=== PATIENT | female | born 1935 | race Caucasian/White ===

== ENCOUNTER 2016-06-15 14:13 | Outpatient (CLI) | payer MEDICARE, OTHER | END 2016-06-15 14:14 | disposition home or self-care (01) | DX: G47.33 Obstructive sleep apnea (adult) (pediatric) (principal) | CPT/HCPCS: 99214; G0463 ==

== ENCOUNTER 2016-07-27 08:41 | Outpatient (CLI) | payer MEDICARE, OTHER | END 2016-07-27 08:42 | disposition home or self-care (01) | DX: G47.33 Obstructive sleep apnea (adult) (pediatric) (principal) | CPT/HCPCS: 99213; G0463 ==

== ENCOUNTER 2016-09-07 09:00 | Outpatient (CLI) | payer MEDICARE, OTHER | END 2016-09-07 09:01 | disposition home or self-care (01) | DX: E11.65 Type 2 diabetes mellitus with hyperglycemia (principal); E88.81 Metabolic syndrome and other insulin resistance ==

== ENCOUNTER 2016-09-12 09:00 | Outpatient (CLI) | payer MEDICARE, OTHER | END 2016-09-12 09:01 | DX: N30.90 Cystitis, unspecified without hematuria (principal) ==

== ENCOUNTER 2017-03-26 07:11 | Outpatient (CLI) | payer MEDICARE, OTHER ==
[2017-03-26 11:59] LABS: BASOPHILS # (AUTO) 0.1 10^3/uL (0.0-0.1); BASOPHILS % (AUTO) 0.8 %; EOSINOPHILS # (AUTO) 0.3 10^3/uL (0.0-0.7); EOSINOPHILS % (AUTO) 4.2 %; HCT - HEMATOCRIT 36.7 % (37.0-47.0); HGB - HEMOGLOBIN 12.2 g/dL (12.0-16.0); LYMPHOCYTES # (AUTO) 2.1 10^3/uL (1.5-3.5); LYMPHOCYTES % (AUTO) 29.9 %; MEAN CORPUSCULAR HEMOGLOBIN 28.8 pg (27.0-31.0); MEAN CORPUSCULAR HGB CONC 33.3 g/dL (32.0-36.0); MEAN CORPUSCULAR VOLUME 86.7 fL (81.0-99.0); MEAN PLATELET VOLUME 9.4 fL (7.9-10.8); MONOCYTES # (AUTO) 0.5 10^3/uL (0.0-1.0); MONOCYTES % (AUTO) 6.7 %; NEUTROPHILS # (AUTO) 4.1 10^3/uL (1.5-6.6); NEUTROPHILS % (AUTO) 58.4 %; NUCLEATED RED BLOOD CELLS AUTO 0.1 /100WBC; RED BLOOD COUNT 4.23 10^6/uL (4.20-5.40); RED CELL DISTRIBUTION WIDTH 13.9 % (12.0-15.0); UNCORRECTED WHITE BLOOD COUNT 7.1 x10^3/uL; WHITE BLOOD COUNT 7.1 x10^3/uL (4.8-10.8)
[2017-03-26 12:26] LABS: ALBUMIN/GLOBULIN RATIO 1.2 (1.0-2.2); BILIRUBIN,TOTAL 0.4 mg/dL (0.2-1.0); BUN - BLOOD UREA NITROGEN 27 mg/dL (6-20); CALCIUM 9.3 mg/dL (8.5-10.3); CARBON DIOXIDE - CO2 25 mmol/L (21-32); CHLORIDE 99 mmol/L (101-111); CHOL/HDL RATIO 3.9 (<4.4); CHOLESTEROL 145 mg/dL; CREATININE 0.9 mg/dL (0.4-1.0); GFR - MDRD 60 (>89); GLUCOSE 133 mg/dL (70-100); HDL CHOLESTEROL 37 mg/dL; LDL/HDL RATIO 2.2 (<4.4); POTASSIUM 3.7 mmol/L (3.5-5.0); SODIUM 134 mmol/L (135-145); TOTAL PROTEIN 6.9 g/dL (6.7-8.2); TRIGLYCERIDES 134 mg/dL; VLDL CHOLESTEROL 27 mg/dL
[2017-03-26 12:49] LABS: HEMOGLOBIN A1C 0.59 g/dL
== END 2017-03-26 07:12 | disposition home or self-care (01) ==
LOC: LAB.F 07:11
PROVIDERS: ATTEND Nurse Practitioner Primary Care
DX: E11.9 Type 2 diabetes mellitus without complications (principal); Z79.899 Other long term (current) drug therapy; K57.90 Diverticulosis of intestine, part unspecified, without perforation or abscess without bleeding; I10 Essential (primary) hypertension
CPT/HCPCS: 36415; 80053; 80061; 82043; 83036; 85025

== ENCOUNTER 2017-05-21 10:05 | Outpatient (CLI) | payer MEDICARE, OTHER ==
[2017-05-24 12:41] LABS: TEST RESULT REPORT
== END 2017-05-21 10:06 | disposition home or self-care (01) ==
LOC: LAB.F 10:05
PROVIDERS: ATTEND Naturopath
DX: E27.9 Disorder of adrenal gland, unspecified (principal); E04.9 Nontoxic goiter, unspecified; R53.83 Other fatigue
CPT/HCPCS: 36415; 81599; 82607; 82627; 83789; 84439; 84481; 86376; 86800

== ENCOUNTER 2017-06-15 08:01 | Outpatient (CLI) | payer MEDICARE, OTHER ==
[2017-06-15 12:50] LABS: HB2 TOTAL 13.3 g/dL; HEMOGLOBIN A1C 0.63 g/dL; HEMOGLOBIN A1C % 6.5 % (4.6-6.2)
[2017-06-15 12:59] LABS: ALT ALANINE AMINOTRANSFERASE 19 IU/L (10-60); AST ASPARTATE AMINOTRANSFERASE 24 IU/L (10-42); GLUCOSE 129 mg/dL (70-100); LDL CHOLESTEROL,DIRECT 40 mg/dL
== END 2017-06-15 08:02 | disposition home or self-care (01) ==
LOC: LAB.F 08:01
PROVIDERS: ATTEND Nurse Practitioner Primary Care
DX: E11.9 Type 2 diabetes mellitus without complications (principal); Z79.899 Other long term (current) drug therapy
CPT/HCPCS: 36415; 82947; 83036; 84450; 84460

== ENCOUNTER 2017-08-21 11:07 | Outpatient (CLI) | payer MEDICARE, OTHER | END 2017-08-21 11:08 | disposition home or self-care (01) | LOC: SC 11:07 | PROVIDERS: ATTEND Nurse Practitioner Family | DX: G47.33 Obstructive sleep apnea (adult) (pediatric) (principal) | CPT/HCPCS: 99214; G0463; 99212 ==

== ENCOUNTER 2017-09-13 09:01 | Outpatient (CLI) | payer MEDICARE, OTHER | END 2017-09-13 09:02 | disposition home or self-care (01) | LOC: LAB.F 09:01 | PROVIDERS: ATTEND Naturopath | DX: E06.9 Thyroiditis, unspecified (principal); E27.9 Disorder of adrenal gland, unspecified; K90.9 Intestinal malabsorption, unspecified | CPT/HCPCS: 36415; 81599; 82542; 82627; 83789; 84439; 84481; 86376 ==

== ENCOUNTER 2017-10-31 11:18 | Outpatient (CLI) | payer MEDICARE, OTHER ==
--- NOTE | 2017-11-01 17:16 | Ultrasound Report ---
CAROTID DUPLEX: 10/31/2017 CLINICAL INDICATION: Partial retinal artery occlusion. TECHNIQUE: Real-time sonographic vascular imaging was performed by the training director through the carotid arteries utilizing both color-flow and Doppler spectral analysis. Multiple school admissions representative static images were saved for review. RIGHT Vessel PSV cm/sec EDV cm/sec ICA/CCA RSV Ratio Degree of Stenosis Plaque Estimate % RCCA Prox 96 -- -- RCCA Dist 79 17 -- RECA 107 -- -- RT BULB 52 12 0.66 TAHIR Prox 69 15 0.87 TAHIR Mid 66 17 0.84 TAHIR Dist 152 25 1.92 RVA 43 -- -- RVA flow direction: Antegrade LEFT Vessel PSV cm/sec EDV cm/sec ICA/CCA RSV Ratio Degree of Stenosis Plaque Estimate % LCCA Prox 83 -- -- LCCA Dist 72 15 -- LECA 107 -- -- LFT BULB 41 10 0.57 LICA Prox 110 25 1.53 LICA Mid 115 25 1.60 LICA Dist 141 28 1.96 LVA 48 -- -- LVA flow direction: Antegrade Velocity criteria are extrapolated from diameter data as defined by the Society of Radiologists in Ultrasound Consensus Conference Radiology 2003; 229; 340-346. 3 Degree of Stenosis % ICA PSV cm/sec ICA EDV cm/sec ICA/CCA PSV Ratio Plaque Estimate % Normal < 125 < 40 < 2.0 None <50 < 125 < 40 < 2.0 < 50 50-69 125-130 40-100 2.0-4.0 >/=50 >/=70 but less than near occlusion > 230 > 100 > 4.0 >/=50 Near occlusion High, low or undetectable Variable Variable Visible Total occlusion Undetectable Not applicable Not applicable No detectable lumen FINDINGS RIGHT: There is minimal plaquing in right carotid bifurcation, without evidence of a focal hemodynamically significant stenosis. LEFT: There is minimal plaquing in the left carotid bifurcation, without evidence of a focal hemodynamically significant stenosis. The vertebral arteries demonstrate antegrade flow bilaterally. IMPRESSION: MINIMAL PLAQUING BILATERALLY, WITHOUT EVIDENCE OF A FOCAL HEMODYNAMICALLY SIGNIFICANT CAROTID STENOSIS. TD: 11/01/2017 08:51 [facility]
== END 2017-10-31 11:19 | disposition home or self-care (01) ==
LOC: DI 11:18
PROVIDERS: ATTEND Ophthalmology
DX: H34.213 Partial retinal artery occlusion, bilateral (principal); I51.7 Cardiomegaly; I27.20 Pulmonary hypertension, unspecified
CPT/HCPCS: 93306; 93880

== ENCOUNTER 2017-12-14 10:59 | Outpatient (CLI) | payer MEDICARE, OTHER ==
[2017-12-14 13:17] LABS: BASOPHILS % (AUTO) 0.6 %; EOSINOPHILS # (AUTO) 0.3 10^3/uL (0.0-0.7); EOSINOPHILS % (AUTO) 3.9 %; HGB - HEMOGLOBIN 12.8 g/dL (12.0-16.0); LYMPHOCYTES # (AUTO) 1.7 10^3/uL (1.5-3.5); LYMPHOCYTES % (AUTO) 22.2 %; MEAN CORPUSCULAR HEMOGLOBIN 30.2 pg (27.0-31.0); MEAN CORPUSCULAR HGB CONC 33.9 g/dL (32.0-36.0); MEAN PLATELET VOLUME 8.1 fL (7.9-10.8); MONOCYTES # (AUTO) 0.5 10^3/uL (0.0-1.0); MONOCYTES % (AUTO) 6.5 %; NEUTROPHILS # (AUTO) 5.2 10^3/uL (1.5-6.6); NEUTROPHILS % (AUTO) 66.8 %; PLT - PLATELET COUNT 261 10^3/uL (130-450); RED BLOOD COUNT 4.23 10^6/uL (4.20-5.40); RED CELL DISTRIBUTION WIDTH 13.5 % (12.0-15.0); WHITE BLOOD COUNT 7.8 x10^3/uL (4.8-10.8)
[2017-12-14 13:32] LABS: ALBUMIN 3.4 g/dL (3.2-5.5); ALBUMIN/GLOBULIN RATIO 0.9 (1.0-2.2); ALKALINE PHOSPHATASE 90 IU/L (42-121); ALT ALANINE AMINOTRANSFERASE 21 IU/L (10-60); AST ASPARTATE AMINOTRANSFERASE 23 IU/L (10-42); BILIRUBIN,TOTAL 0.4 mg/dL (0.2-1.0); BUN - BLOOD UREA NITROGEN 21 mg/dL (6-20); CALCIUM 9.6 mg/dL (8.5-10.3); CARBON DIOXIDE - CO2 27 mmol/L (21-32); CHLORIDE 99 mmol/L (101-111); CHOL/HDL RATIO 3.1 (<4.4); CHOLESTEROL 147 mg/dL; CREATININE 0.7 mg/dL (0.4-1.0); GFR - MDRD 81 (>89); GLUCOSE 117 mg/dL (70-100); HDL CHOLESTEROL 48 mg/dL; LDL CHOLESTEROL,CALCULATED 67 mg/dL; LDL/HDL RATIO 1.4 (<4.4); MAGNESIUM 1.7 mg/dL (1.7-2.8); SODIUM 134 mmol/L (135-145); TOTAL PROTEIN 7.3 g/dL (6.7-8.2); VLDL CHOLESTEROL 32 mg/dL
[2017-12-14 13:43] LABS: THYROID STIMULATING HORMONE 1.79 uIU/mL (0.34-5.60)
== END 2017-12-14 11:00 | disposition home or self-care (01) ==
LOC: LAB.R 10:59
PROVIDERS: ATTEND Nurse Practitioner Primary Care
DX: I49.9 Cardiac arrhythmia, unspecified (principal); K58.9 Irritable bowel syndrome, unspecified; E78.6 Lipoprotein deficiency; E11.9 Type 2 diabetes mellitus without complications; K21.9 Gastro-esophageal reflux disease without esophagitis; I10 Essential (primary) hypertension; Z79.899 Other long term (current) drug therapy
CPT/HCPCS: 80053; 80061; 83721; 83735; 84439; 84443; 84481; 85025

== ENCOUNTER 2018-04-10 07:12 | Outpatient (CLI) | payer MEDICARE, OTHER ==
[2018-04-10 10:25] LABS: BASOPHILS # (AUTO) 0.1 10^3/uL (0.0-0.1); BASOPHILS % (AUTO) 0.9 %; EOSINOPHILS # (AUTO) 0.3 10^3/uL (0.0-0.7); EOSINOPHILS % (AUTO) 4.6 %; HGB - HEMOGLOBIN 12.6 g/dL (12.0-16.0); LYMPHOCYTES # (AUTO) 2.1 10^3/uL (1.5-3.5); LYMPHOCYTES % (AUTO) 27.6 %; MEAN CORPUSCULAR HEMOGLOBIN 30.6 pg (27.0-31.0); MEAN CORPUSCULAR HGB CONC 34.9 g/dL (32.0-36.0); MEAN CORPUSCULAR VOLUME 87.6 fL (81.0-99.0); MEAN PLATELET VOLUME 8.5 fL (7.9-10.8); MONOCYTES # (AUTO) 0.4 10^3/uL (0.0-1.0); MONOCYTES % (AUTO) 5.8 %; NEUTROPHILS # (AUTO) 4.7 10^3/uL (1.5-6.6); NEUTROPHILS % (AUTO) 61.1 %; PLT - PLATELET COUNT 289 10^3/uL (130-450); RED BLOOD COUNT 4.14 10^6/uL (4.20-5.40); RED CELL DISTRIBUTION WIDTH 13.6 % (12.0-15.0); WHITE BLOOD COUNT 7.7 x10^3/uL (4.8-10.8)
[2018-04-10 10:39] LABS: ALBUMIN 3.5 g/dL (3.2-5.5); BILIRUBIN,TOTAL 0.6 mg/dL (0.2-1.0); CALCIUM 8.8 mg/dL (8.5-10.3); CREATININE 0.7 mg/dL (0.4-1.0)
[2018-04-10 10:48] LABS: HB2 TOTAL 13.6 g/dL; HEMOGLOBIN A1C 0.61 g/dL; HEMOGLOBIN A1C % 6.3 % (4.6-6.2)
== END 2018-04-10 07:13 | disposition home or self-care (01) ==
LOC: LAB.F 07:12
PROVIDERS: ATTEND Nurse Practitioner Primary Care
DX: E55.9 Vitamin D deficiency, unspecified (principal); E11.9 Type 2 diabetes mellitus without complications; Z79.899 Other long term (current) drug therapy; I10 Essential (primary) hypertension
CPT/HCPCS: 36415; 80053; 82043; 82306; 83036; 85025

== ENCOUNTER 2018-05-21 09:48 | Outpatient (CLI) | payer MEDICARE, OTHER ==
[2018-05-21 18:30] LABS: CALCIUM 9.2 mg/dL (8.5-10.3); CREATININE 0.8 mg/dL (0.4-1.0)
== END 2018-05-21 09:49 | disposition home or self-care (01) ==
LOC: LAB.F 09:48
PROVIDERS: ATTEND Internal Medicine Cardiovascular Disease
DX: R60.0 Localized edema (principal)
CPT/HCPCS: 36415; 80048

== ENCOUNTER 2018-07-03 08:00 | Outpatient (CLI) | payer MEDICARE, OTHER | END 2018-07-03 23:59 | disposition home or self-care (01) | LOC: LAB.R 08:00 | PROVIDERS: ATTEND Nurse Practitioner Primary Care | DX: L29.9 Pruritus, unspecified (principal) | CPT/HCPCS: 87086; 87181 ==

== ENCOUNTER 2018-08-26 08:13 | Outpatient (CLI) | payer MEDICARE, OTHER | END 2018-08-26 08:14 | disposition home or self-care (01) | LOC: SC 08:13 | PROVIDERS: ATTEND Nurse Practitioner Family | DX: G47.33 Obstructive sleep apnea (adult) (pediatric) (principal) | CPT/HCPCS: 99214; G0463; 99212 ==

== ENCOUNTER 2018-12-10 07:45 | Outpatient (CLI) | payer MEDICARE, OTHER ==
[2018-12-10 11:23] LABS: CALCIUM 9.5 mg/dL (8.5-10.3); CREATININE 0.9 mg/dL (0.4-1.0)
[2018-12-10 11:24] LABS: HB2 TOTAL 12.8 g/dL; HEMOGLOBIN A1C 0.62 g/dL; HEMOGLOBIN A1C % 6.6 % (4.6-6.2)
== END 2018-12-10 07:46 | disposition home or self-care (01) ==
LOC: LAB.S 07:45
PROVIDERS: ATTEND Nurse Practitioner
DX: E11.9 Type 2 diabetes mellitus without complications (principal)
CPT/HCPCS: 36415; 80048; 82043; 83036

== ENCOUNTER 2019-02-17 15:48 | Outpatient (CLI) | payer MEDICARE, OTHER | END 2019-02-17 23:59 | disposition home or self-care (01) | LOC: LAB.R 15:48 | PROVIDERS: ATTEND Nurse Practitioner | DX: N39.0 Urinary tract infection, site not specified (principal) | CPT/HCPCS: 87077; 87086; 87181 ==

== ENCOUNTER 2019-02-19 08:17 | Outpatient (CLI) | payer MEDICARE, OTHER ==
--- NOTE | 2019-02-21 11:51 | XRAY Report ---
Reason: OSTEOARTHRITIS, M19.90 Procedure Date: 02/19/2019 Accession Number: [id number] / [id number] Procedure: XRS - Knee 3 View LT CPT Code: FULL RESULT: EXAM: LEFT KNEE RADIOGRAPHY EXAM DATE: 02/19/2019 08:33 AM. CLINICAL HISTORY: Osteoarthritis, M1..Chronic left knee pain. COMPARISON: XR KNEE 4 OR MORE VIEWS 05/20/2009 8:40 AM. TECHNIQUE: 3 views. FINDINGS: Bones: Normal. No fractures or bone lesions. Joints: Severe lateral compartment femorotibial degenerative changes with joint space loss and osteophytosis. Near [id number]. Moderate degenerative changes in the medial compartment and the patellofemoral joint. Chondrocalcinosis. Probable effusion. No subluxations. Soft Tissues: Normal. No soft tissue swelling. IMPRESSION: Advanced degenerative changes in the left knee, worst in the lateral compartment of the femorotibial joint, progressed from 2008. Kellgren Antonio Grade 4. Kellgren and Antonio classification of osteoarthritis: Grade 0: no radiographic features of osteoarthritis are present Grade 1: doubtful joint space narrowing (JSN) and possible osteophytic lipping Grade 2: definite osteophytes and possible JSN on anteroposterior weight-bearing radiograph Grade 3: multiple osteophytes, definite JSN, sclerosis, possible bony deformity Grade 4: large osteophytes, marked JSN, severe sclerosis and definite bony deformity RADIA
== END 2019-02-19 08:18 | disposition home or self-care (01) ==
LOC: DI.S 08:17
PROVIDERS: ATTEND Nurse Practitioner
DX: M17.12 Unilateral primary osteoarthritis, left knee (principal)

== ENCOUNTER 2019-03-25 13:00 | Outpatient (CLI) | payer MEDICARE, OTHER ==
[2019-03-25 19:29] LABS: BILIRUBIN,URINE NEGATIVE (NEGATIVE); GLUCOSE, URINE (UA) NEGATIVE (NEGATIVE); KETONES,URINE (UA) NEGATIVE (NEGATIVE); LEUKOCYTE ESTERASE, URINE MODERATE (NEGATIVE); NITRITE,URINE POSITIVE (NEGATIVE); OCCULT BLOOD,URINE MODERATE (NEGATIVE); PH,URINE 5.5 PH (5.0-7.5); PROTEIN,URINE 100 mg/dL (NEGATIVE); UROBILINOGEN,URINE 0.2 (NORMAL) E.U./dL (NORMAL)
[2019-03-25 19:34] LABS: CLARITY,URINE CLOUDY (CLEAR)
[2019-03-25 20:01] LABS: BACTERIA,URINE Many /HPF (None Seen); SQUAMOUS EPITHELIAL CELL,UR NONE SEEN (<= Few)
== END 2019-03-25 13:01 | disposition home or self-care (01) ==
LOC: LAB.R 13:00
PROVIDERS: ATTEND Nurse Practitioner
DX: R82.81 Pyuria (principal)
CPT/HCPCS: 81001; 81003; 87086; 87181

== ENCOUNTER 2019-06-23 08:00 | Outpatient (CLI) | payer MEDICARE, OTHER | END 2019-06-23 23:59 | LOC: LAB.R 08:00 | PROVIDERS: ATTEND Nurse Practitioner | DX: R82.81 Pyuria (principal) | CPT/HCPCS: 87077; 87086; 87181 ==

== ENCOUNTER 2019-10-02 16:49 | Outpatient (CLI) | payer MEDICARE, OTHER ==
--- NOTE | 2019-10-02 13:47 | SLEEP CARE CONSULTATION ---
Information from patient questionnaire entered by Felicity Oliva. I have reviewed and concur with the information entered by Felicity Oliva. This document represents the service I personally performed and the decisions made by me, Charito Linda, RN, MSN, [employer] OPERATOR HELPER. History of Present Illness Service Date and Time: 10/02/2019 1330 Previous diagnosis: Moderate, Obstructive Sleep Apnea-Hypopnea Syndrome AHI: 28.3 Reason for follow up: annual Equipment type: CPAP Equipment obtained from: [facility] Mask style: Nasal Backup mask available: Yes Last cushion change: 3 weeks ago CPAP Compliance Data - Data Reviewed with Patient Average duration of nightly device use: 7h 13m Compliance rate %: 98.9 Current pressure setting (cmH2O): 9 Humidity settin Heated hose settin Average residual AHI: 1.1 Average large leak: 58s Subjective Patient concerns: denies: aerophagia, mask discomfort, air blowing in eyes, mask leak noise, condensation in mask/hose, nasal congestion, dry mouth, nose, throat, epistaxis, other Observed to snore while using device: No Current pressure setting perceived as: comfortable On therapy, patient: reports: sleeping better, awakening more refreshed, being more awake and alert during the day, more rested overall, other. denies: drowsiness while driving Initial [place] Sleepiness Scale score: 4 Allergies and Home Medications Home medication list reviewed: No (no changes ) Review of Systems Review of systems same as previous: Yes Physical Exam Height: 5 ft 6 in Weight: 232 lb (home weight) Body Mass Index: 37.4 BMI Classification: Obese Impression and Plan 1. Obstructive Sleep Apnea-Hypopnea Syndrome, moderate, with good treatment compliance and good apnea control. On CPAP therapy, the patient has better sleep quality and is more rested overall. She is pleased with benefit of CPAP use and is getting supplies as needed from her new [facility]. She feels she has gained a little weight since last seen. Thus I discussed how significant weight gain or loss will affect her apnea risk and CPAP pressure requirements. She is advised to lose weight and of symptoms to report for CPAP pressure adjustment. Patient's apnea severity and rationale for treatment to reduce apnea, improve sleep quality and reduce cardiovascular and cerebrovascular events was reviewed. * Continue CPAP pressure at 9 cmH2O * Notify me if snoring with mask or feeling that the pressure is too much or too little * Attempt to lose weight * Call this office if any problems using CPAP * Return for follow up in 1 year, or sooner if concerns arise Visit Type: Telehealth Phone (to minimize the risk of COVID 19 exposure , the patient agrees to this visit and to bill insurance.) Video Type: Gridsum Patient Location: Home Location of Provider: Home Patient agrees and consents to this telehealth visit type: Yes Time Spent with Patient (minutes): 9 Provider Statement: I spent 100% of the Telehealth Phone Call with the patient with greater than 50% spent counseling the patient and coordination of care.
== END 2019-10-02 16:50 | disposition home or self-care (01) ==
LOC: SC 16:49
PROVIDERS: ATTEND Nurse Practitioner Family
DX: G47.33 Obstructive sleep apnea (adult) (pediatric) (principal); E66.9 Obesity, unspecified; Z68.37 Body mass index [BMI] 37.0-37.9, adult

== ENCOUNTER 2019-11-07 07:59 | Outpatient (CLI) | payer MEDICARE, OTHER ==
[2019-11-07 08:18] LABS: BASOPHILS % (AUTO) 0.5 %; EOSINOPHILS # (AUTO) 0.3 10^3/uL (0.0-0.7); EOSINOPHILS % (AUTO) 3.3 %; HGB - HEMOGLOBIN 11.7 g/dL (12.0-16.0); LYMPHOCYTES # (AUTO) 2.1 10^3/uL (1.5-3.5); LYMPHOCYTES % (AUTO) 25.2 %; MEAN CORPUSCULAR HEMOGLOBIN 29.8 pg (27.0-31.0); MEAN CORPUSCULAR HGB CONC 33.1 g/dL (32.0-36.0); MEAN CORPUSCULAR VOLUME 90.1 fL (81.0-99.0); MONOCYTES # (AUTO) 0.5 10^3/uL (0.0-1.0); MONOCYTES % (AUTO) 6.2 %; NEUTROPHILS # (AUTO) 5.3 10^3/uL (1.5-6.6); NEUTROPHILS % (AUTO) 64.4 %; PLT - PLATELET COUNT 263 10^3/uL (130-450); RED BLOOD COUNT 3.93 10^6/uL (4.20-5.40); RED CELL DISTRIBUTION WIDTH 13.2 % (12.0-15.0); WHITE BLOOD COUNT 8.2 x10^3/uL (4.8-10.8)
[2019-11-07 08:34] LABS: ALBUMIN 3.4 g/dL (3.2-5.5); ALBUMIN/GLOBULIN RATIO 0.9 (1.0-2.2); ALKALINE PHOSPHATASE 132 IU/L (42-121); ALT ALANINE AMINOTRANSFERASE 18 IU/L (10-60); AST ASPARTATE AMINOTRANSFERASE 20 IU/L (10-42); BILIRUBIN,TOTAL 0.3 mg/dL (0.2-1.0); BUN - BLOOD UREA NITROGEN 27 mg/dL (6-20); CALCIUM 9.1 mg/dL (8.5-10.3); CARBON DIOXIDE - CO2 26 mmol/L (21-32); CHLORIDE 102 mmol/L (101-111); CHOL/HDL RATIO 3.4 (<4.4); CHOLESTEROL 152 mg/dL; CREATININE 0.9 mg/dL (0.4-1.0); GLUCOSE 139 mg/dL (70-100); HDL CHOLESTEROL 45 mg/dL; HEMOGLOBIN A1C 0.58 g/dL; HEMOGLOBIN A1C % 6.6 % (4.6-6.2); LDL CHOLESTEROL,CALCULATED 80 mg/dL; LDL/HDL RATIO 1.8 (<4.4); SODIUM 137 mmol/L (135-145); TOTAL PROTEIN 7.2 g/dL (6.7-8.2); VLDL CHOLESTEROL 27 mg/dL
== END 2019-11-07 08:00 | disposition home or self-care (01) ==
LOC: LAB 07:59
PROVIDERS: ATTEND Nurse Practitioner
DX: E11.9 Type 2 diabetes mellitus without complications (principal); I49.9 Cardiac arrhythmia, unspecified; E07.9 Disorder of thyroid, unspecified; Z79.899 Other long term (current) drug therapy; E78.6 Lipoprotein deficiency; E55.9 Vitamin D deficiency, unspecified; K21.9 Gastro-esophageal reflux disease without esophagitis; I10 Essential (primary) hypertension
CPT/HCPCS: 36415; 80053; 80061; 82043; 82306; 83036; 83721; 84443; 85025

== ENCOUNTER 2019-12-31 09:32 | Emergency (ER) | payer MEDICARE, OTHER ==
[2019-12-31] MEDS ORDERED: MAGNESIUM SULFATE 2 GRAM 2 GM/50 ML BAG IV ONE (09:59)
--- NOTE | 2019-12-31 10:03 | ED Physician Documentation ---
History of Present Illness - Stated complaint Stated Complaint: IRREGULAR HEARTBEAT - Chief complaint Chief Complaint: Cardiac - History obtained from History obtained from: Patient, Family - History of Present Illness Timing: How many days ago (3) Pain level max: 0 Pain level now: 0 - Additonal information Additional information: 84-year-old female presents to the emergency department stating that she has had palpitations for the past 2 to 3 days. Seems to be better standing up, worse lying down. No chest pain. No shortness of breath. No nausea. No vomiting. No changes to her medications. She is unclear to what medication she takes. No recent illnesses. No fevers. Review of Systems Ten Systems: 10 systems reviewed and negative Constitutional: denies: Fever, Chills Ears: denies: Ear pain Nose: denies: Rhinorrhea / runny nose, Congestion Cardiac: denies: Chest pain / pressure Respiratory: denies: Dyspnea, Cough, Hemoptysis, Wheezing GI: denies: Abdominal Pain, Nausea, Vomiting, Diarrhea Skin: denies: Rash Musculoskeletal: denies: Neck pain, Back pain Neurologic: denies: Focal weakness, Numbness, Headache PD PAST MEDICAL HISTORY - Past Medical History Cardiovascular: Hypertension Respiratory: Sleep apnea, CPAP use, Other Neuro: None Endocrine/Autoimmune: Type 2 diabetes GI: GERD TURKEY EGG GATHERER: None : Incontinence HEENT: None Psych: None Musculoskeletal: Osteoporosis Derm: Other drug resistant infections - Past Surgical History Past Surgical History: Yes General: Colonoscopy /TURKEY EGG GATHERER: Tubal ligation, Other - Present Medications Home Medications: Ambulatory Orders Medication Instructions Recorded Confirmed Amlodipine Besylate 10 mg PO DAILY 09/01/13 12/31/19 Losartan [Cozaar] 100 mg PO DAILY 09/01/13 12/31/19 Metformin HCl 1,000 mg PO BID 09/01/13 12/31/19 Metoprolol Succinate [Toprol Xl] 100 mg PO DAILY 09/01/13 12/31/19 Omeprazole [Prilosec] 20 mg PO DAILY 09/01/13 12/31/19 Aspirin [Aspir 81] 81 mg PO DAILY 09/02/13 12/31/19 Furosemide 20 mg PO ONCE 12/31/19 12/31/19 Furosemide 40 mg PO ONCE 12/31/19 12/31/19 Potassium Chloride 10 meq PO DAILY 12/31/19 12/31/19 - Allergies Allergies/Adverse Reactions: Allergies Allergy/AdvReac Type Severity Reaction Status Date / Time erythromycin base Allergy Unknown Unknown Verified 12/31/19 09:41 [Erythromycin Base] - Social History Does the pt smoke?: No Smoking Status: Former smoker PD ED PE NORMAL - Vitals Vital signs reviewed: Yes - General General: Alert and oriented X 3, No acute distress, Well developed/nourished - HEENT HEENT: Moist mucous membranes - Neck Neck: Supple, no meningeal sign - Cardiac Cardiac: RRR, Strong equal pulses - Respiratory Respiratory: No respiratory distress, Clear bilaterally - Abdomen Abdomen: Soft, Non tender, Non distended - Derm Derm: Warm and dry - Extremities Extremities: No calf tenderness / cord - Neuro Neuro: Alert and oriented X 3 - Psych Psych: Normal mood, Normal affect Results - Vitals Vitals: Vital Signs - 24 hr 12/31/19 12/31/19 12/31/19 09:41 11:27 11:49 Temperature 36.8 C 36.6 C Heart Rate 70 58 L 59 L Respiratory 16 16 16 Rate Blood Pressure 174/72 H 174/70 H 173/98 H O2 Saturation 98 95 98 Oxygen O2 Source Room air - EKG (time done) 0941 Rate: Rate (enter#) (69) Rhythm: NSR, Other (PVC) [place]: Normal Intervals: Normal [place] QRS: Normal Ischemia: Non specific changes Compare to prior EKG: Old EKG unavailable - Labs Labs: Laboratory Tests 12/31/19 12/31/19 12/31/19 09:40 09:40 09:40 WBC 10.6 RBC 4.31 Hgb 12.8 Hct 38.5 MCV 89.3 MCH 29.7 MCHC 33.2 RDW 13.0 Plt Count 311 MPV 10.0 Neut # (Auto) 7.0 H Lymph # (Auto) 2.6 [place] # (Auto) 0.6 Eos # (Auto) 0.3 Baso # (Auto) 0.1 Absolute Nucleated RBC 0.00 Nucleated RBC % 0.0 Sodium 136 Potassium 3.7 Chloride 100 L Carbon Dioxide 24 Anion Gap 12.0 BUN 19 Creatinine 0.9 Estimated GFR (MDRD) 60 L Glucose 186 H Calcium 9.3 Phosphorus 2.7 Magnesium 1.5 L Total Bilirubin 0.6 AST 20 ALT 18 Alkaline Phosphatase 143 H Troponin I High Sens 4.9 Total Protein 7.6 Albumin 3.6 Globulin 4.0 Albumin/Globulin Ratio 0.9 L Lipase 49 - Rads (name of study) Chest x-ray Radiology: Prelim report reviewed, EMP read contemporaneously, See rad report (No acute abnormality) PD MEDICAL DECISION MAKING - ED course Complexity details: reviewed results, re-evaluated patient, considered differential, d/w patient, d/w family ED course: 84-year-old female presents to the emergency department with palpitations. Appears to have frequent PVCs. She is found to be hypomagnesemic. Magnesium was replaced. Feels better. She is already on metoprolol. We will have her follow-up with her doctor for further care. No evidence of acute coronary syndrome, PE, aortic dissection, pneumothorax. Patient counseled regarding signs and symptoms for which I believe and urgent re-evaluation would be necessary. Patient with good understanding of and agreement to plan and is comfortable going home at this time This document was made in part using voice recognition software. While efforts are made to proofread this document, sound alike and grammatical errors may occur. Departure - Departure Disposition: 01 Home, Self Care Clinical Impression: PVC (premature ventricular contraction), Hypomagnesemia Condition: Good Instructions: ED Palpitations Follow-Up: Erin Hodges ARNP, TIPPLE ENGINEER-C [Primary Care Provider] - Within 1 week Comments: Follow-up with your doctor for further care. We will add magnesium onto your pills. Your magnesium level was low today. Return if you worsen. Discharge Date/Time: 12/31/19 12:03
[2019-12-31 10:04] LABS: BASOPHILS # (AUTO) 0.1 10^3/uL (0.0-0.1); BASOPHILS % (AUTO) 0.7 %; EOSINOPHILS # (AUTO) 0.3 10^3/uL (0.0-0.7); EOSINOPHILS % (AUTO) 2.6 %; HGB - HEMOGLOBIN 12.8 g/dL (12.0-16.0); LYMPHOCYTES # (AUTO) 2.6 10^3/uL (1.5-3.5); LYMPHOCYTES % (AUTO) 24.4 %; MEAN CORPUSCULAR HEMOGLOBIN 29.7 pg (27.0-31.0); MEAN CORPUSCULAR HGB CONC 33.2 g/dL (32.0-36.0); MEAN CORPUSCULAR VOLUME 89.3 fL (81.0-99.0); MONOCYTES # (AUTO) 0.6 10^3/uL (0.0-1.0); MONOCYTES % (AUTO) 5.8 %; PLT - PLATELET COUNT 311 10^3/uL (130-450); RED BLOOD COUNT 4.31 10^6/uL (4.20-5.40); WHITE BLOOD COUNT 10.6 x10^3/uL (4.8-10.8)
[2019-12-31 10:16] LABS: ALBUMIN 3.6 g/dL (3.2-5.5); ALBUMIN/GLOBULIN RATIO 0.9 (1.0-2.2); BILIRUBIN,TOTAL 0.6 mg/dL (0.2-1.0); CALCIUM 9.3 mg/dL (8.5-10.3); CREATININE 0.9 mg/dL (0.4-1.0); MAGNESIUM 1.5 mg/dL (1.7-2.8); PHOSPHORUS 2.7 mg/dL (2.5-4.6); TOTAL PROTEIN 7.6 g/dL (6.7-8.2)
--- NOTE | 2019-12-31 10:33 | XRAY Report ---
PROCEDURE: Chest 1 View X-Ray INDICATIONS: Chest Pain TECHNIQUE: One view of the chest was acquired. COMPARISON: None FINDINGS: Surgical changes and devices: None. Lungs and pleura: No pleural effusions or pneumothorax. Lungs are clear. Mediastinum: Mediastinal contours appear normal. Heart size is normal. Bones and chest wall: No suspicious bony lesions. Overlying soft tissues appear unremarkable. IMPRESSION: No acute cardiopulmonary pathology. Reviewed by: Johnson Billy MD on 12/31/2019 10:31 AM PDT Approved by: Johnson Billy MD on 12/31/2019 10:31 AM PDT Station ID: [id number]
[2019-12-31 11:50] VITALS: BP 173/98
== END 2019-12-31 12:03 | disposition home or self-care (01) ==
LOC: ED 09:32
DX: I49.3 Ventricular premature depolarization (principal); E83.42 Hypomagnesemia; I10 Essential (primary) hypertension; E11.9 Type 2 diabetes mellitus without complications; Z79.84 Long term (current) use of oral hypoglycemic drugs; Z87.891 Personal history of nicotine dependence
CPT/HCPCS: 36415; 71045; 80053; 83690; 83735; 84100; 84484; 85025; 93005; 96374; 99284

== ENCOUNTER 2020-01-07 14:22 | Outpatient (CLI) | payer MEDICARE, OTHER ==
[2020-01-07 14:49] LABS: ALBUMIN 3.7 g/dL (3.2-5.5); ALBUMIN/GLOBULIN RATIO 0.9 (1.0-2.2); BILIRUBIN,TOTAL 0.7 mg/dL (0.2-1.0); CALCIUM 9.6 mg/dL (8.5-10.3); CREATININE 1.1 mg/dL (0.4-1.0); MAGNESIUM 1.8 mg/dL (1.7-2.8); TOTAL PROTEIN 7.6 g/dL (6.7-8.2)
== END 2020-01-07 14:23 | disposition home or self-care (01) ==
LOC: LAB 14:22
PROVIDERS: ATTEND Nurse Practitioner
DX: E83.42 Hypomagnesemia (principal); I49.3 Ventricular premature depolarization; E07.9 Disorder of thyroid, unspecified
CPT/HCPCS: 36415; 80053; 83735; 84443

== ENCOUNTER 2020-01-26 07:00 | Outpatient (CLI) | payer MEDICARE, OTHER | END 2020-01-26 23:59 | disposition home or self-care (01) | LOC: LAB.R 07:00 | PROVIDERS: ATTEND Physician Assistant | DX: N30.90 Cystitis, unspecified without hematuria (principal) | CPT/HCPCS: 87086 ==

== ENCOUNTER 2020-01-26 07:25 | Outpatient (CLI) | payer MEDICARE, OTHER ==
[2020-01-26 15:06] LABS: BASOPHILS % (AUTO) 0.5 %; EOSINOPHILS # (AUTO) 0.2 10^3/uL (0.0-0.7); EOSINOPHILS % (AUTO) 2.3 %; HGB - HEMOGLOBIN 11.7 g/dL (12.0-16.0); LYMPHOCYTES # (AUTO) 1.5 10^3/uL (1.5-3.5); LYMPHOCYTES % (AUTO) 17.3 %; MEAN CORPUSCULAR HEMOGLOBIN 28.6 pg (27.0-31.0); MEAN CORPUSCULAR HGB CONC 31.1 g/dL (32.0-36.0); MEAN CORPUSCULAR VOLUME 91.9 fL (81.0-99.0); MEAN PLATELET VOLUME 10.8 fL (7.9-10.8); MONOCYTES # (AUTO) 0.4 10^3/uL (0.0-1.0); MONOCYTES % (AUTO) 5.1 %; NEUTROPHILS # (AUTO) 6.4 10^3/uL (1.5-6.6); NEUTROPHILS % (AUTO) 74.4 %; PLT - PLATELET COUNT 304 10^3/uL (130-450); RED BLOOD COUNT 4.09 10^6/uL (4.20-5.40); RED CELL DISTRIBUTION WIDTH 13.5 % (12.0-15.0); WHITE BLOOD COUNT 8.6 x10^3/uL (4.8-10.8)
[2020-01-26 15:42] LABS: ALBUMIN 3.7 g/dL (3.2-5.5); BILIRUBIN,TOTAL 0.5 mg/dL (0.2-1.0); CALCIUM 9.9 mg/dL (8.5-10.3); MAGNESIUM 1.8 mg/dL (1.7-2.8); TOTAL PROTEIN 7.4 g/dL (6.7-8.2)
[2020-01-26 16:13] LABS: HB2 TOTAL 12.1 g/dL; HEMOGLOBIN A1C 0.61 g/dL; HEMOGLOBIN A1C % 6.8 % (4.6-6.2)
== END 2020-01-26 07:26 | disposition home or self-care (01) ==
LOC: LAB.S 07:25
PROVIDERS: ATTEND Nurse Practitioner
DX: N30.90 Cystitis, unspecified without hematuria (principal); E83.42 Hypomagnesemia; I49.3 Ventricular premature depolarization; E11.9 Type 2 diabetes mellitus without complications; D64.9 Anemia, unspecified
CPT/HCPCS: 36415; 80053; 83036; 83735; 85025; 87086

== ENCOUNTER 2020-02-03 09:50 | Outpatient (CLI) | payer MEDICARE, OTHER ==
--- NOTE | 2020-02-04 12:38 | Mammography Report ---
BILATERAL DIGITAL SCREENING MAMMOGRAM 3D/2D: 02/03/2020 CLINICAL: Routine screening. Comparison is made to exams dated: 12/14/2015 mammogram and 09/25/2013 mammogram - [facility]. There are scattered fibroglandular elements in both breasts. No significant masses, calcifications, or other findings are seen in either breast. There has been no significant interval change. IMPRESSION: NEGATIVE There is no mammographic evidence of malignancy. A 1 year screening mammogram is recommended. This exam was interpreted at Station ID: [id number]. NOTE: For mammograms, a report in lay terms will be sent to the patient. Approximately 15% of breast malignancies will not be visualized mammographically. In the management of a palpable breast mass, a negative mammogram must not discourage biopsy of a clinically suspicious lesion. Electronically Signed By: Ottoniel mcnamara/asad:02/03/2020 10:29:18 ACR BI-RADS Category 1: Negative 3341F PARENCHYMAL PATTERN: (A) - The breast(s) demonstrate(s) scattered fibroglandular densities. BI-RADS CATEGORY: (1) - 1 RECOMMENDATION: (ANNUAL) - Recommend routine annual screening mammography. [id number] 1 year screening LATERALITY: (B)
== END 2020-02-03 09:51 | disposition home or self-care (01) ==
LOC: DI 09:50
PROVIDERS: ATTEND Nurse Practitioner
DX: Z12.31 Encounter for screening mammogram for malignant neoplasm of breast (principal)
CPT/HCPCS: 77063; 77067

== ENCOUNTER 2020-02-03 09:51 | Outpatient (CLI) | payer MEDICARE, OTHER ==
--- NOTE | 2020-02-03 16:37 | DEXA Report ---
PROCEDURE: Dexa Spine and/or Hip INDICATIONS: POST MENOPAUSAL TECHNIQUE: Dual energy x-ray absorptiometry (DXA) was performed on a Agile System. Regions measur ed are the AP Spine, femoral neck, and if needed forearm. COMPARISON: 12/14/2015. FINDINGS: Lumbar Spine: Bone Mineral Density 1.461 g/cm/cm,T score 2.3, compared to 1.4 on prior exam Left Hip: Bone Mineral Density 1.108 g/cm/cm,T score 0.8, compared to 1.2 on prior exam. Left Femoral Neck: Bone Mineral Density 1.086 g/cm/cm, T score 0.3, compared to 0.2 on prior exam. (T score greater or equal to -1.0: NORMAL) (T score from -1.1 to -2.4: OSTEOPENIA) (T score less than or equal to -2.5 to: OSTEOPOROSIS) Impression: Normal bone density with slight loss of density in the left hip compared to prior exam. Patients with diagnosis of osteoporosis or osteopenia should have regular bone mineral density assess ment. For those eligible for Medicare, routine testing is allowed once every 2 years. Testing frequ ency can be increased for patients who have rapidly progressing disease or for those who are receivin g medical therapy to restore bone mass. Reviewed by: Chastity Hernandez MD on 02/03/2020 4:36 PM PDT Approved by: Chastity Hernandez MD on 02/03/2020 4:36 PM PDT Station ID: [id number]
== END 2020-02-03 09:52 | disposition home or self-care (01) ==
LOC: DI 09:51
PROVIDERS: ATTEND Nurse Practitioner
DX: Z78.0 Asymptomatic menopausal state (principal)
CPT/HCPCS: 77080

== ENCOUNTER 2020-02-17 12:21 | Outpatient (CLI) | payer MEDICARE, OTHER ==
[2020-02-17 12:58] LABS: BILIRUBIN,URINE NEGATIVE (NEGATIVE); GLUCOSE, URINE (UA) NEGATIVE (NEGATIVE); KETONES,URINE (UA) NEGATIVE (NEGATIVE); LEUKOCYTE ESTERASE, URINE LARGE (NEGATIVE); NITRITE,URINE NEGATIVE (NEGATIVE); OCCULT BLOOD,URINE SMALL (NEGATIVE); PH,URINE 6.5 PH (5.0-7.5); PROTEIN,URINE 100 mg/dL (NEGATIVE); UROBILINOGEN,URINE 0.2 (NORMAL) E.U./dL (NORMAL)
[2020-02-17 13:13] LABS: BACTERIA,URINE None Seen /HPF (None Seen); CLARITY,URINE CLEAR (CLEAR); SQUAMOUS EPITHELIAL CELL,UR NONE SEEN (<= Few); WBC CLUMPS,URINE PRESENT
== END 2020-02-17 12:22 | disposition home or self-care (01) ==
LOC: LAB 12:21
PROVIDERS: ATTEND Nurse Practitioner
DX: N30.90 Cystitis, unspecified without hematuria (principal)
CPT/HCPCS: 81001; 87086; 87181

== ENCOUNTER 2020-04-12 12:16 | Outpatient (CLI) | payer MEDICARE, OTHER | END 2020-04-12 12:17 | disposition home or self-care (01) | LOC: LAB 12:16 | PROVIDERS: ATTEND Ophthalmology | DX: Z01.812 Encounter for preprocedural laboratory examination (principal); Z20.828 Contact with and (suspected) exposure to other viral communicable diseases; H25.812 Combined forms of age-related cataract, left eye | CPT/HCPCS: 36415; U0004 ==

== ENCOUNTER 2020-04-15 06:31 | Day surgery (SDC) | payer MEDICARE, OTHER ==
[~2020-04-15 06:31] MED LIST: KETOROLAC 0.45% OPHTH DROPS ONE; PHENYLEPHRINE 2.5% OPHTH 2 ML DROPS ONE; PROPARACAINE 0.5% OPHTH DROPS 15 ML ONE
[2020-04-15] MEDS ORDERED: LACTATED RINGERS 1,000 ML IV ONE (06:42)
[2020-04-15] MEDS ORDERED: CYCLOPENTOLATE 2% OPHTH DROPS 2 ML LEFTEYE ONE (06:45)
--- NOTE | 2020-04-15 07:08 | ANESTHESIA ---
Pre-Anesthesia VS, & Labs - Diagnosis Left eye senile combined cataract - Procedure left eye cataract extraction with IOL implant Vital Signs: Temp Pulse Resp BP Pulse Ox 36.2 C L 63 12 182/57 H 97 04/15/20 06:46 04/15/20 06:46 04/15/20 06:46 04/15/20 06:46 04/15/20 06:46 Height: 5 ft 6 in Weight (kg): 103 kg Body Mass Index: 36.6 BMI Classification: Obese - NPO >8 hours - Is Patient ?: No - Lab Results Current Lab Results: Laboratory Tests 04/15/20 06:49: POC Whole Bld Glucose 145 H Home Medications and Allergies Home Medications: Ambulatory Orders Carvedilol [Coreg] 50 mg PO DAILY 04/14/20 Losartan [Cozaar] 100 mg PO DAILY 09/01/13 Metformin HCl 500 mg PO BID 09/01/13 Omeprazole [Prilosec] 20 mg PO DAILY 09/01/13 Aspirin [Aspir 81] 81 mg PO DAILY 09/02/13 Furosemide 20 mg PO DAILY 12/31/19 Potassium Chloride 10 meq PO DAILY 12/31/19 Carvedilol [Coreg] 50 mg PO DAILY 04/14/20 Allergies/Adverse Reactions: Allergies Allergy/AdvReac Type Severity Reaction Status Date / Time erythromycin base Allergy Intermediate Rash Verified 04/14/20 13:21 [Erythromycin Base] Anes History & Medical History - Anesthetic History Anesthesia Complications: reports: No previous complications - Medical History Cardiovascular: reports: Hypertension, Arrhythmia (PVCs) Pulmonary: reports: Sleep apnea, CPAP use Gastrointestinal: reports: GERD Urinary: reports: Incontinence Neuro: reports: None Musculoskeletal: reports: Osteoarthritis Endocrine/Autoimmune: reports: Type 2 diabetes Skin: reports: None Smoking Status: Former smoker (Quit 50 years ago) Psychosocial: reports: No issues indicated History of Cancer?: No - Surgical History General: Colonoscopy Gynecologic: Tubal ligation Exam General: Alert, Oriented x3, Cooperative, No acute distress Dental: WNL Mouth Openin Fingerbreadth Neck Mobility: Normal Mallampati classification: II Thyromental Distance: 4-6 cm Mental/Cognitive Status: Alert/Oriented X3, Normal for patient Plan Anesthesia Type: MAC Consent for Procedure(s) Verified and Reviewed: Yes Code Status: Attempt Resuscitation ASA classification: 3-Severe systemic disease Is this case an emergency?: No
[2020-04-15] MEDS ORDERED: TRIAMCIN/MOXIFLOX OPHTHALMIC 0.6 ML VIAL IO ONE ×2 (07:15→07:40)
[2020-04-15] MEDS ORDERED: EPINEPHrine 1 MG/ML AMP ONE (07:16)
[2020-04-15] MEDS ORDERED: BRIMONIDINE 0.2% OPHTH DROPS 5 ML ONE (07:16)
[2020-04-15] MEDS ORDERED: TIMOLOL 0.5% OPHTH DROPS ONE (07:16)
[2020-04-15] MEDS ORDERED: VANCOMYCIN OPHTHALMI 8MG/0.8ML 8 MG/0.8 ML SYRINGE IO ONE ×2 (07:17→07:41)
[2020-04-15] MEDS ORDERED: BSS/LIDOCAINE/EPINEPHRINE 1 ML SYRINGE ONE (07:17)
[2020-04-15] MEDS ORDERED: MIDAZOLAM 2 MG/2 ML VIAL IVP ONE (07:20)
[2020-04-15] MEDS ORDERED: fentaNYL 100 MCG/2 ML VIAL IVP ONE (07:20)
[2020-04-15] MEDS ORDERED: BRIMONIDINE 0.2% OPHTH DROPS 5 ML OPTH ONE (07:36)
[2020-04-15] MEDS ORDERED: EPINEPHrine 1 MG/ML AMP IR ONE (07:36)
[2020-04-15] MEDS ORDERED: CHONDR SULF/HYALURONATE SYRINGE IO ONE (07:36)
[2020-04-15] MEDS ORDERED: TIMOLOL 0.5% OPHTH DROPS OPTH ONE (07:39)
[2020-04-15] MEDS ORDERED: BSS/LIDOCAINE/EPINEPHRINE 1 ML SYRINGE IO ONE (07:40)
[2020-04-15] MEDS ORDERED: PROPARACAINE 0.5% OPHTH DROPS 15 ML EACHEYE ONE (07:41)
[2020-04-15] MEDS ORDERED: LACTATED RINGERS 500 ML IV ONE (07:52)
[2020-04-15 08:06] VITALS: BP 182/75
--- NOTE | 2020-04-15 08:12 | ANESTHESIA POST OP EVALUATION ---
Anesthesia Post Eval - Post Anesthesia Eval Vitals: Last Vital Signs Temp 36.1 C L 04/15/20 08:06 Pulse 53 L 04/15/20 08:06 Resp 12 04/15/20 08:06 BP 182/75 H 04/15/20 08:06 Pulse Ox 96 04/15/20 08:06 CV Function Including HR & BP: positive: Stable Pain Control: positive: Satisfactory Nausea & Vomiting: positive: Negative Mental Status: positive: Baseline Respiratory Status: Airway Patent Hydration Status: Satisfactory Anesthesia Complications: positive: None
--- NOTE | 2020-04-15 11:37 | OPERATIVE REPORT ---
DATE OF SERVICE: 04/15/2020 Physician: Dallin Edouard MD PREOPERATIVE DIAGNOSIS: Visually significant cataract, left eye. This was her first cataract surger y. POSTOPERATIVE DIAGNOSIS: Visually significant cataract, left eye. This was her first cataract surge ry. PROCEDURE: Phacoemulsification with posterior chamber intraocular lens implant, left eye. SURGEON: Dallin Edouard MD ANESTHESIA: Monitored anesthesia care. COMPLICATIONS: None. OPERATIVE INDICATIONS: This is an 84-year-old woman with progressive vision loss in the left eye due to 3+ nuclear sclerotic and 3+ cortical cataract. Best corrected visual acuity was 20/50, with glar e to 20/630 in the left eye. Indications for surgery are overall decrease in vision, difficulty read ing and difficulty driving in low light or at night and sometimes has double vision. She was consent ed at length concerning risks and benefits of cataract surgery, after which she expressed a desire to proceed with surgery. OPERATIVE PROCEDURE: The patient was taken to OR #3 and placed under monitored anesthesia care. Margarito gical timeout was conducted confirming correct patient, correct procedure, and correct surgical site. She was given topical anesthesia, and prepped and draped in the usual sterile fashion. The eye was entered at the 6 and 3 o'clock positions. Intracameral Shugarcaine was injected into the anterior c hamber, followed by Viscoat. A continuous-tear curvilinear capsulorrhexis was performed. Nucleus wa s hydrodissected and phacoemulsified. The cortex was evacuated using automated infusion and aspirati on. Provisc was injected in the capsular bag, and a 22.5 diopter intraocular lens was inserted into the bag. Infusion and aspiration was used to evacuate the viscoelastic materials. The eye was infla olive to physiologic pressure using balanced salt solution and found to be watertight. Approximately 0 .25 mL of a mixture of triamcinolone and moxifloxacin was injected transsclerally into the vitreous i n inferotemporal quadrant. An additional 0.55 mL of a mixture of triamcinolone, moxifloxacin, and va ncomycin was injected subconjunctivally in the superior quadrant for infection and inflammation proph ylaxis. Wound integrity was checked with Weck-Lyn sponges. Patient was taken from the Operating [facility] m in good condition and given postoperative instructions. TD: 04/15/2020 08:03
== END 2020-04-15 06:32 | disposition home or self-care (01) ==
LOC: SDS 06:31
PROVIDERS: ATTEND Ophthalmology
DX: E11.36 Type 2 diabetes mellitus with diabetic cataract (principal); H25.812 Combined forms of age-related cataract, left eye; Z79.84 Long term (current) use of oral hypoglycemic drugs; I10 Essential (primary) hypertension; H43.822 Vitreomacular adhesion, left eye; E66.9 Obesity, unspecified; Z68.36 Body mass index [BMI] 36.0-36.9, adult; Z87.891 Personal history of nicotine dependence; G47.30 Sleep apnea, unspecified
CPT/HCPCS: 66984; A9270; J3490; J7120; V2632

== ENCOUNTER 2020-04-20 11:47 | Outpatient (CLI) | payer MEDICARE, OTHER ==
[2020-04-20 13:48] LABS: BILIRUBIN,URINE NEGATIVE (NEGATIVE); GLUCOSE, URINE (UA) NEGATIVE (NEGATIVE); KETONES,URINE (UA) NEGATIVE (NEGATIVE); LEUKOCYTE ESTERASE, URINE MODERATE (NEGATIVE); NITRITE,URINE NEGATIVE (NEGATIVE); OCCULT BLOOD,URINE TRACE-INTA (NEGATIVE); PROTEIN,URINE 30 mg/dL (NEGATIVE); UROBILINOGEN,URINE 0.2 (NORMAL) E.U./dL (NORMAL)
[2020-04-20 13:49] LABS: CLARITY,URINE HAZY (CLEAR)
[2020-04-20 13:58] LABS: BACTERIA,URINE Moderate /HPF (None Seen); RBC,URINE 0-5 /HPF (0-5); SQUAMOUS EPITHELIAL CELL,UR RARE Squamous (<= Few)
== END 2020-04-20 11:48 | disposition home or self-care (01) ==
LOC: LAB 11:47
PROVIDERS: ATTEND Nurse Practitioner
DX: E83.42 Hypomagnesemia (principal); E11.9 Type 2 diabetes mellitus without complications; N30.90 Cystitis, unspecified without hematuria
CPT/HCPCS: 36415; 80053; 81001; 83036; 83735; 87086; 87181

== ENCOUNTER 2020-05-20 11:16 | Outpatient (CLI) | payer MEDICARE, OTHER ==
[2020-05-20 11:59] LABS: ALBUMIN 3.5 g/dL (3.2-5.5); BILIRUBIN,TOTAL 0.5 mg/dL (0.2-1.0); CALCIUM 9.5 mg/dL (8.5-10.3); MAGNESIUM 1.8 mg/dL (1.7-2.8)
== END 2020-05-20 11:17 | disposition home or self-care (01) ==
LOC: LAB 11:16
PROVIDERS: ATTEND Nurse Practitioner
DX: E83.42 Hypomagnesemia (principal); E11.9 Type 2 diabetes mellitus without complications; N30.90 Cystitis, unspecified without hematuria
CPT/HCPCS: 36415; 80053; 81001; 83036; 83735; 87086

== ENCOUNTER 2020-05-21 08:00 | Outpatient (CLI) | payer MEDICARE, OTHER ==
[2020-05-21 19:54] LABS: BILIRUBIN,URINE NEGATIVE (NEGATIVE); GLUCOSE, URINE (UA) NEGATIVE (NEGATIVE); KETONES,URINE (UA) NEGATIVE (NEGATIVE); LEUKOCYTE ESTERASE, URINE NEGATIVE (NEGATIVE); NITRITE,URINE NEGATIVE (NEGATIVE); OCCULT BLOOD,URINE TRACE-INTA (NEGATIVE); PROTEIN,URINE 30 mg/dL (NEGATIVE); UROBILINOGEN,URINE 0.2 (NORMAL) E.U./dL (NORMAL)
[2020-05-21 20:04] LABS: CLARITY,URINE CLEAR (CLEAR)
[2020-05-21 20:05] LABS: BACTERIA,URINE Rare /HPF (None Seen); RBC,URINE 0-5 /HPF (0-5); SQUAMOUS EPITHELIAL CELL,UR FEW Squamous (<= Few)
== END 2020-05-21 23:59 | disposition home or self-care (01) ==
LOC: LAB.S 08:00
PROVIDERS: ATTEND Nurse Practitioner
DX: N30.90 Cystitis, unspecified without hematuria (principal)
CPT/HCPCS: 81001; 87086

== ENCOUNTER 2020-05-21 12:33 | Outpatient (CLI) | payer MEDICARE, OTHER | END 2020-05-21 12:34 | disposition home or self-care (01) | LOC: COV 12:33 | PROVIDERS: ATTEND Ophthalmology | DX: Z01.812 Encounter for preprocedural laboratory examination (principal); Z20.828 Contact with and (suspected) exposure to other viral communicable diseases; H25.811 Combined forms of age-related cataract, right eye ==

== ENCOUNTER 2020-05-27 08:21 | Day surgery (SDC) | payer MEDICARE, OTHER ==
[~2020-05-27 08:21] MED LIST changes: +PROPARACAINE 0.5% OPHTH DROPS 15 ML EACHEYE ONE
[2020-05-27] MEDS ORDERED: LACTATED RINGERS 500 ML IV ONE ×2 (08:51→09:36)
[2020-05-27] MEDS ORDERED: CYCLOPENTOLATE 2% OPHTH DROPS 2 ML RIGHTEYE ONE (08:52)
--- NOTE | 2020-05-27 09:00 | ANESTHESIA ---
Pre-Anesthesia VS, & Labs - Diagnosis R senile combined cataract - Procedure R extraction cataract w/IOL Vital Signs: Temp Pulse Resp BP Pulse Ox 36.5 C 68 18 194/74 H 96 05/27/20 08:40 05/27/20 08:40 05/27/20 08:40 05/27/20 08:40 05/27/20 08:40 Height: 5 ft 6 in Weight (kg): 104.6 kg Body Mass Index: 37.2 BMI Classification: Obese - NPO >8 hours - Is Patient ?: No - Lab Results Lab results reviewed: Yes Home Medications and Allergies Losartan [Cozaar] 100 mg PO DAILY 09/01/13 Metformin HCl 500 mg PO BID 09/01/13 Omeprazole [Prilosec] 20 mg PO DAILY 09/01/13 Aspirin [Aspir 81] 81 mg PO DAILY 09/02/13 Furosemide 20 mg PO PRN PRN 12/31/19 Potassium Chloride 10 meq PO PRN PRN 12/31/19 Carvedilol [Coreg] 50 mg PO BID 04/14/20 Allergies/Adverse Reactions: Allergies Allergy/AdvReac Type Severity Reaction Status Date / Time erythromycin base Allergy Intermediate Rash Verified 04/14/20 13:21 [Erythromycin Base] Anes History & Medical History - Anesthetic History Anesthesia Complications: reports: No previous complications Family history of Anesthesia Complications: Denies Family history of Malignant Hyperthermia: Denies - Medical History Cardiovascular: reports: Hypertension, Arrhythmia Pulmonary: reports: Sleep apnea, CPAP use Gastrointestinal: reports: GERD Urinary: reports: Incontinence Neuro: reports: None Musculoskeletal: reports: Osteoporosis Endocrine/Autoimmune: reports: Type 2 diabetes Skin: reports: Other drug resistant infections Smoking Status: Former smoker (Quit 50 years ago) - Surgical History General: Colonoscopy Eyes Ears Nose Throat (EENT): Cataracts Gynecologic: Tubal ligation, Other Exam General: Alert, Oriented x3, Cooperative Mouth Openin Fingerbreadth Neck Mobility: Normal Mallampati classification: II Thyromental Distance: 4-6 cm Respiratory: Lungs clear, Normal breath sounds, No respiratory distress Cardiovascular: Regular rate Mental/Cognitive Status: Alert/Oriented X3, Normal for patient Cognitive Status: Within normal limits Plan Anesthesia Type: MAC Consent for Procedure(s) Verified and Reviewed: Yes Code Status: Attempt Resuscitation ASA classification: 3-Severe systemic disease Is this case an emergency?: No
[2020-05-27] MEDS ORDERED: fentaNYL 100 MCG/2 ML VIAL ONE (09:07)
[2020-05-27] MEDS ORDERED: MIDAZOLAM 2 MG/2 ML VIAL ONE (09:07)
[2020-05-27] MEDS ORDERED: BRIMONIDINE 0.2% OPHTH DROPS 5 ML OPTH ONE (09:17)
[2020-05-27] MEDS ORDERED: TIMOLOL 0.5% OPHTH DROPS OPTH ONE (09:18)
[2020-05-27] MEDS ORDERED: CHONDR SULF/HYALURONATE SYRINGE IO ONE (09:18)
[2020-05-27] MEDS ORDERED: EPINEPHrine 1 MG/ML AMP IR ONE (09:18)
[2020-05-27] MEDS ORDERED: BSS/LIDOCAINE/EPINEPHRINE 1 ML SYRINGE IO ONE (09:21)
[2020-05-27] MEDS ORDERED: TRIAMCIN/MOXIFLOX OPHTHALMIC 0.6 ML VIAL IO ONE (09:21)
[2020-05-27] MEDS ORDERED: VANCOMYCIN OPHTHALMI 8MG/0.8ML 8 MG/0.8 ML SYRINGE IO ONE (09:22)
[2020-05-27 09:39] VITALS: BP 171/59
--- NOTE | 2020-05-27 10:43 | ANESTHESIA POST OP EVALUATION ---
Anesthesia Post Eval - Post Anesthesia Eval Vitals: Last Vital Signs Temp 36.3 C L 05/27/20 09:37 Pulse 59 L 05/27/20 09:37 Resp 14 05/27/20 09:37 BP 171/59 H 05/27/20 09:37 Pulse Ox 97 05/27/20 09:37 CV Function Including HR & BP: positive: Stable Pain Control: positive: Satisfactory Nausea & Vomiting: positive: Negative Mental Status: positive: Baseline Respiratory Status: Airway Patent Hydration Status: Satisfactory Anesthesia Complications: positive: None
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
== END 2020-05-27 08:22 | disposition home or self-care (01) ==
LOC: SDS 08:21
PROVIDERS: ATTEND Ophthalmology
DX: E11.36 Type 2 diabetes mellitus with diabetic cataract (principal); H25.811 Combined forms of age-related cataract, right eye; E66.9 Obesity, unspecified; Z68.37 Body mass index [BMI] 37.0-37.9, adult; Z79.84 Long term (current) use of oral hypoglycemic drugs; Z79.82 Long term (current) use of aspirin; I10 Essential (primary) hypertension; G47.30 Sleep apnea, unspecified; K21.9 Gastro-esophageal reflux disease without esophagitis; R32 Unspecified urinary incontinence; M81.0 Age-related osteoporosis without current pathological fracture; Z87.891 Personal history of nicotine dependence
CPT/HCPCS: 66984; A9270; J3490; J7120; V2632

== ENCOUNTER 2020-06-19 15:02 | Outpatient (CLI) | payer MEDICARE, OTHER ==
--- NOTE | 2020-06-19 19:48 | Ultrasound Report ---
PROCEDURE: Ext Limited Non Vascular INDICATIONS: LEFT INNER THIGH SUBCUTANEOUS MASS TECHNIQUE: Real-time scanning was performed of the left posterior medial thigh, with image documenta tion. COMPARISON: None. FINDINGS: At the palpable abnormality in the left posterior medial thigh there is an isoechoic subcu taneous mass measuring 1.6 x 1.1 x 0.7 cm. The abnormality is noncompressible. There is peripheral bl ood flow. IMPRESSION: Palpable abnormality in the left posterior medial thigh is most compatible with a lipoma. Patient denies pain or change in size. If the abnormality becomes painful or increases in size recommend ultrasound-guided biopsy. Reviewed by: Lm Person MD on 06/19/2020 6:47 PM [facility] Approved by: Lm Person MD on 06/19/2020 6:47 PM [facility] Station ID: [id number]
--- OUTSIDE RECORDS SUMMARY | 2020-06-23 01:52 | EXTERNAL MEDICAL SUMMARY RPT | Continuity of Care Document ---
:1935 Demographics Phone Unavailable Preferred Language Grenadian Marital Status Unknown Congregation Affiliation Unknown Race Unknown Ethnic Group Unknown Author Organization [place] Address [address] [id number] Phone Care Team Providers Name Role Phone Puhr Unavailable Unavailable Stewardson Unavailable Unavailable DRAPERY SEWER HAND Unavailable Unavailable Roof Unavailable Unavailable Jacus Unavailable Unavailable Owen Unavailable Unavailable MCCLELLAN Unavailable Unavailable Problems date description facility 2013-08-27 07:28 DIAB PHILOMENA WO COMPL, TYPE II OR [facility] UNSPEC TYPE, NOT UNCNTRLD 2013-08-27 07:28 HYPERTENSION NOS [facility] 2013-08-27 07:28 OTH MED,LT,CURRENT USE [facility] 2013-09-02 06:21 BENIGN NEOPLASM LG BOWEL [facility] 2013-09-02 06:21 DIAB PHILOMENA WO COMPL, TYPE II OR [facility] UNSPEC TYPE, NOT UNCNTRLD 2013-09-02 06:21 MORBID OBESITY [facility] 2013-09-02 06:21 OBSTRUCTIVE SLEEP APNEA (ADULT) [facility] (PEDIATRIC) 2013-09-02 06:21 HYPERTENSION NOS [facility] 2013-09-02 06:21 ESOPHAGEAL REFLUX [facility] 2013-09-02 06:21 DIVERTICULOSIS COLON (W/O MENT [facility] OF HEMORRHAGE) 2013-09-02 06:21 FAMILY HX-GI MALIGNANCY [facility] 2013-09-02 06:21 FAMILY HX-MALIGNANCY NEC [facility] 2013-09-02 06:21 SCREEN MAL NEOP-COLON [facility] dical [place] 2013-09-25 11:24 LOC OSTEOARTH NOS-PELVIS [facility] 2013-09-25 11:24 MYALGIA AND MYOSITIS NOS [facility] 2013-09-25 11:24 OTH SCREEN MAMMO-MALIGN [facility] NEOPLASM OF BREAST 2013-12-18 07:58 DIAB PHILOMENA WO COMPL, TYPE II OR [facility] UNSPEC TYPE, NOT UNCNTRLD 2013-12-18 07:58 OTH MED,LT,CURRENT USE [facility] 2014-04-02 09:48 DIAB PHILOMENA WO COMPL, TYPE II OR [facility] UNSPEC TYPE, NOT UNCNTRLD 2014-04-08 14:07 OBSTRUCTIVE SLEEP APNEA (ADULT) [facility] (PEDIATRIC) 2014-04-08 14:07 CRAMP IN LIMB [facility] 2014-07-06 12:04 LOC OSTEOARTH NOS-L/LEG [facility] 2014-09-10 08:43 DIAB PHILOMENA WO COMPL, TYPE II OR [facility] UNSPEC TYPE, NOT UNCNTRLD 2014-09-10 08:43 HYPERTENSION NOS [facility] 2014-09-10 08:43 OTH MED,LT,CURRENT USE [facility] 2014-09-15 08:00 DIAB PHILOMENA WO COMPL, TYPE II OR [facility] UNSPEC TYPE, UNCONTROLLED 2014-09-15 08:00 OBESITY, NOS [facility] 2014-09-15 08:00 HYPERTENSION NOS [facility] 2015-01-26 11:15 DIAB PHILOMENA WO COMPL, TYPE II OR [facility] UNSPEC TYPE, NOT UNCNTRLD 2015-01-26 11:15 HYPOSMOLALITY [facility] 2015-01-26 11:15 HYPERTENSION NOS [facility] 2015-01-26 11:15 SWELLING OF LIMB [facility] 2015-01-29 11:02 DIAB PHILOMENA WO COMPL, TYPE II OR [facility] UNSPEC TYPE, NOT UNCNTRLD 2015-01-29 11:02 HYPOPOTASSEMIA [facility] 2015-01-29 11:02 RENAL URETERAL DIS NOS [facility] 2015-05-04 07:09 HYPO-OSMOLALITY AND [facility] HYPONATREMIA 2015-05-04 07:09 OTHER PENITENTIARY (CURRENT) DRUG [facility] THERAPY 2015-07-21 07:43 TYPE 2 DIABETES MELLITUS WITH [facility] HYPERGLYCEMIA 2015-11-03 07:41 TYPE 2 DIABETES MELLITUS [facility] WITHOUT COMPLICATIONS 2015-11-03 07:41 ESSENTIAL (PRIMARY) [facility] HYPERTENSION 2015-12-14 09:24 ENCNTR SCREEN MAMMOGRAM FOR [facility] MALIGNANT NEOPLASM OF BREAST 2015-12-14 09:24 ASYMPTOMATIC MENOPAUSAL STATE [facility] 2016-04-24 10:10 OBSTRUCTIVE SLEEP APNEA (ADULT) [facility] (PEDIATRIC) 2016-05-15 19:25 OBSTRUCTIVE SLEEP APNEA (ADULT) [facility] (PEDIATRIC) 2016-05-15 19:25 BODY MASS INDEX (BMI) [facility] 40.0-44.9, ADULT 2016-05-19 07:09 TYPE 2 DIABETES MELLITUS [facility] WITHOUT COMPLICATIONS 2016-05-19 07:09 HYPO-OSMOLALITY AND [facility] HYPONATREMIA 2016-05-19 07:09 ESSENTIAL (PRIMARY) [facility] HYPERTENSION 2016-05-19 07:09 GASTRO-ESOPHAGEAL REFLUX [facility] DISEASE WITHOUT ESOPHAGITIS 2016-05-19 07:09 OTHER SENIOR CONTRACT SPECIALIST (CURRENT) DRUG [facility] THERAPY 2016-06-15 14:13 OBSTRUCTIVE SLEEP APNEA (ADULT) [facility] (PEDIATRIC) 2016-07-27 08:41 OBSTRUCTIVE SLEEP APNEA (ADULT) [facility] (PEDIATRIC) 2016-09-07 09:00 TYPE 2 DIABETES MELLITUS WITH [facility] HYPERGLYCEMIA 2016-09-07 09:00 METABOLIC SYNDROME [facility] 2016-09-12 09:00 CYSTITIS, UNSPECIFIED WITHOUT [facility] HEMATURIA 2017-03-26 07:11 TYPE 2 DIABETES MELLITUS [facility] WITHOUT COMPLICATIONS 2017-03-26 07:11 ESSENTIAL (PRIMARY) [facility] HYPERTENSION 2017-03-26 07:11 DVRTCLOS OF INTEST, PART UNSP, [facility] W/O PERF OR ABSCESS W/O BLEED 2017-03-26 07:11 OTHER PENITENTIARY (CURRENT) DRUG [facility] THERAPY 2017-05-21 10:05 NONTOXIC GOITER, UNSPECIFIED [facility] 2017-05-21 10:05 DISORDER OF ADRENAL GLAND, [facility] UNSPECIFIED 2017-05-21 10:05 OTHER FATIGUE [facility] 2017-06-15 08:01 TYPE 2 DIABETES MELLITUS [facility] WITHOUT COMPLICATIONS 2017-06-15 08:01 OTHER PENITENTIARY (CURRENT) DRUG 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, BILATERAL 2017-10-31 11:18 PULMONARY HYPERTENSION, [facility] UNSPECIFIED 2017-10-31 11:18 CARDIOMEGALY [facility] 2017-12-14 10:59 TYPE 2 DIABETES MELLITUS [facility] WITHOUT COMPLICATIONS 2017-12-14 10:59 LIPOPROTEIN DEFICIENCY [facility] 2017-12-14 10:59 ESSENTIAL (PRIMARY) [facility] HYPERTENSION 2017-12-14 10:59 CARDIAC ARRHYTHMIA, UNSPECIFIED [facility] 2017-12-14 10:59 GASTRO-ESOPHAGEAL REFLUX [facility] DISEASE WITHOUT ESOPHAGITIS 2017-12-14 10:59 IRRITABLE BOWEL SYNDROME [facility] WITHOUT DIARRHEA 2017-12-14 10:59 OTHER PENITENTIARY (CURRENT) DRUG [facility] THERAPY 2018-04-10 07:12 TYPE 2 DIABETES MELLITUS [facility] WITHOUT COMPLICATIONS 2018-04-10 07:12 VITAMIN D DEFICIENCY, [facility] UNSPECIFIED 2018-04-10 07:12 ESSENTIAL (PRIMARY) [facility] HYPERTENSION 2018-04-10 07:12 OTHER SENIOR CONTRACT SPECIALIST (CURRENT) DRUG [facility] THERAPY 2018-05-21 09:48 LOCALIZED EDEMA [facility] 2018-07-03 08:00 PRURITUS, UNSPECIFIED [facility] dical [place] 2018-08-26 08:13 OBSTRUCTIVE SLEEP APNEA (ADULT) [facility] (PEDIATRIC) 2018-12-10 07:45 TYPE 2 DIABETES MELLITUS [facility] WITHOUT COMPLICATIONS 2019-02-17 15:48 URINARY TRACT INFECTION, SITE [facility] NOT SPECIFIED 2019-02-19 08:17 UNILATERAL PRIMARY [facility] OSTEOARTHRITIS, LEFT KNEE 2019-03-25 13:00 PYURIA [facility] 2019-06-23 08:00 PYURIA [facility] 2019-10-02 16:49 OBESITY, UNSPECIFIED [facility] ical [place] 2019-10-02 16:49 OBSTRUCTIVE SLEEP APNEA (ADULT) [facility] (PEDIATRIC) 2019-10-02 16:49 BODY MASS INDEX (BMI) [facility] 37.0-37.9, ADULT 2019-11-07 07:59 DISORDER OF THYROID, [facility] UNSPECIFIED 2019-11-07 07:59 TYPE 2 DIABETES MELLITUS [facility] WITHOUT COMPLICATIONS 2019-11-07 07:59 VITAMIN D DEFICIENCY, [facility] UNSPECIFIED 2019-11-07 07:59 LIPOPROTEIN DEFICIENCY [facility] 2019-11-07 07:59 ESSENTIAL (PRIMARY) [facility] HYPERTENSION 2019-11-07 07:59 CARDIAC ARRHYTHMIA, UNSPECIFIED [facility] 2019-11-07 07:59 GASTRO-ESOPHAGEAL REFLUX [facility] DISEASE WITHOUT ESOPHAGITIS 2019-11-07 07:59 OTHER PENITENTIARY (CURRENT) DRUG [facility] THERAPY 2019-12-31 09:32 TYPE 2 DIABETES MELLITUS [facility] WITHOUT COMPLICATIONS 2019-12-31 09:32 HYPOMAGNESEMIA [facility] 2019-12-31 09:32 ESSENTIAL (PRIMARY) [facility] HYPERTENSION 2019-12-31 09:32 VENTRICULAR PREMATURE [facility] DEPOLARIZATION 2019-12-31 09:32 PALPITATIONS [facility] 2019-12-31 09:32 PENITENTIARY (CURRENT) USE OF ORAL [facility] HYPOGLYCEMIC DRUGS 2019-12-31 09:32 PERSONAL HISTORY OF NICOTINE [facility] DEPENDENCE 2020-01-07 14:22 DISORDER OF THYROID, [facility] UNSPECIFIED 2020-01-07 14:22 HYPOMAGNESEMIA [facility] 2020-01-07 14:22 VENTRICULAR PREMATURE [facility] 2020-01-26 07:00 CYSTITIS, UNSPECIFIED WITHOUT [facility] HEMATURIA 2020-01-26 07:25 ANEMIA, UNSPECIFIED [facility] 2020-01-26 07:25 TYPE 2 DIABETES MELLITUS [facility] WITHOUT COMPLICATIONS 2020-01-26 07:25 HYPOMAGNESEMIA [facility] 2020-01-26 07:25 VENTRICULAR PREMATURE [facility] 2020-01-26 07:25 CYSTITIS, UNSPECIFIED WITHOUT [facility] HEMATURIA 2020-02-03 09:50 ENCNTR SCREEN [facility]NT NEOPLAS[facility] OF BREAST 2020-02-03 09:51 ASYMPTOMATIC MENOPAUSAL STATE [facility] 2020-02-12 06:27 BENIGN NEOPLASM OF CECUM [facility] 2020-02-12 06:27 TYPE 2 DIABETES MELLITUS [facility] WITHOUT COMPLICATIONS 2020-02-12 06:27 SLEEP APNEA, UNSPECIFIED [facility] 2020-02-12 06:27 ESSENTIAL (PRIMARY) [facility] HYPERTENSION 2020-02-12 06:27 CARDIAC ARRHYTHMIA, UNSPECIFIED [facility] 2020-02-12 06:27 DVRTCLOS OF LG INT W/O [facility] PERFORATION OR ABSCESS W/O BLEEDING 2020-02-12 06:27 PERIANAL VENOUS THROMBOSIS [facility] 2020-02-12 06:27 OTHER FECAL ABNORMALITIES [facility] 2020-02-12 06:27 PERSONAL HISTORY OF NICOTINE [facility] DEPENDENCE 2020-02-17 12:21 CYSTITIS, UNSPECIFIED WITHOUT [facility] HEMATURIA 2020-04-12 00:00:00 Urinalysis with Microscopic [facility] 2020-04-12 09:00 COMBINED FORMS OF AGE-RELATED [facility] CATARACT, LEFT EYE 2020-04-12 12:16 COMBINED FORMS OF AGE-RELATED [facility] CATARACT, LEFT EYE 2020-04-20 00:00:00 COMPREHENSIVE METABOLIC PANEL [facility] Primary [facility] [place] [facility] 2020-04-20 00:00:00 HGBA1C [facility] 2020-04-20 00:00:00 Magnesium (Mg) [facility] 2020-04-20 11:47 TYPE 2 DIABETES MELLITUS [facility] WITHOUT COMPLICATIONS 2020-04-20 11:47 HYPOMAGNESEMIA [facility] 2020-04-22 00:00:00 Urinalysis with Microscopic [facility], Culture in Indicated [facility] 2020-05-20 11:16 TYPE 2 DIABETES MELLITUS [facility] WITHOUT COMPLICATIONS 2020-05-20 11:16 HYPOMAGNESEMIA [facility] 2020-05-20 11:16 CYSTITIS, UNSPECIFIED WITHOUT [facility] HEMATURIA 2020-05-21 00:00 CYSTITIS, UNSPECIFIED WITHOUT [facility] HEMATURIA 2020-05-21 08:00 CYSTITIS, UNSPECIFIED WITHOUT [facility] HEMATURIA 2020-06-01 00:00:00 Lump or mass in breast [facility] [place] [facility] 2020-06-01 00:00:00 Swelling of limb [facility] 2020-06-01 00:00:00 US EXTREMITY LIMITED NON [facility] VASCULAR [place] [facility] 2020-06-01 00:00:00 Urinalysis with Microscopic [facility] 2020-06-01 00:00:00 Unspecified lump in unspecified idb [facility] Primary Care breast [place] [facility] 2020-06-01 00:00:00 Localized swelling, mass and [facility] Primary Care lump, unspecified lower limb [place] [facility] 2020-06-01 00:00:00 [facility] [place] [facility] 2020-06-01 00:00:00 Tobacco use and exposure [facility] Primary [facility] [place] [facility] 2020-06-01 00:00:00 [facility] [place] [facility] 2020-06-01 00:00:00 [facility] [place] [facility] 2020-06-01 00:00:00 Details of drug misuse behavior [facility] Primary [facility] [place] [facility] 2020-06-01 00:00:00 [facility] [place] [facility] 2020-06-01 00:00:00 Tobacco smoking status [facility] Primary [facility] [place] [facility] 2020-06-01 00:00:00 Total score? [facility] [place] [facility] 2020-06-01 00:00:00 Former [facility] [place] [facility] 2020-06-01 00:00:00 Breast [facility] [place] [facility] 2020-06-19 15:02 LOCALIZED SWELLING, MASS AND [facility] LUMP, UNSPECIFIED LOWER LIMB 2020-06-19 15:15 LOCALIZED SWELLING, MASS AND [facility] LUMP, UNSPECIFIED LOWER LIMB Allergies date description facility [facility] No known allergies [facility] GABAPENTIN [facility]OCODONE [facility]IDINE [facility] MORPHINE [facility] WARFARIN [facility] ZIPRASIDONE [facility] NO KNOWN ENVIRONMENTAL ALLERGIES [facility] SULFA ANTIBIOTICS [facility] GRASS [facility] No Known Medication Allergies [facility] PENICILLINS [facility] NO KNOWN ALLERGIES [facility] EGG [facility] erythromycin base [facility] NO ALLERGY INFORMATION AVAILABLE [facility] NO KNOWN ALLERGIES [facility] erythromycin [facility] FENOFIBRATE [facility] IBUPROFEN [facility] LITHIUM [facility] LOVASTATIN [facility] NO KNOWN ALLERGIES [facility] LATEX, NATURAL RUBBER [facility] dical Center sulfa drugs [facility] Keflex [facility] Avelox [facility] penicillin [facility] HYDROCODONE [facility] LISINOPRIL [facility] PROCAINE [facility] TR[facility]ADOL [facility] NOVOCAIN [facility] PENICILLINS [facility] STATINS [facility] AMOXICILLIN TRIHYDRATE [facility] CEPHALEXIN MONOHYDRATE [facility] HYDROCODONE [facility] LATEX [facility] LISINOPRIL [facility] OXYCODONE [facility] PENICILLIN [facility] SULFA (SULFONAMIDE ANTIBIOTICS) [facility] NO KNOWN ALLERGIES [facility] NO ALLERGY INFORMATION AVAILABLE [facility] NSAIDS (NON-STEROIDAL ANTI-INFLAMMATORY DRUG) [facility] SHELLFISH-DERIVED PRODUCTS [facility] SHRIMP FLAVOR [facility] CODEINE [facility] AMPICILLIN [facility] SIMVASTATIN [facility] AMLODIPINE [facility] AMOXICILLIN [facility] LISINOPRIL [facility] PNEUMOC 13-GAURAV CONJ-DIP CR(PF) [facility] PNEUMOCOCCAL 23-GAURAV PS VACCINE [facility] erythromycin base [facility] Codeine [facility] HYDROcodone [facility] No known allergies [facility] Adhesive tape [facility] ADHESIVE \T\ TAPE [facility] ASPIRIN [facility] CEPHALEXIN [facility] CHLORHEXIDINE [facility] CODEINE [facility] CORTISONE [facility] GABAPENTIN [facility] HYDROCODONE [facility] LISINOPRIL [facility] LITHIUM [facility] LORAZEPAM [facility] MORPHINE [facility] MOXIFLOXACIN [facility] NAPROXEN [facility] POLLEN EXTRACT [facility] PREDNISOLONE [facility] PREDNISONE [facility] PROCAINE [facility] PROCHLORPERAZINE [facility] PROPAFENONE [facility] TRAMADOL [facility] VARENICLINE [facility] ZINC OXIDE [facility] ZIPRASIDONE [facility] NOVOCAIN [facility] NO KNOWN ENVIRONMENTAL ALLERGIES [facility] NSAIDS [facility] PENICILLINS [facility] STATINS [facility] SULFA ANTIBIOTICS [facility] Codeine [facility] Penicillins [facility] Sulfa Antibiotics [facility] METFORMIN [facility] NO KNOWN ALLERGIES [facility] DAIRY PRODUCTS [facility] SOY [facility] NO ALLERGY INFORMATION AVAILABLE [facility] PENICILLINS [facility] VANCOMYCIN ANALOGUES [facility] SULFA (SULFONAMIDE ANTIBIOTICS) [facility] NO KNOWN ALLERGIES [facility] GLUTEN MEAL [facility] LACTOSE [facility] LATEX [facility] LACTASE [facility] CODEINE [facility] MOLD [facility] PREDNISONE [facility] DEXAMETHASONE SODIUM PHOSPHATE [facility] NAPROXEN [facility] CEPHALEXIN [facility] ERYTHROMYCIN BASE [facility] PRAVASTATIN [facility] HYDRALAZINE [facility] MEPERIDINE [facility] PENICILLIN G [facility] LISINOPRIL [facility] BEE VENOM PROTEIN (HONEY BEE) [facility] LATEX [facility] ARIPIPRAZOLE [facility] HYDROCODONE-ACETAMINOPHEN [facility] [place] EMOLLIENT [facility] DIVALPROEX [facility] Sulfa (Sulfonamide Antibiotics) [facility] No Known Drug Allergies [facility] erythromycin base [facility] ADHESIVE \T\ TAPE [facility] AZATHIOPRINE [facility] CEPHALEXIN [facility] CODEINE [facility] HYDROXYCHLOROQUINE [facility] IN[facility]IXIMAB [facility] LISINOPRIL [facility] MORPHINE [facility] PROCHLORPERAZINE [facility] VANCOMYCIN [facility] BUDESONIDE-FORMOTEROL FUMARATE [facility] NO KNOWN ENVIRONMENTAL ALLERGIES [facility] TETANUS TOXOIDS [facility] sulfa [facility] NO KNOWN ALLERGIES [facility] NO ALLERGY INFORMATION AVAILABLE [facility] PENICILLINS [facility] NO KNOWN ALLERGIES [facility] LACTOSE INTOLERANCE (GI) [facility] MILK-RELATED COMPOUNDS [facility] GRAMINEAE POLLENS [facility] MORPHINE [facility] ACETAMINOPHEN [facility] PHENYTOIN [facility] PHENYTOIN SODIUM EXTENDED [facility] CARBAMAZEPINE [facility] CEPHALEXIN [facility] AMOXICILLIN [facility] LAMOTRIGINE [facility] METHADONE [facility] TIZANIDINE [facility] OXCARBAZEPINE [facility] DONEPEZIL [facility] ATORVASTATIN [facility] BEE VENOM PROTEIN (HONEY BEE) [facility] QUETIAPINE [facility] LEVETIRACETAM [facility] AMOXICILLIN-POT CLAVULANATE [facility] HYDROCODONE-ACETAMINOPHEN [facility] erythromycin base [facility] ADHESIVE \T\ TAPE [facility] AMOXICILLIN [facility] ARIPIPRAZOLE [facility] ATORVASTATIN [facility] BUSPIRONE [facility] [facility] CODEINE SULFATE [facility] CODEINE [facility] DIAZEPAM [facility] DIVALPROEX SODIUM [facility] HEPARIN [facility] HYDROCODONE [facility] IBUPROFEN [facility] LISINOPRIL [facility] METRONIDAZOLE [facility] MIDAZOLAM [facility] MORPHINE [facility] MOXIFLOXACIN [facility] NAPROXEN [facility] OXCARBAZEPINE [facility] OXYCODONE [facility] PRAVASTATIN [facility] PROCHLORPERAZINE [facility] SIMVASTATIN [facility] VALPROIC ACID [facility] VENLAFAXINE [facility] WARFARIN [facility] LIPITOR [facility] NO KNOWN ALLERGIES [facility] BENZODIAZEPINES [facility] NO KNOWN ENVIRONMENTAL ALLERGIES [facility] [place] PENICILLINS [facility] SULFA ANTIBIOTICS [facility] asprin [facility] myopathy [facility] OTHER [facility] No Known Allergies [facility] ALCOHOL [facility] AMOXICILLIN [facility] CEFAZOLIN [facility] CEPHALEXIN [facility] CODEINE [facility] ER[facility]ROMYCIN [facility] ETHYL [facility]CO[facility]OL [facility] FENOFIBRATE NANOCRYSTALLIZED [facility] FENOFIBRATE [facility] IBUPROFEN [facility] LATEX [facility] LITHIUM [facility] LOVASTATIN [facility] METFORMIN [facility] NIFEDIPINE [facility] OXYCODONE [facility] SULFA (SULFONAMIDE ANTIBIOTICS) [facility] SULFAMETHOXAZOLE [facility] SULFAMETHOXAZOLE-TRIMETHOPRIM [facility] TRIMETHOPRIM [facility] VERAPAMIL [facility] NO KNOWN ALLERGIES [facility] NO ALLERGY INFORMATION AVAILABLE [facility] HYDRALAZINE ANALOGUES [facility] AFSHIN INHIBITORS [facility] PENICILLINS [facility] SULFA (SULFONAMIDE ANTIBIOTICS) [facility] [place] NO KNOWN ALLERGIES [facility] LATEX, NATURAL RUBBER [facility] IODINE [facility] LATEX [facility] FOOD [facility] SHELLFISH [facility] PROCHLORPERAZINE [facility] BUPROPION HCL [facility] CODEINE [facility] ASPIRIN [facility] ACETAMINOPHEN [facility] PHENYTOIN [facility] PHENYTOIN [facility] CARBAMAZEPINE [facility] METOCLOPRAMIDE HCL [facility] JUNIPER TAR [facility] PREDNISONE [facility] METOLAZONE [facility] IBUPROFEN [facility] NAPROXEN SODIUM [facility] SULINDAC [facility] CEPHALEXIN [facility] DOXYCYCLINE [facility] CLINDAMYCIN [facility] CIPROFLOXACIN [facility] METRONIDAZOLE [facility] POLLEN EXTRACTS [facility] HOUSE DUST [facility] SELEGILINE HCL [facility] METOPROLOL [facility] AMOXICILLIN [facility] LAMOTRIGINE [facility] SUMATRIPTAN [facility] SUMATRIPTAN SUCCINATE [facility] TRAMADOL [facility] BUDESONIDE [facility] VENLAFAXINE [facility] CLONIDINE [facility] DILTIAZEM [facility] AMITRIPTYLINE [facility] FLUOXETINE [facility] HYDROMORPHONE [facility] METOCLOPRAMIDE [facility] KETOROLAC [facility] PENICILLIN G [facility] CITALOPRAM [facility] TOPIRAMATE [facility] OXCARBAZEPINE [facility] LISINOPRIL [facility] QUETIAPINE [facility] MONTELUKAST [facility] LEVETIRACETAM [facility] MILNACIPRAN [facility] IODINE [facility] LATEX [facility] ARIPIPRAZOLE [facility] AMOXICILLIN-POT CLAVULANATE [facility] HYDROCODONE-ACETAMINOPHEN [facility] SULFAMETHOXAZOLE-TRIMETHOPRIM [facility] EMOLLIENT [facility] NAPROXEN-PSEUDOEPHEDRINE [facility] DIVALPROEX [facility] statins [facility] Neurontin [facility] morphine [facility] erythromycin base [facility] Medications date description facility 2020-04-20 00:00:00 null [facility] 2020-04-20 00:00:00 null [facility] 2020-04-20 00:00:00 CIPROFLOXACIN HCL [facility] 2020-04-20 00:00:00 CIPROFLOXACIN HCL [facility] 2020-05-07 00:00:00 null [facility] 2020-06-01 00:00:00 null [facility] 2020-06-01 00:00:00 null [facility] 2020-06-01 00:00:00 null [facility] 2020-06-01 00:00:00 null [facility] 2020-06-01 00:00:00 null [facility] 2020-06-01 00:00:00 null [facility] 2020-06-01 00:00:00 null [facility] 2020-06-01 00:00:00 null [facility] 2020-06-01 00:00:00 null [facility] 2020-06-01 00:00:00 null [facility] 2020-06-01 00:00:00 ESTROGENS, CONJUGATED [facility] [place] 2020-06-01 00:00:00 LOSARTAN POTASSIUM [facility] 2020-06-01 00:00:00 CARVEDILOL [facility] 2020-06-01 00:00:00 SPIRONOLACTONE [facility] 2020-06-01 00:00:00 METFORMIN HCL [facility] 2020-06-01 00:00:00 CARVEDILOL [facility] 2020-06-01 00:00:00 SPIRONOLACTONE [facility] 2020-06-01 00:00:00 ESTROGENS, CONJUGATED [facility] [place] 2020-06-01 00:00:00 METFORMIN HCL [facility] 2020-06-01 00:00:00 LOSARTAN POTASSIUM [facility] 2020-06-07 00:00:00 null [facility] 2020-06-07 00:00:00 null [facility] 2020-06-07 00:00:00 null [facility] 2020-06-07 00:00:00 null [facility] 2020-06-07 00:00:00 ESTROGENS, CONJUGATED [facility] 2020-06-07 00:00:00 ESTRADIOL [facility] 2020-06-07 00:00:00 ESTROGENS, CONJUGATED [facility] [place] 2020-06-07 00:00:00 ESTRADIOL [facility] Procedures date description facility 2020-04-12 00:00:00 [facility]inal[facility] with [facility]scopic [facility] date description facility 2020-04-12 00:00:00 [facility] date description facility 2020-04-20 00:00:00 COMPREHENSIVE METABOLIC PANEL [facility] [place] [facility] date description facility 2020-04-20 00:00:00 HGBA1C [facility] [place] [facility] date description facility 2020-04-20 00:00:00 Magnesium (Mg) [facility] [place] [facility] date description facility 2020-04-20 00:00:00 [facility] [place] [facility] date description facility 2020-04-22 00:00:00 [facility] [place] [facility] date description facility 2020-04-22 00:00:00 [facility] [place] [facility] Results Social History date description facility 2020-06-01 00:00:00 Former smoker [facility] [place] Social History date description facility 2020-06-01 00:00:00 Former smoker [facility] [place] [facility] date description facility [phone]
== END 2020-06-19 15:03 | disposition home or self-care (01) ==
LOC: DI 15:02
PROVIDERS: ATTEND Nurse Practitioner
DX: D17.24 Benign lipomatous neoplasm of skin and subcutaneous tissue of left leg (principal)

== ENCOUNTER 2020-06-30 15:35 | Emergency (ER) | payer MEDICARE, OTHER ==
[2020-06-30 16:21] LABS: BASOPHILS % (AUTO) 0.4 %; EOSINOPHILS # (AUTO) 0.2 10^3/uL (0.0-0.7); EOSINOPHILS % (AUTO) 2.1 %; HGB - HEMOGLOBIN 12.6 g/dL (12.0-16.0); LYMPHOCYTES # (AUTO) 1.5 10^3/uL (1.5-3.5); LYMPHOCYTES % (AUTO) 17.8 %; MEAN CORPUSCULAR HEMOGLOBIN 28.6 pg (27.0-31.0); MEAN CORPUSCULAR HGB CONC 32.1 g/dL (32.0-36.0); MEAN CORPUSCULAR VOLUME 89.3 fL (81.0-99.0); MEAN PLATELET VOLUME 9.3 fL (7.9-10.8); MONOCYTES # (AUTO) 0.5 10^3/uL (0.0-1.0); NEUTROPHILS # (AUTO) 6.2 10^3/uL (1.5-6.6); NEUTROPHILS % (AUTO) 73.5 %; PLT - PLATELET COUNT 310 10^3/uL (130-450); RED CELL DISTRIBUTION WIDTH 13.2 % (12.0-15.0); WHITE BLOOD COUNT 8.5 x10^3/uL (4.8-10.8)
[2020-06-30 16:35] LABS: ALBUMIN 3.6 g/dL (3.2-5.5); ALBUMIN/GLOBULIN RATIO 0.9 (1.0-2.2); BILIRUBIN,TOTAL 0.3 mg/dL (0.2-1.0); CALCIUM 9.4 mg/dL (8.5-10.3); CREATININE 0.9 mg/dL (0.4-1.0); TOTAL PROTEIN 7.6 g/dL (6.7-8.2)
[2020-06-30 17:13] LABS: BILIRUBIN,URINE NEGATIVE (NEGATIVE); GLUCOSE, URINE (UA) NEGATIVE (NEGATIVE); KETONES,URINE (UA) NEGATIVE (NEGATIVE); LEUKOCYTE ESTERASE, URINE MODERATE (NEGATIVE); NITRITE,URINE NEGATIVE (NEGATIVE); OCCULT BLOOD,URINE MODERATE (NEGATIVE); PH,URINE 5.5 PH (5.0-7.5); PROTEIN,URINE 100 mg/dL (NEGATIVE); UROBILINOGEN,URINE 0.2 (NORMAL) E.U./dL (NORMAL)
[2020-06-30 17:14] LABS: CLARITY,URINE CLEAR (CLEAR)
[2020-06-30 17:22] LABS: BACTERIA,URINE Many /HPF (None Seen); SQUAMOUS EPITHELIAL CELL,UR FEW Squamous (<= Few); WBC CLUMPS,URINE PRESENT
--- NOTE | 2020-06-30 20:02 | ED Physician Documentation ---
PD HPI ABD PAIN - Stated complaint Stated Complaint: RLQ ABD PX - Chief complaint Chief Complaint: Abd Pain - History obtained from History obtained from: Patient - History of Present Illness Timing - onset: How many weeks ago (1) Timing - duration: Weeks (1) Timing - details: Gradual onset, Intermittant Pain level max: 6 Pain level now: 2 Quality: Pain Location: RLQ Radiation: Other (right lower back), Right flank Improved by: Other (nothing) Worsened by: Other (no exacerbating factors) Associated symptoms: Diarrhea. No: Fever, Nausea, Vomiting, Constipation, Melena, Hematochezia Similar symptoms before: Has not had sx before Recently seen: Clinic - Additional information Additional information: c/o 1 week of intermittent/episodic RLQ abdominal pain that radiates to right lower back associated with diarrhea. went to a walk-in clinic earlier today for this and was advised to come to ED. denies h/o similar symptoms Review of Systems Constitutional: denies: Fever, Chills, Sweats Cardiac: reports: Reviewed and negative Respiratory: reports: Reviewed and negative GI: reports: Abdominal Pain, Diarrhea. 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 : Incontinence HEENT: None Psych: None Musculoskeletal: Osteoporosis Derm: Other drug resistant infections - Past Surgical History Past Surgical History: Yes General: Colonoscopy /PAIRING MACHINE OPERATOR: Tubal ligation, Other HEENT: Cataracts - Present Medications Home Medications: Ambulatory Orders Medication Instructions Recorded Confirmed Losartan [Cozaar] 100 mg PO DAILY 09/01/13 06/30/20 Metformin HCl 500 mg PO BID 09/01/13 06/30/20 Omeprazole [Prilosec] 20 mg PO DAILY 09/01/13 05/27/20 Aspirin [Aspir 81] 81 mg PO DAILY 09/02/13 05/26/20 Carvedilol [Coreg] 50 mg PO BID 04/14/20 06/30/20 Amox/Clav 875/125 [Augmentin] 1 each PO Q12H #19 tablet 06/30/20 Ketorolac 0.45% Ophth Drops 06/30/20 06/30/20 [Acuvail] - Allergies Allergies/Adverse Reactions: Allergies Allergy/AdvReac Type Severity Reaction Status Date / Time erythromycin base Allergy Intermediate Rash Verified 06/30/20 15:57 [Erythromycin Base] - Social History Does the pt smoke?: No Smoking Status: Former smoker (Quit 50 years ago) PD ED PE NORMAL - Vitals Vital signs reviewed: Yes - General General: Alert and oriented X 3, No acute distress, Well developed/nourished - Cardiac Cardiac: RRR, No murmur - Respiratory Respiratory: No respiratory distress, Clear bilaterally - Abdomen Abdomen: Soft, Non distended, Other (minimal RLQ tenderness without rebound or guarding) - Back Back: No CVA TTP - Derm Derm: Normal color, Warm and dry, No rash - Extremities Extremities: No edema Results - Vitals Vitals: Vital Signs - 24 hr 06/30/20 06/30/20 06/30/20 15:57 19:33 21:00 Temperature 36.5 C 36.7 C 36.6 C Heart Rate 62 60 54 L Respiratory 18 18 20 Rate Blood Pressure 201/56 H 204/65 H 191/56 H O2 Saturation 98 100 100 06/30/20 23:00 Temperature 36.7 C Heart Rate 53 L Respiratory 16 Rate Blood Pressure 189/62 H O2 Saturation 100 Oxygen O2 Source Room air - Labs Labs: Laboratory Tests 06/30/20 06/30/20 06/30/20 16:16 16:16 17:05 WBC 8.5 RBC 4.40 Hgb 12.6 Hct 39.3 MCV 89.3 MCH 28.6 MCHC 32.1 RDW 13.2 Plt Count 310 MPV 9.3 Neut # (Auto) 6.2 Lymph # (Auto) 1.5 [place] # (Auto) 0.5 Eos # (Auto) 0.2 Baso # (Auto) 0.0 Absolute Nucleated RBC 0.00 Nucleated RBC % 0.0 Sodium 134 L Potassium 4.4 Chloride 102 Carbon Dioxide 23 Anion Gap 9.0 BUN 26 H Creatinine 0.9 Estimated GFR (MDRD) 60 L Glucose 162 H Calcium 9.4 Total Bilirubin 0.3 AST 18 ALT 16 Alkaline Phosphatase 146 H Total Protein 7.6 Albumin 3.6 Globulin 4.0 Albumin/Globulin Ratio 0.9 L Lipase 36 Urine Color YELLOW Urine Clarity CLEAR Urine pH 5.5 Ur Specific [place] 1.025 Urine Protein 100 H Urine Glucose (UA) NEGATIVE Urine Ketones NEGATIVE Urine Occult Blood MODERATE H Urine Nitrite NEGATIVE Urine Bilirubin NEGATIVE Urine Urobilinogen 0.2 (NORMAL) Ur Leukocyte Esterase MODERATE H Urine RBC 6-10 H Urine WBC 11-25 H Urine WBC Clumps PRESENT Ur Squamous Epith Cells FEW Squamous Urine Bacteria Many H Ur Microscopic Review INDICATED Urine Culture Comments INDICATED - Rads (name of study) CT A/P with IV contrast Radiology: Prelim report reviewed, See rad report PD MEDICAL DECISION MAKING - ED course Complexity details: reviewed results, re-evaluated patient, considered differential, d/w patient Departure - Departure Disposition: 01 Home, Self Care Clinical Impression: Diverticulitis of gastrointestinal tract Condition: Good Instructions: ED Diverticulitis Follow-Up: Erin Hodges ARNP, SPLICING TECHNICIAN-C [Primary Care Provider] - (3-4 days) Prescriptions: Amox/Clav 875/125 [Augmentin] 1 each PO Q12H #19 tablet Discharge Date/Time: 07/01/20 00:06
[2020-06-30] MEDS ORDERED: SODIUM CHLORIDE 0.9% 500 ML IV STA (20:15)
[2020-06-30] MEDS ORDERED: IOVERSOL 320 100 ML VIAL IVP ONE (20:34)
--- NOTE | 2020-06-30 21:14 | CT Report ---
PROCEDURE: Abdomen/Pelvis W INDICATIONS: RLQ pain CONTRAST: IV CONTRAST: Optiray 320 ml: 100 PO CONTRAST: *NO PO CONTRAST TECHNIQUE: After the administration of weight appropriate dose of intravenous contrast, 5 mm thick sections acqu ired from the diaphragms to the symphysis. 5 mm thick coronal and sagittal reformats were acquired. For radiation dose reduction, the following was used: automated exposure control, adjustment of mA and/or kV according to patient size. COMPARISON: None. FINDINGS: Image quality: Excellent. ABDOMEN: Lung bases: 6 mm right lung base nodule. Lung bases are otherwise clear. Heart size is normal. Solid organs: Liver and spleen are normal in size and enhancement. Coarse, punctate hepatic calcifi cations likely sequela of prior granulomatous disease. Similar findings are seen in the spleen. Gallb ladder is unremarkable. Biliary system is non dilated. Pancreas enhances normally. No adrenal nodu les. Kidneys demonstrate normal size and enhancement, without hydronephrosis. Bilateral renal hypod ensities are too small to accurately characterize and likely represent renal cysts. Peritoneum and bowel: Bowel loops demonstrate normal wall thickness and caliber. No free fluid or a ir. Scattered colonic diverticulosis with mild peridiverticular inflammatory stranding involving the proximal to mid portion of the sigmoid colon. No evidence for perforation or abscess formation. No estrada spicious mass lesions or asymmetric wall thickening. Nodes and vessels: No retroperitoneal or mesenteric adenopathy by size criteria. Aorta and inferior vena cava are normal in size. Possible 7 mm pseudoaneurysm involving the distal segment of a hilar branch of the right renal artery. Miscellaneous: No ventral hernias. PELVIS: Genitourinary: Bladder wall thickness is normal. Miscellaneous: No inguinal hernias or adenopathy. Bones: No suspicious bony lesions. No acute vertebral body compression fractures. Grade 1 anteroli sthesis of L5 on S1 secondary to bilateral L5 pars defects. IMPRESSION: 1. Acute diverticulitis involving the proximal and mid sigmoid colon. No evidence for perforation or abscess formation. 2. 6 mm right basilar pulmonary nodule. Recommend follow-up low-dose CT in 6-[address] ability. 3. Possible 7 mm pseudoaneurysm involving the distal segment of a hilar branch of the right renal art don. 4. Grade 1 anterolisthesis of L5 on S1 secondary to bilateral L5 pars defects. 5. Bilateral renal hypodensities incompletely characterized but likely representing small renal cysts . Reviewed by: Holden Langston MD on 06/30/2020 9:13 PM PST Approved by: Holden Langston MD on 06/30/2020 9:13 PM PST Station ID: [id number]
[2020-06-30] MEDS ORDERED: AMOX/CLAV 875 MG/125 MG TABLET PO STA (23:25)
[2020-07-01 00:05] VITALS: BP 189/62
== END 2020-07-01 00:06 | disposition home or self-care (01) ==
LOC: ED 15:35
DX: K57.32 Diverticulitis of large intestine without perforation or abscess without bleeding (principal); R91.1 Solitary pulmonary nodule; I10 Essential (primary) hypertension; E11.9 Type 2 diabetes mellitus without complications; Z79.84 Long term (current) use of oral hypoglycemic drugs; Z79.82 Long term (current) use of aspirin; Z87.891 Personal history of nicotine dependence
CPT/HCPCS: 36415; 74177; 80053; 81001; 83690; 85025; 87086; 87181; 99284; A9270; Q9967; 81003

== ENCOUNTER 2020-07-27 08:48 | Outpatient (CLI) | payer MEDICARE, OTHER ==
[2020-07-27 09:08] LABS: BASOPHILS % (AUTO) 0.5 %; EOSINOPHILS # (AUTO) 0.2 10^3/uL (0.0-0.7); EOSINOPHILS % (AUTO) 2.6 %; HGB - HEMOGLOBIN 12.2 g/dL (12.0-16.0); LYMPHOCYTES # (AUTO) 1.5 10^3/uL (1.5-3.5); LYMPHOCYTES % (AUTO) 17.3 %; MEAN CORPUSCULAR HGB CONC 32.1 g/dL (32.0-36.0); MEAN CORPUSCULAR VOLUME 90.3 fL (81.0-99.0); MEAN PLATELET VOLUME 9.7 fL (7.9-10.8); MONOCYTES # (AUTO) 0.5 10^3/uL (0.0-1.0); MONOCYTES % (AUTO) 6.4 %; NEUTROPHILS # (AUTO) 6.2 10^3/uL (1.5-6.6); NEUTROPHILS % (AUTO) 72.7 %; PLT - PLATELET COUNT 253 10^3/uL (130-450); RED BLOOD COUNT 4.21 10^6/uL (4.20-5.40); RED CELL DISTRIBUTION WIDTH 13.2 % (12.0-15.0); WHITE BLOOD COUNT 8.5 x10^3/uL (4.8-10.8)
[2020-07-27 11:33] LABS: HEMOGLOBIN A1c% 7.1 % (4.27-6.07)
== END 2020-07-27 08:49 | disposition home or self-care (01) ==
LOC: LAB 08:48
PROVIDERS: ATTEND Orthopaedic Surgery
DX: Z01.818 Encounter for other preprocedural examination (principal); R73.9 Hyperglycemia, unspecified; N39.0 Urinary tract infection, site not specified
CPT/HCPCS: 36415; 80048; 81001; 81003; 83036; 85025; 87086; 93005

== ENCOUNTER 2020-08-06 11:01 | Outpatient (CLI) | payer MEDICARE, OTHER ==
[2020-08-06 11:20] LABS: BILIRUBIN,URINE NEGATIVE (NEGATIVE); GLUCOSE, URINE (UA) NEGATIVE (NEGATIVE); KETONES,URINE (UA) NEGATIVE (NEGATIVE); LEUKOCYTE ESTERASE, URINE NEGATIVE (NEGATIVE); NITRITE,URINE NEGATIVE (NEGATIVE); OCCULT BLOOD,URINE TRACE-INTA (NEGATIVE); PH,URINE 7.5 PH (5.0-7.5); PROTEIN,URINE TRACE mg/dL (NEGATIVE); UROBILINOGEN,URINE 0.2 (NORMAL) E.U./dL (NORMAL)
[2020-08-06 11:21] LABS: CLARITY,URINE CLEAR (CLEAR)
== END 2020-08-06 11:02 | disposition home or self-care (01) ==
LOC: LAB 11:01
PROVIDERS: ATTEND Nurse Practitioner
DX: N30.90 Cystitis, unspecified without hematuria (principal)
CPT/HCPCS: 81001; 81003; 87086

== ENCOUNTER 2020-09-30 10:02 | Outpatient (CLI) | payer MEDICARE, OTHER ==
--- NOTE | 2020-09-30 10:36 | SLEEP CARE CONSULTATION ---
Information from patient questionnaire entered by Josefina Ramsay. I have reviewed and concur with the information entered by Josefina Ramsay. This document represents the service I personally performed and the decisions made by , Mellisa Edmond ARNP. History of Present Illness Service Date and Time: 09/30/2020 1002 Previous diagnosis: Moderate, Obstructive Sleep Apnea-Hypopnea Syndrome AHI: 28.3 (in 2015) Reason for follow up: annual (last seen 09/2019) Equipment type: CPAP Equipment obtained from: [facility] (getting supplies as needed) Mask style: Nasal (Wisp type mask) Backup mask available: Yes (old mask) Last cushion change: less than a week ago Prior sleep studies: Yes Year and Where: 2015 - [facility]; 2004 - [facility] Type of Sleep Study: Polysomnography HPI additional information: ASHA BRAMBILA was diagnosed to have moderate, AHI 28.3, obstructive sleep apnea-hypopnea syndrome and returned today for CPAP therapy annual follow-up. CPAP Compliance Data - Data Reviewed with Patient Average duration of nightly device use: 7 hr 15 min Compliance rate %: 98.3 (180 days) Current pressure setting (cmH2O): 9 Humidity settin Heated hose settin Average residual AHI: 0.8 Average large leak: 6 min 57 sec Subjective Patient concerns: denies: aerophagia, mask discomfort, air blowing in eyes, mask leak noise, condensation in mask/hose, nasal congestion, dry mouth, nose, throat, epistaxis, other Observed to snore while using device: No Current pressure setting perceived as: comfortable On therapy, patient: reports: sleeping better, awakening more refreshed, being more awake and alert during the day, more rested overall. denies: drowsiness while driving Initial Holt Sleepiness Scale score: 4 (in 2010) Current Holt Sleepiness Scale score: 1 Allergies and Home Medications Home medication list reviewed: Yes Allergy and home medication list: Metformin Losartan Carvedilol Spironolactone Omeprazole low dose aspirin Liquid turmeric Dual chamber turmeric Gummy vitamins Review of Systems Review of systems same as previous: No (L knee replacement 5 wks ago; cataract surgery) Physical Exam Heart Rate: 72 O2 Saturation: 98 Height: 5 ft 6 in Weight: 221 lb Body Mass Index: 35.6 BMI Classification: Obese Impression and Plan 1. Obstructive Sleep Apnea-Hypopnea Syndrome, moderate, with good treatment compliance and good apnea control. On CPAP therapy, the patient has better sleep quality and is more rested overall. She has significant improvement of her sleep apnea and is satisfied with her treatment. She has complaints of skin irritation, aerophagia, mask discomfort, air leak noise or oral dryness today. Patient's apnea severity and rationale for treatment to reduce apnea, improve sleep quality and reduce cardiovascular and cerebrovascular events was reviewed. I also reviewed the benefit of consistent device use of CPAP for hypertension and diabetes. * Continue auto CPAP pressure at 8 cmH2O * Notify me if snoring with mask or feeling that the pressure is too much or too little * Attempt to lose weight * Call this office if any problems using CPAP * Return for follow up in 1 year, or sooner if concerns arise Counseling Topics: Spare mask, Weight loss health impact Visit Type: In Office Time Spent with Patient (minutes): 13 Provider Statement: I spent 100% of the Face to Face Visit with the patient with greater than 50% spent counseling the patient and coordination of care.
== END 2020-09-30 10:03 | disposition home or self-care (01) ==
LOC: SC 10:02
PROVIDERS: ATTEND Nurse Practitioner Family
DX: G47.33 Obstructive sleep apnea (adult) (pediatric) (principal); E66.9 Obesity, unspecified; Z68.35 Body mass index [BMI] 35.0-35.9, adult
CPT/HCPCS: 99212; G0463

== ENCOUNTER 2020-10-05 15:41 | Outpatient (CLI) | payer MEDICARE, OTHER | END 2020-10-05 15:42 | disposition home or self-care (01) | LOC: LAB 15:41 | PROVIDERS: ATTEND Nurse Practitioner Family | DX: N30.90 Cystitis, unspecified without hematuria (principal) | CPT/HCPCS: 81001; 87086 ==

== ENCOUNTER 2020-10-06 11:37 | Outpatient (CLI) | payer MEDICARE, OTHER ==
[2020-10-06 15:02] LABS: BILIRUBIN,URINE NEGATIVE (NEGATIVE); GLUCOSE, URINE (UA) NEGATIVE (NEGATIVE); KETONES,URINE (UA) NEGATIVE (NEGATIVE); LEUKOCYTE ESTERASE, URINE SMALL (NEGATIVE); NITRITE,URINE POSITIVE (NEGATIVE); OCCULT BLOOD,URINE SMALL (NEGATIVE); PROTEIN,URINE 100 mg/dL (NEGATIVE); UROBILINOGEN,URINE 0.2 (NORMAL) E.U./dL (NORMAL)
[2020-10-06 15:03] LABS: BACTERIA,URINE Many /HPF (None Seen); CLARITY,URINE SL. CLOUDY (CLEAR); SQUAMOUS EPITHELIAL CELL,UR FEW Squamous (<= Few); WBC,URINE >25 /HPF (0-5)
== END 2020-10-06 11:38 | disposition home or self-care (01) ==
LOC: LAB.S 11:37
PROVIDERS: ATTEND Nurse Practitioner
DX: E11.9 Type 2 diabetes mellitus without complications (principal); N30.90 Cystitis, unspecified without hematuria
CPT/HCPCS: 81001; 87086; 87181

== ENCOUNTER 2021-01-03 13:49 | Outpatient (CLI) | payer MEDICARE, OTHER ==
[2021-01-03 14:08] LABS: BASOPHILS % (AUTO) 0.3 %; EOSINOPHILS # (AUTO) 0.2 10^3/uL (0.0-0.7); EOSINOPHILS % (AUTO) 2.1 %; HCT - HEMATOCRIT 36.3 % (37.0-47.0); HGB - HEMOGLOBIN 11.7 g/dL (12.0-16.0); LYMPHOCYTES % (AUTO) 21.8 %; MEAN CORPUSCULAR HEMOGLOBIN 29.1 pg (27.0-31.0); MEAN CORPUSCULAR HGB CONC 32.2 g/dL (32.0-36.0); MEAN CORPUSCULAR VOLUME 90.3 fL (81.0-99.0); MEAN PLATELET VOLUME 9.4 fL (7.9-10.8); MONOCYTES # (AUTO) 0.4 10^3/uL (0.0-1.0); MONOCYTES % (AUTO) 4.5 %; NEUTROPHILS # (AUTO) 6.3 10^3/uL (1.5-6.6); NEUTROPHILS % (AUTO) 71.1 %; PLT - PLATELET COUNT 266 10^3/uL (130-450); RED BLOOD COUNT 4.02 10^6/uL (4.20-5.40); RED CELL DISTRIBUTION WIDTH 13.3 % (12.0-15.0); WHITE BLOOD COUNT 8.9 x10^3/uL (4.8-10.8)
[2021-01-03 14:19] LABS: ALBUMIN 3.9 g/dL (3.2-5.5); ALBUMIN/GLOBULIN RATIO 1.1 (1.0-2.2); BILIRUBIN,TOTAL 0.4 mg/dL (0.2-1.0); CALCIUM 9.6 mg/dL (8.5-10.3); CREATININE 1.1 mg/dL (0.4-1.0); MAGNESIUM 1.6 mg/dL (1.7-2.8); POTASSIUM 4.5 mmol/L (3.5-5.0); TOTAL PROTEIN 7.3 g/dL (6.7-8.2)
[2021-01-03 14:20] LABS: CREATININE,URINE 53.4 mg/dL; MICROALBUM/CREATININE RATIO,UR 269.7 ug/mg (<30.0); MICROALBUMIN,URINE 14.4 mg/dL (0-300.0)
[2021-01-03 20:48] LABS: ESTIMATED AVERAGE GLUCOSE 157 mg/dL (70-100); HEMOGLOBIN A1c% 7.1 % (4.27-6.07)
== END 2021-01-03 13:50 | disposition home or self-care (01) ==
LOC: LAB 13:49
PROVIDERS: ATTEND Nurse Practitioner
DX: I10 Essential (primary) hypertension (principal); E11.9 Type 2 diabetes mellitus without complications; E83.42 Hypomagnesemia; R82.81 Pyuria
CPT/HCPCS: 36415; 80053; 82043; 82570; 83036; 83735; 85025; 87086; 87181

== ENCOUNTER 2021-01-27 08:17 | Outpatient (CLI) | payer MEDICARE, OTHER ==
--- NOTE | 2021-01-27 10:49 | CT Report ---
PROCEDURE: CHEST WO INDICATIONS: LUNG NODULE TECHNIQUE: Noncontrast images were acquired from the pulmonary apices to the posterior costophrenic angles. Mul tiplanar MIP reformats were then acquired. For radiation dose reduction, the following was used: au tomated exposure control, adjustment of mA and/or kV according to patient size. COMPARISON: CT abdomen and pelvis 06/30/2020. FINDINGS: Image quality: Excellent. Lungs and pleura: Several small pulmonary nodules. For example: -Right upper lobe calcified granuloma. -Right minor fissure 0.5 cm, (5/150). -Right middle lobe 0.5 cm, (5/158). -Right lower lobe spiculated 0.4 cm, (5/204), unchanged. -Right lower lobe 0.6 cm, (5/248), unchanged. -Left lower lobe juxta fissural 0.6 cm, (5/144). -Left lower lobe mean diameter 0.6 cm, (5/192), unchanged. Mild interlobular septal thickening at the lung bases, unchanged. No pleural effusions or pneumothora x. Central and peripheral airways are patent and normal in caliber. Mediastinum: Heart size is normal. Minimal coronary artery calcifications. No pericardial effusion. No mediastinal adenopathy by size criteria. Thoracic aorta and central pulmonary arteries are hasmukh l in size. Esophagus is normal in caliber. Small hiatal hernia. Bones and chest wall: No suspicious bony lesions. No vertebral body compression fractures. Mild deg enerative change in the upper thoracic spine. No axillary or supraclavicular adenopathy by size crite danilo. The thyroid is normal in size and there are no incidental findings. Abdomen: Calcified granuloma in the liver and spleen. No adrenal nodule. 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 Duodenal diverticulum. IMPRESSION: 1. Several small pulmonary nodules measuring up to 0.6 cm. The previously seen nodules are unchanged. -Recommend follow-up CT chest in 12 months. 2. Evidence of prior granulomatous process. Reviewed by: Lm Person MD on 01/27/2021 10:48 AM PDT Approved by: Lm Person MD on 01/27/2021 10:48 AM PDT Station ID: [id number]
== END 2021-01-27 08:18 | disposition home or self-care (01) ==
LOC: DI 08:17
PROVIDERS: ATTEND Nurse Practitioner
DX: R91.8 Other nonspecific abnormal finding of lung field (principal); Z87.09 Personal history of other diseases of the respiratory system

== ENCOUNTER 2021-03-31 09:54 | Outpatient (CLI) | payer MEDICARE, OTHER ==
[2021-03-31 15:26] LABS: BASOPHILS % (AUTO) 0.6 %; EOSINOPHILS # (AUTO) 0.2 10^3/uL (0.0-0.7); EOSINOPHILS % (AUTO) 2.9 %; HCT - HEMATOCRIT 37.3 % (37.0-47.0); LYMPHOCYTES # (AUTO) 1.6 10^3/uL (1.5-3.5); LYMPHOCYTES % (AUTO) 21.7 %; MEAN CORPUSCULAR HEMOGLOBIN 29.9 pg (27.0-31.0); MEAN CORPUSCULAR HGB CONC 32.2 g/dL (32.0-36.0); MEAN CORPUSCULAR VOLUME 92.8 fL (81.0-99.0); MEAN PLATELET VOLUME 10.1 fL (7.9-10.8); MONOCYTES # (AUTO) 0.4 10^3/uL (0.0-1.0); NEUTROPHILS # (AUTO) 4.9 10^3/uL (1.5-6.6); NEUTROPHILS % (AUTO) 68.4 %; PLT - PLATELET COUNT 265 10^3/uL (130-450); RED BLOOD COUNT 4.02 10^6/uL (4.20-5.40); RED CELL DISTRIBUTION WIDTH 13.5 % (12.0-15.0); WHITE BLOOD COUNT 7.1 x10^3/uL (4.8-10.8)
[2021-03-31 15:56] LABS: ALBUMIN 3.8 g/dL (3.2-5.5); ALBUMIN/GLOBULIN RATIO 1.1 (1.0-2.2); BILIRUBIN,TOTAL 0.3 mg/dL (0.2-1.0); CALCIUM 9.8 mg/dL (8.5-10.3); CREATININE 1.2 mg/dL (0.4-1.0); MAGNESIUM 1.7 mg/dL (1.7-2.8); TOTAL PROTEIN 7.2 g/dL (6.7-8.2)
[2021-03-31 19:33] LABS: ESTIMATED AVERAGE GLUCOSE 157 mg/dL (70-100); HEMOGLOBIN A1c% 7.1 % (4.27-6.07)
== END 2021-03-31 09:55 | disposition home or self-care (01) ==
LOC: LAB.S 09:54
PROVIDERS: ATTEND Nurse Practitioner
DX: E11.9 Type 2 diabetes mellitus without complications (principal); E83.42 Hypomagnesemia; M25.562 Pain in left knee
CPT/HCPCS: 36415; 80053; 83036; 83735; 85025

== ENCOUNTER 2021-04-07 11:12 | Outpatient (CLI) | payer MEDICARE, OTHER ==
--- NOTE | 2021-04-14 02:21 | XRAY Report ---
PROCEDURE: Knee 4 View LT INDICATIONS: LEFT KNEE PAIN TECHNIQUE: 4 views of the left knee(s) were acquired. Images became available for interpretation on 03/30/2021 COMPARISON: X-ray knee 07/06/2014 FINDINGS: Bones: No fractures or dislocations. No suspicious bony lesions. Left knee arthroplasty is present . Hardware is intact without evidence of hardware fracture or periprosthetic lucency to suggest loose enrique. Right knee demonstrates moderate to severe lateral and moderate medial compartment narrowing. R ight knee chondrocalcinosis is present. Periarticular osteophytes are present. No erosions are presen t. Soft tissues: No joint effusion. No suspicious soft tissue calcifications. IMPRESSION: 1. Left knee arthroplasty. 2. 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 Reviewed by: Chastity Hernandez MD on 04/14/2021 12:50 AM PDT Approved by: Chastity Hernandez MD on 04/14/2021 12:50 AM PDT Station ID: [id number]
== END 2021-04-07 11:13 | disposition home or self-care (01) ==
LOC: DI.N 11:12
PROVIDERS: ATTEND Physician Assistant
DX: M25.562 Pain in left knee (principal); Z96.652 Presence of left artificial knee joint; M17.11 Unilateral primary osteoarthritis, right knee

== ENCOUNTER 2021-05-09 10:52 | Outpatient (CLI) | payer MEDICARE, OTHER ==
[2021-05-09] MEDS ORDERED: IOVERSOL 320 100 ML VIAL IVP ONE ×2 (11:16→11:59)
[2021-05-09 11:29] LABS: CREATININE 1.1 mg/dL (0.4-1.0)
--- NOTE | 2021-05-09 13:00 | CT Report ---
PROCEDURE: LOWER EXTREMITY W - LT INDICATIONS: LEFT KNEE PAIN, SOFT TISSUE MASS TECHNIQUE: Noncontrast 3 mm axial sections acquired from the mid-patella to the proximal tibia, with coronal and sagittal reformats. COMPARISON: Reference is made to the lower extremity ultrasound dated June 19, 2020 and left knee radiograph dated March 31, 2021. FINDINGS: Image quality: Beam hardening artifact from the patient's knee arthroplasty. Bones: No acute, displaced fracture. Tricompartment arthroplasty without evidence of hardware compar tments. Soft tissues: Small to moderate joint effusion with evidence of synovitis. No discrete soft tissue mass is appreciated. IMPRESSION: 1. Small to moderate joint effusion with evidence of synovitis. Reviewed by: Tunde Mustafa MD on 05/09/2021 12:59 PM PST Approved by: Tunde Mustafa MD on 05/09/2021 12:59 PM PST Station ID: [id number]
== END 2021-05-09 10:53 | disposition home or self-care (01) ==
LOC: DI 10:52
PROVIDERS: ATTEND Nurse Practitioner
DX: M65.9 Synovitis and tenosynovitis, unspecified (principal); M25.462 Effusion, left knee
CPT/HCPCS: 36415; 73701; 82565; Q9967

== ENCOUNTER 2021-07-01 08:09 | Outpatient (CLI) | payer MEDICARE, OTHER ==
[2021-07-01 15:48] LABS: BASOPHILS % (AUTO) 0.5 %; EOSINOPHILS # (AUTO) 0.2 10^3/uL (0.0-0.7); EOSINOPHILS % (AUTO) 2.8 %; HGB - HEMOGLOBIN 12.4 g/dL (12.0-16.0); LYMPHOCYTES # (AUTO) 1.6 10^3/uL (1.5-3.5); LYMPHOCYTES % (AUTO) 20.9 %; MEAN CORPUSCULAR HGB CONC 32.6 g/dL (32.0-36.0); MEAN CORPUSCULAR VOLUME 91.8 fL (81.0-99.0); MEAN PLATELET VOLUME 10.5 fL (7.9-10.8); MONOCYTES # (AUTO) 0.5 10^3/uL (0.0-1.0); MONOCYTES % (AUTO) 6.4 %; NEUTROPHILS # (AUTO) 5.2 10^3/uL (1.5-6.6); NEUTROPHILS % (AUTO) 68.9 %; PLT - PLATELET COUNT 271 10^3/uL (130-450); RED BLOOD COUNT 4.14 10^6/uL (4.20-5.40); RED CELL DISTRIBUTION WIDTH 12.7 % (12.0-15.0); WHITE BLOOD COUNT 7.6 x10^3/uL (4.8-10.8)
[2021-07-01 16:02] LABS: ALBUMIN 3.6 g/dL (3.2-5.5); ALKALINE PHOSPHATASE 125 IU/L (42-121); ALT ALANINE AMINOTRANSFERASE 21 IU/L (10-60); AST ASPARTATE AMINOTRANSFERASE 22 IU/L (10-42); BILIRUBIN,TOTAL 0.5 mg/dL (0.2-1.0); BUN - BLOOD UREA NITROGEN 29 mg/dL (6-20); CALCIUM 9.6 mg/dL (8.5-10.3); CARBON DIOXIDE - CO2 24 mmol/L (21-32); CHLORIDE 98 mmol/L (101-111); CHOL/HDL RATIO 3.7 (<4.4); CHOLESTEROL 159 mg/dL; CREATININE 1.1 mg/dL (0.4-1.0); GFR - MDRD 47 (>89); GLUCOSE 171 mg/dL (70-100); HDL CHOLESTEROL 43 mg/dL; LDL CHOLESTEROL,CALCULATED 92 mg/dL; LDL/HDL RATIO 2.1 (<4.4); POTASSIUM 4.4 mmol/L (3.5-5.0); SODIUM 131 mmol/L (135-145); TOTAL PROTEIN 7.3 g/dL (6.7-8.2); TRIGLYCERIDES 122 mg/dL; VLDL CHOLESTEROL 24 mg/dL
[2021-07-01 16:13] LABS: THYROID STIMULATING HORMONE 1.71 uIU/mL (0.34-5.60)
[2021-07-01 20:55] LABS: ESTIMATED AVERAGE GLUCOSE 166 mg/dL (70-100); HEMOGLOBIN A1c% 7.4 % (4.27-6.07)
== END 2021-07-01 08:10 | disposition home or self-care (01) ==
LOC: LAB.S 08:09
PROVIDERS: ATTEND Nurse Practitioner
DX: E11.22 Type 2 diabetes mellitus with diabetic chronic kidney disease (principal); N18.32 Chronic kidney disease, stage 3b; E78.6 Lipoprotein deficiency; Z79.899 Other long term (current) drug therapy
CPT/HCPCS: 36415; 80053; 80061; 82043; 82570; 83036; 83721; 84443; 85025

== ENCOUNTER 2021-07-02 08:00 | Outpatient (CLI) | payer MEDICARE, OTHER ==
[2021-07-02 17:09] LABS: CREATININE,URINE 70.3 mg/dL; MICROALBUM/CREATININE RATIO,UR 122.3 ug/mg (<30.0); MICROALBUMIN,URINE 8.6 mg/dL (0-300.0)
== END 2021-07-02 23:59 | disposition home or self-care (01) ==
LOC: LAB.S 08:00
PROVIDERS: ATTEND Nurse Practitioner
DX: E11.9 Type 2 diabetes mellitus without complications (principal)
CPT/HCPCS: 82043; 82570

== ENCOUNTER 2021-09-29 11:16 | Outpatient (CLI) | payer MEDICARE, OTHER ==
[2021-09-29 11:54] VITALS: BP 133/69
--- NOTE | 2021-09-29 11:54 | SLEEP CARE CONSULTATION ---
Information from patient questionnaire entered by Asad Arndt MA. I have reviewed and concur with the information entered by Asad Arndt MA. This document represents the service I personally performed and the decisions made by , Mellisa Edmond ARNP. History of Present Illness Service Date and Time: 09/29/2021 1116 Previous diagnosis: Moderate, Obstructive Sleep Apnea-Hypopnea Syndrome AHI: 28.3 (in 2015) Reason for follow up: annual (LAST SEEN 09/2020, SET UP DATE 06/2016, JUNIOR, ) Equipment type: CPAP Equipment obtained from: Other ([facility]; getting supplies as needed) Mask style: Nasal (Wisp type mask) Backup mask available: Yes (old mask) Last cushion change: 3.5-4 weeks Prior sleep studies: Yes Year and Where: 2015 - [facility]; 2004 - [facility] Type of Sleep Study: Polysomnography HPI additional information: ASHA BRAMBILA was diagnosed to have moderate, AHI 28.3, obstructive sleep apnea-hypopnea syndrome and returned today for CPAP therapy annual follow-up. Sleep Study - Results Type of Sleep Study: Polysomnography Prior sleep studies: Yes Year and Where: 2015 - [facility]; 2004 - [facility] CPAP Compliance Data - Data Reviewed with Patient Average duration of nightly device use: 6 HOURS 57 MINUTES Compliance rate %: 99.4 Current pressure setting (cmH2O): 9 Humidity settin Heated hose settin Average residual AHI: 0.5 Average large leak: 1 MIN 41 SEC Subjective Missed days of use due to: reports: other (power outage) Patient concerns: denies: aerophagia, mask discomfort, air blowing in eyes, mask leak noise, condensation in mask/hose, nasal congestion, dry mouth, nose, throat, epistaxis, other Observed to snore while using device: No Current pressure setting perceived as: comfortable On therapy, patient: reports: sleeping better, awakening more refreshed, being more awake and alert during the day, more rested overall. denies: drowsiness while driving Initial [place] Sleepiness Scale score: 4 (in 2010) Current [place] Sleepiness Scale score: 2 (2021) Allergies and Home Medications Known drug allergies: Yes (ERYTHROMYCIAN) Drug allergies reviewed: Yes Home medication list reviewed: Yes (started Glimerpiride; stopped metformin) Allergy and home medication list: Allergies erythromycin base [Erythromycin Base] Allergy (Intermediate, Verified 06/30/20 15:57) Rash Review of Systems Review of systems same as previous: No (Left knee total replacement, little over a year now) Physical Exam Vital signs obtained and entered by: Pearl ARNDT CMA AAANTONY Blood Pressure: 133/69 (RIGHT) Cuff size: wrist Heart Rate: 76 O2 Saturation: 94 (PAPER MASK) Height: 5 ft 6 in Weight: 233 lb Weight change since last visit: 11 lb gain Body Mass Index: 37.5 BMI Classification: Obese Impression and Plan 1. Obstructive Sleep Apnea-Hypopnea Syndrome, moderate, with good treatment compliance and excellent apnea control. On CPAP therapy, the patient has better sleep quality and is more rested overall. The patients CPAP is over 5 years old and of reasonable use. Thus, the CPAP will be updated. A DWO prescription will be made. Compliance guidelines for new device and follow up discussed. Patient's apnea severity and rationale for treatment to reduce apnea, improve sleep quality and reduce cardiovascular and cerebrovascular events was reviewed. I also reviewed the benefit of consistent device use of CPAP for hypertension and diabetes. 2. Obesity, unspecified. Patient has gained weight. Currently patients BMI is 37.5. Obesity increases the risk of apnea, CPAP pressure requirements and overall health risks especially cardiovascular and diabetes. Thus patient is advised to lose weight. Weight loss can be done with reducing portion size, reducing refined foods and balancing content with vegetables, fruit and whole grain foods. In addition, patient encouraged to get regular exercise. * Continue CPAP pressure at 8 cmH2O * Update machine * Update supplies * Notify me if snoring with mask or feeling that the pressure is too much or too little * Attempt to lose weight * Call this office if any problems using CPAP * Return for follow up one month after obtaining new device, or sooner if concerns arise Counseling Topics: Spare mask, Weight loss health impact Visit Type: In Office Time Spent with Patient (minutes): 22 Provider Statement: I spent 100% of the Face to Face Visit with the patient with greater than 50% spent counseling the patient and coordination of care.
== END 2021-09-29 11:17 | disposition home or self-care (01) ==
LOC: SC 11:16
PROVIDERS: ATTEND Nurse Practitioner Family
DX: G47.33 Obstructive sleep apnea (adult) (pediatric) (principal); E66.9 Obesity, unspecified; Z68.37 Body mass index [BMI] 37.0-37.9, adult
CPT/HCPCS: 99213; G0463; 99212

== ENCOUNTER 2021-10-27 09:12 | Outpatient (CLI) | payer MEDICARE, OTHER ==
[2021-10-27 14:14] LABS: CALCIUM 10.2 mg/dL (8.5-10.3); POTASSIUM 4.7 mmol/L (3.5-5.0)
[2021-10-27 14:28] LABS: ESTIMATED AVERAGE GLUCOSE 160 mg/dL (70-100); HEMOGLOBIN A1c% 7.2 % (4.27-6.07)
[2021-10-27 14:47] LABS: ALBUMIN 3.7 g/dL (3.2-5.5); ALBUMIN/GLOBULIN RATIO 1.1 (1.0-2.2); BILIRUBIN,TOTAL 0.5 mg/dL (0.2-1.0); CREATININE 1.1 mg/dL (0.4-1.0); TOTAL PROTEIN 7.2 g/dL (6.7-8.2)
== END 2021-10-27 09:13 | disposition home or self-care (01) ==
LOC: LAB.S 09:12
PROVIDERS: ATTEND Nurse Practitioner
DX: E11.9 Type 2 diabetes mellitus without complications (principal); Z51.81 Encounter for therapeutic drug level monitoring
CPT/HCPCS: 36415; 80053; 83036

== ENCOUNTER → 2022-04-10 | Outpatient (CLI) | payer MEDICARE, OTHER | LOC: MAC.MOP 10:30 | PROVIDERS: ATTEND Nurse Practitioner | DX: I44.0 Atrioventricular block, first degree (principal); I47.1 Supraventricular tachycardia; I49.1 Atrial premature depolarization; I49.3 Ventricular premature depolarization | CPT/HCPCS: 93248 ==

== ENCOUNTER 2022-05-05 09:58 | Outpatient (CLI) | payer MEDICARE, OTHER ==
[2022-05-05 21:04] LABS: ESTIMATED AVERAGE GLUCOSE 148 mg/dL (70-100); HEMOGLOBIN A1c% 6.8 % (4.27-6.07)
== END 2022-05-05 09:59 | disposition home or self-care (01) ==
LOC: LAB.S 09:58
PROVIDERS: ATTEND Nurse Practitioner
DX: E11.9 Type 2 diabetes mellitus without complications (principal); M10.9 Gout, unspecified
CPT/HCPCS: 36415; 83036; 84550

== ENCOUNTER 2022-11-14 07:41 | Outpatient (CLI) | payer MEDICARE, OTHER ==
[2022-11-14 20:39] LABS: ESTIMATED AVERAGE GLUCOSE 154 mg/dL (70-100)
[2022-11-15 00:09] LABS: CALCIUM 9.5 mg/dL (8.5-10.3); CREATININE 1.4 mg/dL (0.4-1.0)
== END 2022-11-14 07:42 | disposition home or self-care (01) ==
LOC: LAB.S 07:41
PROVIDERS: ATTEND Nurse Practitioner
DX: E11.9 Type 2 diabetes mellitus without complications (principal); M10.9 Gout, unspecified; Z51.81 Encounter for therapeutic drug level monitoring
CPT/HCPCS: 36415; 80048; 83036; 84550

== ENCOUNTER 2022-12-13 08:25 | Outpatient (CLI) | payer MEDICARE, OTHER ==
--- NOTE | 2022-12-13 08:56 | SLEEP CARE CONSULTATION ---
Information from patient questionnaire entered by Rachelle Soriano. I have reviewed and concur with the information entered by Rachelle Soriano. This document represents the service I personally performed and the decisions made by , Mellisa Edmond ARNP. History of Present Illness Service Date and Time: 12/13/2022 08 Previous diagnosis: Moderate, Obstructive Sleep Apnea-Hypopnea Syndrome AHI: 28.3 (in 2015) Reason for follow up: first compliance after device update Equipment type: CPAP (RESMED Airsense 11) Equipment obtained from: Other ([facility]; getting supplies as needed) Mask style: Nasal (Wisp type mask) Backup mask available: Yes (old mask) Last cushion change: 2 weeks Prior sleep studies: Yes Year and Where: 2015 - [facility]; 2004 - [facility] Type of Sleep Study: Polysomnography HPI additional information: ASHA BRAMBILA was diagnosed to have moderate, AHI 28.3, obstructive sleep apnea-hypopnea syndrome and returned today for CPAP therapy first compliance after updating device follow-up. Sleep Study - Results Type of Sleep Study: Polysomnography Prior sleep studies: Yes Year and Where: 2015 - [facility]; 2004 - [facility] CPAP Compliance Data - Data Reviewed with Patient Average duration of nightly device use: 7 hours 16 minutes Compliance rate %: 97 (29/30 days used) Current pressure setting (cmH2O): 9 Average residual AHI: 0.7 Central apnea: 0.2 Obstructive apnea: 0.4 Hypopnea: 0.1 Average large leak: 0.7 L/min Subjective Patient concerns: denies: aerophagia, mask discomfort, air blowing in eyes, mask leak noise, condensation in mask/hose, nasal congestion, dry mouth, nose, throat, epistaxis Observed to snore while using device: No Current pressure setting perceived as: comfortable On therapy, patient: reports: sleeping better, awakening more refreshed, being more awake and alert during the day, more rested overall. denies: drowsiness while driving Initial [place] Sleepiness Scale score: 4 (in 2010) Current [place] Sleepiness Scale score: 1 (12/13/22) Allergies and Home Medications Known drug allergies: Yes (erythromycin base) Drug allergies reviewed: Yes Home medication list reviewed: Yes (atorvastatin) Allergy and home medication list: Allergies erythromycin base [Erythromycin Base] Allergy (Intermediate, Verified 12/11/22 10:33) Rash Review of Systems Review of systems same as previous: Yes (no changes) Physical Exam Vital signs obtained and entered by: RACHELLE Aguayo MA Blood Pressure: 118/64 (LEFT ARM) Cuff size: regular Heart Rate: 59 O2 Saturation: 97 Height: 5 ft 6 in Weight: 233 lb 3.2 oz Body Mass Index: 37.6 BMI Classification: Obese Impression and Plan 1. Obstructive Sleep Apnea-Hypopnea Syndrome, moderate, with good treatment compliance and good apnea control. On CPAP therapy, the patient has better sleep quality and is more rested overall. Patient is comfortable with her new machine. She did receive the replacement from [employer] and is asking questions about getting supplies for both machines through her DME supplier so she can use one for travelling. I encouraged her to ask them if her insurance will cover the supplies for both and how they would do that. She voiced understanding and will call and asked them. Patient's apnea severity and rationale for treatment to reduce apnea, improve sleep quality and reduce cardiovascular and cerebrovascular events was reviewed. I also reviewed the benefit of consistent device use of CPAP for hypertension and diabetes. 2. Obesity, unspecified. Currently patients BMI is 37.6. Obesity increases the risk of apnea, CPAP pressure requirements and overall health risks especially cardiovascular and diabetes. Thus patient is advised to continue to try to lose weight. Continue CPAP pressure at 9 cmH2O Update supplies prescription Notify me if snoring with mask or feeling that the pressure is too much or too little Attempt to lose weight Call this office if any problems using CPAP Return for follow up in 1 year, or sooner if concerns arise Counseling Topics: Spare mask, Weight loss health impact Visit Type: In Office Time Spent with Patient (minutes): 20 Provider Statement: I spent 100% of the Face to Face Visit with the patient with greater than 50% spent counseling the patient and coordination of care.
[2022-12-13 09:04] VITALS: BP 118/64
== END 2022-12-13 08:26 | disposition home or self-care (01) ==
LOC: SC 08:25
PROVIDERS: ATTEND Nurse Practitioner Family
DX: G47.33 Obstructive sleep apnea (adult) (pediatric) (principal); E66.9 Obesity, unspecified; Z68.37 Body mass index [BMI] 37.0-37.9, adult
CPT/HCPCS: 99213; G0463; 99212

== ENCOUNTER 2023-01-01 14:56 | Outpatient (CLI) | payer MEDICARE, OTHER | END 2023-01-01 14:57 | disposition home or self-care (01) | LOC: MAC.MOP 14:56 | PROVIDERS: ATTEND Nurse Practitioner | DX: R00.2 Palpitations (principal) | CPT/HCPCS: 93246; 93248 ==

== ENCOUNTER 2023-01-09 14:24 | Outpatient (CLI) | payer MEDICARE, OTHER ==
--- NOTE | 2023-01-09 22:04 | Ultrasound Report ---
PROCEDURE: Retroperitoneal INDICATIONS: GILMER TECHNIQUE: Real-time scanning was performed of the retroperitoneal organs, with image documentation. COMPARISON: CT of abdomen and pelvis dated 06/30/2020. FINDINGS: Kidneys: Kidneys are normal in size. Right kidney measures 8.3 cm long; left kidney measures 10.1 c m long. Right renal cortical thickness is 0.7 cm; left renal cortical thickness is 0.6 cm. No solid masses, hydronephrosis, or nephrolithiasis. Multiple bilateral renal cysts are seen measures up to 1.6 x 1.5 x 1.4 cm in size in midpole of right kidney, 1.3 x 1.1 x 1.8 cm in size in upper pole of ri ght kidney, 1.5 x 1.7 x 1.3 cm in size in lower pole of left kidney, and 1.4 x 1.3 x 1.4 cm in size i n upper pole of left kidney. Bladder: Pre-void bladder volume is 267.4 mL. Post-void residual is 9.3 mL. Pre-void images demons trate no intraluminal masses or stones. On pre-void images, bilateral ureteral jets are noted with c olor Doppler interrogation. (Of note, ureteral jets may not be detectable in up to 25% of cases due to insufficient differences in specific gravity between ureteral and bladder urine). Miscellaneous: No free abdominal fluid. IMPRESSION: 1. Small bilateral renal cysts as above. No solid-appearing renal lesion. No hydronephrosis. Slightly atrophic right kidney compared to the left side. Thinning of bilateral renal cortex. 2. Normal appearing urinary bladder with small amount of postvoid residual. Reviewed by: Johnson Lemon MD on 01/09/2023 10:03 PM PDT Approved by: Johnson Lemon MD on 01/09/2023 10:03 PM PDT Station ID: [id number]
== END 2023-01-09 14:25 | disposition home or self-care (01) ==
LOC: DI 14:24
PROVIDERS: ATTEND Internal Medicine Nephrology
DX: N17.9 Acute kidney failure, unspecified (principal); N28.1 Cyst of kidney, acquired; N26.1 Atrophy of kidney (terminal)

== ENCOUNTER 2023-01-15 11:33 | Outpatient (CLI) | payer MEDICARE, OTHER ==
[2023-01-15 11:57] LABS: BILIRUBIN,URINE NEGATIVE (NEGATIVE); GLUCOSE, URINE (UA) NEGATIVE (NEGATIVE); KETONES,URINE (UA) NEGATIVE (NEGATIVE); LEUKOCYTE ESTERASE, URINE NEGATIVE (NEGATIVE); NITRITE,URINE NEGATIVE (NEGATIVE); OCCULT BLOOD,URINE TRACE-INTA (NEGATIVE); PH,URINE 5.5 PH (5.0-7.5); PROTEIN,URINE NEGATIVE (NEGATIVE); UROBILINOGEN,URINE 0.2 (NORMAL) E.U./dL (NORMAL)
[2023-01-15 11:59] LABS: CALCIUM 9.7 mg/dL (8.5-10.3); CREATININE 1.4 mg/dL (0.6-1.3)
[2023-01-15 12:05] LABS: CLARITY,URINE CLEAR (CLEAR); RBC,URINE 0-5 /HPF (0-5); WBC,URINE 0-3 /HPF (0-5)
[2023-01-15 12:06] LABS: BACTERIA,URINE None Seen /HPF (None Seen); SQUAMOUS EPITHELIAL CELL,UR RARE Squamous (<= Few)
[2023-01-15 12:07] LABS: CREATININE,URINE 35.8 mg/dL; PROTEIN/CREATININE RATIO,URINE 55.9 (<=0.2); TOTAL PROTEIN,URINE TIMED > 2000 mg/dL
== END 2023-01-15 11:34 | disposition home or self-care (01) ==
LOC: LAB 11:33
PROVIDERS: ATTEND Internal Medicine Nephrology
DX: E11.9 Type 2 diabetes mellitus without complications (principal); N05.9 Unspecified nephritic syndrome with unspecified morphologic changes; R80.9 Proteinuria, unspecified; N30.00 Acute cystitis without hematuria; M60.9 Myositis, unspecified
CPT/HCPCS: 36415; 80048; 81001; 82550; 82570; 84156

== ENCOUNTER 2023-06-12 09:20 | Outpatient (CLI) | payer MEDICARE, OTHER ==
[2023-06-12 20:44] LABS: CREATININE,URINE 67.2 mg/dL; MICROALBUM/CREATININE RATIO,UR 37.2 ug/mg (<30.0); MICROALBUMIN,URINE 2.5 mg/dL
[2023-06-12 21:16] LABS: ESTIMATED AVERAGE GLUCOSE 154 mg/dL (70-100)
== END 2023-06-12 09:21 | disposition home or self-care (01) ==
LOC: LAB.S 09:20
PROVIDERS: ATTEND Nurse Practitioner
DX: E11.29 Type 2 diabetes mellitus with other diabetic kidney complication (principal)
CPT/HCPCS: 36415; 82043; 82570; 83036

== ENCOUNTER 2023-07-09 09:00 | Outpatient (CLI) | payer MEDICARE, OTHER | END 2023-07-09 23:59 | disposition home or self-care (01) | LOC: LAB.S 09:00 | PROVIDERS: ATTEND Registered Nurse | DX: N30.00 Acute cystitis without hematuria (principal) | CPT/HCPCS: 87086; 87181 ==

== ENCOUNTER 2023-10-16 09:46 | Outpatient (CLI) | payer MEDICARE ==
[2023-10-16 14:29] LABS: BASOPHILS # (AUTO) 0.1 10^3/uL (0.0-0.1); BASOPHILS % (AUTO) 0.5 %; EOSINOPHILS # (AUTO) 0.2 10^3/uL (0.0-0.7); EOSINOPHILS % (AUTO) 2.5 %; HCT - HEMATOCRIT 36.2 % (37.0-47.0); HGB - HEMOGLOBIN 11.6 g/dL (12.0-16.0); LYMPHOCYTES # (AUTO) 1.6 10^3/uL (1.5-3.5); LYMPHOCYTES % (AUTO) 17.3 %; MEAN CORPUSCULAR HEMOGLOBIN 30.1 pg (27.0-31.0); MEAN CORPUSCULAR VOLUME 93.8 fL (81.0-99.0); MEAN PLATELET VOLUME 10.2 fL (7.9-10.8); MONOCYTES # (AUTO) 0.6 10^3/uL (0.0-1.0); MONOCYTES % (AUTO) 6.1 %; NEUTROPHILS # (AUTO) 6.7 10^3/uL (1.5-6.6); NEUTROPHILS % (AUTO) 73.1 %; PLT - PLATELET COUNT 307 10^3/uL (130-450); RED BLOOD COUNT 3.86 10^6/uL (4.20-5.40); RED CELL DISTRIBUTION WIDTH 12.6 % (12.0-15.0); WHITE BLOOD COUNT 9.2 x10^3/uL (4.8-10.8)
[2023-10-16 14:38] LABS: BILIRUBIN,URINE NEGATIVE (NEGATIVE); GLUCOSE, URINE (UA) NEGATIVE (NEGATIVE); KETONES,URINE (UA) NEGATIVE (NEGATIVE); LEUKOCYTE ESTERASE, URINE SMALL (NEGATIVE); NITRITE,URINE NEGATIVE (NEGATIVE); OCCULT BLOOD,URINE SMALL (NEGATIVE); PROTEIN,URINE NEGATIVE (NEGATIVE); UROBILINOGEN,URINE 0.2 (NORMAL) E.U./dL (NORMAL)
[2023-10-16 14:48] LABS: CLARITY,URINE CLEAR (CLEAR)
[2023-10-16 14:49] LABS: BACTERIA,URINE Moderate /HPF (None Seen); RBC,URINE None Seen /HPF (0-5); SQUAMOUS EPITHELIAL CELL,UR RARE Squamous (<= Few)
[2023-10-16 15:50] LABS: ALBUMIN/GLOBULIN RATIO 1.3 (1.0-2.2); ALKALINE PHOSPHATASE 128 IU/L (42-121); ALT ALANINE AMINOTRANSFERASE 15 IU/L (10-60); AST ASPARTATE AMINOTRANSFERASE 17 IU/L (10-42); BILIRUBIN,TOTAL 0.4 mg/dL (0.2-1.0); BUN - BLOOD UREA NITROGEN 41 mg/dL (6-20); CARBON DIOXIDE - CO2 25 mmol/L (21-32); CHLORIDE 103 mmol/L (101-111); CHOL/HDL RATIO 2.8 (<4.4); CHOLESTEROL 103 mg/dL; CREATININE 1.2 mg/dL (0.6-1.3); GFR - MDRD 43 (>89); GLUCOSE 128 mg/dL (74-104); HDL CHOLESTEROL 37 mg/dL; LDL CHOLESTEROL,CALCULATED 48 mg/dL; LDL/HDL RATIO 1.3 (<4.4); POTASSIUM 5.3 mmol/L (3.5-4.5); SODIUM 133 mmol/L (135-145); TOTAL PROTEIN 7.1 g/dL (6.4-8.9); TRIGLYCERIDES 91 mg/dL (48-352); VLDL CHOLESTEROL 18 mg/dL
[2023-10-16 15:58] LABS: THYROID STIMULATING HORMONE 1.67 uIU/mL (0.34-5.60)
[2023-10-16 20:13] LABS: ESTIMATED AVERAGE GLUCOSE 166 mg/dL (70-100); HEMOGLOBIN A1c% 7.4 % (4.27-6.07)
== END 2023-10-16 09:47 | disposition home or self-care (01) ==
LOC: LAB.S 09:46
PROVIDERS: ATTEND Nurse Practitioner
DX: R30.0 Dysuria (principal); E11.9 Type 2 diabetes mellitus without complications; I10 Essential (primary) hypertension; E78.6 Lipoprotein deficiency; E07.9 Disorder of thyroid, unspecified
CPT/HCPCS: 36415; 80053; 80061; 81001; 83036; 83721; 84443; 85025; 87086

== ENCOUNTER 2023-11-23 11:30 | Outpatient (CLI) | payer MEDICARE ==
[2023-11-23 16:22] LABS: CALCIUM 9.8 mg/dL (8.5-10.3); CREATININE 1.3 mg/dL (0.6-1.3); POTASSIUM 4.9 mmol/L (3.5-4.5)
== END 2023-11-23 11:31 | disposition home or self-care (01) ==
LOC: LAB.S 11:30
PROVIDERS: ATTEND Nurse Practitioner
DX: E87.5 Hyperkalemia (principal); Z51.81 Encounter for therapeutic drug level monitoring
CPT/HCPCS: 36415; 80048

== ENCOUNTER 2024-01-01 08:20 | Outpatient (CLI) | payer MEDICARE ==
--- NOTE | 2024-01-01 08:46 | Sleep Patient Instructions ---
Sleep Center Visit Summary - Patient Visit Information Reason for Visit: Annual follow-up - Patient Instructions Additional Instructions: You will continue with CPAP therapy with pressure set at 9 cmH2O. A supply prescription will be updated with your DME. We encourage you to continue to try to lose weight. Please follow up with the sleep care office in 1 year. - Clinic Information Contact: [facility] [address] [place] [address] [email or web address] T: [phone]
--- NOTE | 2024-01-01 08:50 | SLEEP CARE CONSULTATION ---
Information from patient questionnaire entered by Tracey Soriano. I have reviewed and concur with the information entered by Tracey Soriano. This document represents the service I personally performed and the decisions made by me, Mellisa Edmond ARNP. History of Present Illness Service Date and Time: 01/01/2024 0820 Previous diagnosis: Moderate, Obstructive Sleep Apnea-Hypopnea Syndrome AHI: 28.3 (in 2015) Reason for follow up: annual (LST SEEN 12/2022) Equipment type: CPAP (RESMED Airsense 11; s/u 02/15/2022) Equipment obtained from: Other ([facility]; getting supplies as needed) Mask style: Nasal (over the nose) Backup mask available: Yes Last cushion change: 3 weeks Prior sleep studies: Yes Year and Where: 2015 - [facility]; 2004 - [facility] Type of Sleep Study: Polysomnography HPI additional information: ASHA BRAMBILA was diagnosed to have moderate, AHI 28.3, obstructive sleep apnea-hypopnea syndrome and returned today for CPAP therapy annual follow-up. Sleep Study - Results Type of Sleep Study: Polysomnography Prior sleep studies: Yes Year and Where: 2015 - [facility]; 2004 - [facility] CPAP Compliance Data - Data Reviewed with Patient Average duration of nightly device use: 7 HRS 1 MIN Compliance rate %: 98 (12/28/22-12/27/23; 360/365 days used) Current pressure setting (cmH2O): 9 Average residual AHI: 0.6 Central apnea: 0.1 Obstructive apnea: 0.3 Hypopnea: 0.1 Average large leak: 2.3 L/min Compliance data discussion: She uses another CPAP when not using her Airsense 11. An older CPAP. She also received a Dreamstation 2 from [employer] to replace recalled machine. Subjective Patient concerns: denies: aerophagia, mask discomfort, air blowing in eyes, mask leak noise, condensation in mask/hose, nasal congestion, dry mouth, nose, throat, epistaxis Observed to snore while using device: No Current pressure setting perceived as: comfortable On therapy, patient: reports: sleeping better, awakening more refreshed, being more awake and alert during the day, more rested overall. denies: drowsiness while driving Initial [place] Sleepiness Scale score: 4 (in 2010) Current [place] Sleepiness Scale score: 1 (01/01/24) Allergies and Home Medications Known drug allergies: Yes (as listed) Drug allergies reviewed: Yes Home medication list reviewed: Yes (no changes) Allergy and home medication list: Allergies erythromycin base [Erythromycin Base] Allergy (Intermediate, Verified 12/28/23 12:45) Rash Review of Systems Review of systems same as previous: Yes (NO CHANGE) Physical Exam Vital signs obtained and entered by: TRACEY Aguayo MA Blood Pressure: 126/64 (LEFT ARM) Cuff size: regular Heart Rate: 63 O2 Saturation: 94 Height: 5 ft 6 in Weight: 231 lb 12.8 oz Weight change since last visit: 2 lb loss Body Mass Index: 37.4 BMI Classification: Obese Impression and Plan 1. Obstructive Sleep Apnea-Hypopnea Syndrome, moderate, with good treatment compliance and good apnea control. On CPAP therapy, the patient has better sleep quality and is more rested overall. She received a [employer] DreamStation 2 a month or so after receiving her new [employer]Med. She has tried it out and would like to change to using it full-time but when she spoke with her DME about getting supplies for it they did not switch to giving her supplies for that machine. I could add a note to her supply update prescription and she will need to talk to them again to see if they will send supplies for her to use the Dreamstation. She voiced understanding. She has significant improvement of her sleep apnea and is satisfied with current CPAP therapy. She has no significant complaints or issues with using the CPAP. Patient's apnea severity and rationale for treatment to reduce apnea, improve sleep quality and reduce cardiovascular and cerebrovascular events was reviewed. I also reviewed the benefit of consistent device use of CPAP for hypertension, diabetes. 2. Obesity, unspecified. Currently patients BMI is 37.4. Obesity increases the risk of apnea, CPAP pressure requirements and overall health risks especially cardiovascular and diabetes. Thus patient is advised to lose weight. * Continue CPAP pressure at 9 cmH2O * Update supply prescription. * Notify me if snoring with mask or feeling that the pressure is too much or too little * Attempt to lose weight * Call this office if any problems using CPAP * Return for follow up in 12 months, or sooner if concerns arise Counseling Topics: Spare mask, Weight loss health impact Prescriptions: Device supplies Follow up with Sleep Care in: 1 year Visit Type: In Office Time Spent with Patient (minutes): 23 Provider Statement: I spent 100% of the Face to Face Visit with the patient with greater than 50% spent counseling the patient and coordination of care.
[2024-01-01 08:53] VITALS: BP 126/64; O2SAT 94
== END 2024-01-01 08:21 | disposition home or self-care (01) ==
LOC: SC 08:20
PROVIDERS: ATTEND Nurse Practitioner Family
DX: G47.33 Obstructive sleep apnea (adult) (pediatric) (principal); E66.9 Obesity, unspecified; Z68.37 Body mass index [BMI] 37.0-37.9, adult
CPT/HCPCS: 99213; G0463; 99212

== ENCOUNTER 2024-01-08 08:17 | Outpatient (CLI) | payer MEDICARE ==
--- NOTE | 2024-01-08 21:51 | DEXA Report ---
PROCEDURE: Dexa Spine and/or Hip INDICATIONS: POST MENOPAUSAL TECHNIQUE: Dual energy x-ray absorptiometry (DXA) was performed on a NEMOPTIC System. Regions measur ed are the AP Spine, femoral neck, and if needed forearm. COMPARISON: 6 02/03/2020 FINDINGS: Lumbar Spine: Bone Mineral Density: 1.58 g/cm/cm,T score: 3.2, compared to 2.3. Left Femoral Neck: Bone Mineral Density: 1.0-0 g/cm/cm, T score: -0.1, compared to 0.3. Left Hip: Bone Mineral Density: 1.07 g/cm/cm,T score: 0.6, compared to 0.8. FRAX risk factors: None given. Not applicable (T score greater or equal to -1.0: NORMAL) (T score from -1.1 to -2.4: OSTEOPENIA) (T score less than or equal to -2.5 to: OSTEOPOROSIS) Impression: By WHO criteria, this patient has normal bone density. Patients with diagnosis of osteoporosis or osteopenia should have regular bone mineral density assess ment. For those eligible for Medicare, routine testing is allowed once every 2 years. Testing frequ ency can be increased for patients who have rapidly progressing disease or for those who are receivin g medical therapy to restore bone mass. Reviewed by: Chastity Hernandez MD on 01/08/2024 9:50 PM PDT Approved by: Chastity Hernandez MD on 01/08/2024 9:50 PM PDT Station ID: [id number]
== END 2024-01-08 08:18 | disposition home or self-care (01) ==
LOC: DI 08:17
PROVIDERS: ATTEND Nurse Practitioner
DX: Z78.0 Asymptomatic menopausal state (principal)

== ENCOUNTER 2024-01-28 10:56 | Outpatient (CLI) | payer MEDICARE ==
[2024-01-28 20:22] LABS: BILIRUBIN,URINE NEGATIVE (NEGATIVE); GLUCOSE, URINE (UA) NEGATIVE (NEGATIVE); KETONES,URINE (UA) NEGATIVE (NEGATIVE); LEUKOCYTE ESTERASE, URINE MODERATE (NEGATIVE); NITRITE,URINE NEGATIVE (NEGATIVE); OCCULT BLOOD,URINE SMALL (NEGATIVE); PROTEIN,URINE NEGATIVE (NEGATIVE); UROBILINOGEN,URINE 0.2 (NORMAL) E.U./dL (NORMAL)
[2024-01-28 20:27] LABS: CLARITY,URINE HAZY (CLEAR)
[2024-01-28 20:46] LABS: BACTERIA,URINE Moderate /HPF (None Seen); RBC,URINE 0-5 /HPF (0-5); SQUAMOUS EPITHELIAL CELL,UR RARE Squamous (<= Few)
== END 2024-01-28 10:57 | disposition home or self-care (01) ==
LOC: LAB.S 10:56
PROVIDERS: ATTEND Family Medicine
DX: N30.00 Acute cystitis without hematuria (principal)
CPT/HCPCS: 81001; 87086

== ENCOUNTER 2024-01-31 11:28 | Outpatient (CLI) | payer MEDICARE ==
[2024-01-31 11:40] LABS: HCT - HEMATOCRIT 37.4 % (37.0-47.0); HGB - HEMOGLOBIN 12.1 g/dL (12.0-16.0); MEAN CORPUSCULAR HEMOGLOBIN 30.3 pg (27.0-31.0); MEAN CORPUSCULAR HGB CONC 32.4 g/dL (32.0-36.0); MEAN CORPUSCULAR VOLUME 93.5 fL (81.0-99.0); MEAN PLATELET VOLUME 10.1 fL (7.9-10.8); RED CELL DISTRIBUTION WIDTH 12.2 % (12.0-15.0)
[2024-01-31 11:47] LABS: INR 1.2 (0.8-1.2); PT - PROTHROMBIN TIME 13.3 secs (9.9-12.6)
[2024-01-31 12:04] LABS: CALCIUM 9.6 mg/dL (8.5-10.3); CREATININE 1.4 mg/dL (0.6-1.3); POTASSIUM 4.6 mmol/L (3.5-4.5)
--- NOTE | 2024-01-31 17:39 | XRAY Report ---
PROCEDURE: Lumbar Spine 2-3V INDICATIONS: LOW BACK PAIN TECHNIQUE: 3 views of the lumbar spine were acquired. COMPARISON: None. FINDINGS: Surgical change: None. Bones: 5 [id number] vertebrae are present. No vertebral body compression fractures. No suspici ous bony lesions. Multilevel degenerative disc and foraminal narrowing is present most severe at L5-S 1. There is grade 1/2 anterolisthesis of L5 on S1 with pars defect. Soft tissues: Overlying bowel gas pattern is normal. No suspicious soft tissue calcifications. IMPRESSION: Multilevel degenerative changes including grade 1/2 anterolisthesis with pars defect at L5-S1. Reviewed by: Chastity Hernandez MD on 01/31/2024 5:37 PM PDT Approved by: Chastity Hernandez MD on 01/31/2024 5:37 PM PDT Station ID: [id number]
--- NOTE | 2024-01-31 17:41 | XRAY Report ---
PROCEDURE: Thoracic Spine 2V INDICATIONS: LOW BACK PAIN TECHNIQUE: 3 views of the thoracic spine were acquired. COMPARISON: None. FINDINGS: Bones: No fractures or dislocations. No suspicious bony lesions. 12 pairs of ribs are noted, and a ppear intact where visualized. Multilevel moderate disc desiccation. Multilevel bridging anterior os teophytes are present. Soft tissues: No paravertebral stripe thickening. IMPRESSION: Surgical changes demonstrating disc space narrowing as well as anterior osteophytes are present. Unde rlying diffuse idiopathic skeletal hyperostosis should be considered. Reviewed by: Chastity Hernandez MD on 01/31/2024 5:39 PM PDT Approved by: Chastity Hernandez MD on 01/31/2024 5:39 PM PDT Station ID: [id number]
== END 2024-01-31 11:29 | disposition home or self-care (01) ==
LOC: LAB 11:28
PROVIDERS: ATTEND Internal Medicine Cardiovascular Disease
DX: I20.9 Angina pectoris, unspecified (principal); M54.50 Low back pain, unspecified; G89.29 Other chronic pain; M25.78 Osteophyte, vertebrae
CPT/HCPCS: 36415; 80048; 85027; 85610

== ENCOUNTER 2024-02-28 09:59 | Outpatient (CLI) | payer MEDICARE ==
[2024-02-28 10:44] LABS: CREATININE 1.7 mg/dL (0.6-1.3); POTASSIUM 4.8 mmol/L (3.5-4.5)
== END 2024-02-28 10:00 | disposition home or self-care (01) ==
LOC: LAB 09:59
PROVIDERS: ATTEND Internal Medicine Cardiovascular Disease
DX: I10 Essential (primary) hypertension (principal)
CPT/HCPCS: 36415; 80048

== ENCOUNTER 2024-05-01 04:37 | Observation (INO) ==
--- NOTE | 2024-05-01 05:03 | ED Physician Documentation ---
PD HPI Fall Stated complaint Stated Complaint: FALL Chief complaint Chief Complaint: Trauma Hd/Nk Additional information Additional information: CANDY. HPI from EMS and patient. Patient fell yesterday morning while ambulating at home. She had no prodrome before waking up on the floor of her kitchen. She does not know length of LOC. She felt well upon waking up and thus did not call 911. At approximately 3 AM this morning, she was again ambulating in her house when she felt she was losing her balance; she grabbed a counter top to try to steady herself but still fell, striking her head (right side of face) on the counter. She did not have LOC with this fall. She felt too weak to stand and ambulate at baseline (generalized weakness) and thus called 911. She denies numbness, visual changes, headache (does have right-sided facial pain where she struck the counter). She denies focal/lateralizing weakness. Patient denies h/o similar episodes. She notes atraumatic neck pain x 3 days, decreased appetite and decreased urine output over past several days. Anuradha Coma Scale Assess Eye opening: Spontaneous Verbal response: Oriented Motor response: Obeys Commands Total score: 15 Meds/Allgy Home Medications Ambulatory Orders Medication Instructions Recorded Confirmed aspirin 81 mg tablet,delayed 81 mg PO DAILY 09/02/13 04/17/24 release (Aspir-) carvedilol 25 mg tablet (Coreg) 50 mg PO BID 04/14/20 04/17/24 atorvastatin 10 mg tablet See Rx Instructions .Route .COMPLEX 12/13/22 04/17/24 Permanent Disabled Placard 04/17/24 04/17/24 biotin PO 04/17/24 04/17/24 blood sugar diagnostic (True 04/17/24 04/17/24 Metrix Glucose Test Strip) blood-glucose meter (True Metrix 04/17/24 04/17/24 Glucose Meter) cholecalciferol (vitamin D3) 125 125 mcg PO QDAY 04/17/24 04/17/24 mcg (5,000 unit) capsule coenzyme Q10 [Co Q-10] PO 04/17/24 04/17/24 estradiol 0.01% (0.1 mg/gram) 1 g vaginal QDAY 04/17/24 04/17/24 vaginal cream (Estrace) glimepiride 1 mg tablet 1 mg PO QDAY 04/17/24 04/17/24 isosorbide mononitrate 20 mg tablet 20 mg PO BID 04/17/24 04/17/24 lancets 30 gauge (True Comfort 04/17/24 04/17/24 Lancet) losartan 50 mg tablet 50 mg PO DAILY 04/17/24 04/17/24 magnesium sulfate PO 04/17/24 04/17/24 nitroglycerin 0.4 mg sublingual 0.4 mg sublingual Q5M PRN 04/17/24 04/17/24 tablet (Nitrostat) omega 6-qwp-mxh-fish oil 300 1 cap PO QDAY 04/17/24 04/17/24 mg-1,000 mg capsule (Fish Oil) omeprazole 20 mg tablet,delayed 20 mg PO QDAY 04/17/24 04/17/24 release spironolactone 25 mg tablet 25 mg PO DAILY 04/17/24 04/17/24 (Aldactone) Allergies Allergies Allergy/AdvReac Type Severity Reaction Status Date / Time erythromycin base Allergy Intermediate Rash Verified 04/17/24 07:52 (Erythromycin Base) [facility] Surgical History Surgical History (Updated 04/17/24 @ 08:06 by Nathalie Merritt) S/P left knee arthroscopy 2020 S/P tubal ligation Family History Family History (Updated 04/17/24 @ 08:05 by Nathalie Merritt) Mother CVA (cerebral vascular accident) Osteoporosis Melanoma High blood pressure CAD (coronary artery disease) Father Osteoporosis Diabetes Paternal grandfather Diabetes Brother Dialysis patient Social History Social History (Updated 04/17/24 @ 09:36 by Nathalie Merritt) Smoking Status: Former smoker (Quit 50 years ago) If you are a former smoker, when did you quit? (Date/Year): 1979 How many cigarettes a day do you smoke? 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 Patient has POLST: No Exam Constitutional no apparent distress and alert HENMT bilateral periorbital ecchymosis R>L, right periorbital and forehead swelling with right supraorbital and nasal bridge TTP without crepitus Eyes PERRL and EOMs intact bilaterally Neck/C-Spine cervical spine nontender Respiratory breath sounds equal bilaterally and clear to auscultation bilaterally Cardiovascular normal heart rate noted, regular rhythm noted, no murmur and no edema occasional extra beats Gastrointestinal abdomen soft to palpation and nontender to palpation 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 Relevant findings are: Rate: Rate (enter#) (63) Rhythm: NSR Kouts: Normal Intervals: Normal SD QRS: QRS normal Ischemia: Normal ST segments Labs Labs: Laboratory Tests 05/01/24 05/01/24 05:14 07:07 WBC 8.2 RBC 3.53 L Hgb 10.6 L Hct 32.8 L MCV 92.9 MCH 30.0 MCHC 32.3 RDW 13.4 Plt Count 131 MPV 10.3 Neut # (Auto) 7.1 H Lymph # (Auto) 0.3 L [place] # (Auto) 0.7 Eos # (Auto) 0.0 Baso # (Auto) 0.0 Absolute Nucleated RBC 0.00 Nucleated RBC % 0.0 Sodium 129 L Potassium 4.3 Chloride 97 L Carbon Dioxide 22 Anion Gap 10.0 BUN 86 H* Creatinine 3.2 H Estimated GFR (MDRD) 14 L Glucose 132 H Calcium 9.9 Total Bilirubin 0.5 AST 27 ALT 16 Alkaline Phosphatase 81 Troponin I High Sens 20.2 H* 19.3 H* Total Protein 6.4 Albumin 3.2 Globulin 3.2 Albumin/Globulin Ratio 1.0 Lipase 38 Rads (name of study) chest xray: Relevant Findings:: Prelim report reviewed and See rad report CTH: Relevant Findings:: Prelim report reviewed and See rad report CT cervical spine: Relevant Findings:: Prelim report reviewed and See rad report CT facial bones: Relevant Findings:: Prelim report reviewed and See rad report PD Medical Decision Making ED course Complexity details: reviewed results, considered differential, d/w patient and d/w family ED course: Syncopal episode yesterday, fall this morning due to loss of balance although she also notes generalized weakness. ED testing most notable for BUN 86, creatinine 3.2. Both of these results are significantly off baseline, with BUN generally 20s-30s over past 10 years, never higher (on [facility] records) than 55 until tonight, and creatinine never higher than 1.7 until tonight. Mildly elevated hs-cTn but no c/o chest pain, palpitations and no concerning findings on EKG. She is given 1 liter NS IV and care of patient turned over to oncoming ED physician (DR. Roque) at end of my shift, plan is to repeat hs-cTn and reevalaute after IV fluids given. Would likely benefit from admit for further testing (follow bun/creatinine, consider echo and ongoing telemetry as part of syncopal w/u). Discharge Plan Discharge Prescriptions: No Action aspirin [Aspir-81] 81 MG tablet,delayed release (DR/EC) 81 mg PO DAILY losartan 50 mg tablet 50 mg PO DAILY Rx Instructions: Take 1 tablet by mouth every day. carvedilol [Coreg] 25 MG tablet 50 mg PO BID spironolactone [Aldactone] 25 mg tablet 25 mg PO DAILY Rx Instructions: Take 1 tablet by mouth every morning. atorvastatin 10 MG tablet See Rx Instructions .Route .COMPLEX Rx Instructions: UNKNOWN DOSAGE HALF TAB QD biotin PO Rx Instructions: Take as directed cholecalciferol (vitamin D3) 125 mcg (5,000 unit) capsule 125 mcg PO QDAY Rx Instructions: Take 1 tablet by mouth once a day coenzyme Q10 [Co Q-10] PO Rx Instructions: Take as directed (DME) Permanent Disabled Placard Misc See Rx Instructions .ROUTE Rx Instructions: Use 1 as directed. Patient is unable to walk 200 feet without stopping to rest. Severe arthritic condition. estradiol [Estrace] 0.01 % (0.1 mg/gram) cream 1 g vaginal QDAY Rx Instructions: Apply 1/2 gram to vaginal/urethral area 3-7 times per week. omega 1-znv-fga-fish oil [Fish Oil] 300-1,000 mg capsule 1 cap PO QDAY Rx Instructions: Take 1 capsule daily by mouth glimepiride 1 mg tablet 1 mg PO QDAY Rx Instructions: Take 1 tablet by mouth once daily isosorbide mononitrate 20 mg tablet 20 mg PO BID Rx Instructions: Take 1.5 tablet by mouth once a day magnesium sulfate PO Rx Instructions: Take as directed. OTC nitroglycerin [Nitrostat] 0.4 mg tablet, sublingual 0.4 mg sublingual Q5M PRN Rx Instructions: Take 1 tablet under tongue as directed as needed for chest pain. May repeat every five minutes as needed x2. Call 911 if no relief after 2 doses. omeprazole 20 mg tablet,delayed release (DR/EC) 20 mg PO QDAY Rx Instructions: Take 1 capsule by mouth once a day. Take 1/2 hour before first meal of the day. (DME) lancets [True Comfort Lancet] 30 gauge misc See Rx Instructions .ROUTE Rx Instructions: Use 1 lancet via meter once a day to check blood sugar levels. Dx: E11.9 (DME) blood-glucose meter [True Metrix Glucose Meter] Misc See Rx Instructions .ROUTE Rx Instructions: As directed (DME) True Metrix Glucose Test Strip Strip See Rx Instructions .ROUTE Rx Instructions: Use 1 strip via meter once a day to check blood sugar. Print Language: Danish Stand Alone Forms: PCP List
[2024-05-01 05:18] LABS: BASOPHILS % (AUTO) 0.2 %; EOSINOPHILS % (AUTO) 0.5 %; HCT - HEMATOCRIT 32.8 % (37.0-47.0); HGB - HEMOGLOBIN 10.6 g/dL (12.0-16.0); LYMPHOCYTES # (AUTO) 0.3 10^3/uL (1.5-3.5); LYMPHOCYTES % (AUTO) 3.9 %; MEAN CORPUSCULAR HGB CONC 32.3 g/dL (32.0-36.0); MEAN CORPUSCULAR VOLUME 92.9 fL (81.0-99.0); MEAN PLATELET VOLUME 10.3 fL (7.9-10.8); MONOCYTES # (AUTO) 0.7 10^3/uL (0.0-1.0); MONOCYTES % (AUTO) 8.5 %; NEUTROPHILS # (AUTO) 7.1 10^3/uL (1.5-6.6); NEUTROPHILS % (AUTO) 86.5 %; PLT - PLATELET COUNT 131 10^3/uL (130-450); RED BLOOD COUNT 3.53 10^6/uL (4.20-5.40); RED CELL DISTRIBUTION WIDTH 13.4 % (12.0-15.0); WHITE BLOOD COUNT 8.2 x10^3/uL (4.8-10.8)
[2024-05-01 05:40] LABS: ALBUMIN 3.2 g/dL (3.2-5.5); BILIRUBIN,TOTAL 0.5 mg/dL (0.2-1.0); CALCIUM 9.9 mg/dL (8.5-10.3); CREATININE 3.2 mg/dL (0.6-1.3); POTASSIUM 4.3 mmol/L (3.5-4.5); TOTAL PROTEIN 6.4 g/dL (6.4-8.9); TROPONIN I HIGH SENSITIVITY 20.2 ng/L (2.3-14.8)
[2024-05-01] MEDS: SODIUM CHLORIDE 0.9% 1,000 ML IV STA (06:12)
--- NOTE | 2024-05-01 07:02 | ED Physician Documentation ---
ED Addendum Addendum Addendum: Sign out at 0700. This is an 88yo F who presented with falls in the last day, with possible syncope. She does not have clear prodrome, but rather has been ambulating then wakes up on the floor. CBC with no leukocytosis, mild anemia. Chemistry with hyponatremia to 129 (four points lower than 133 on 03/14), evidence of GILMER with Cr 3.2, BUN 86, troponin mildly elevated to 20.2. CT imaging (CT head, face, C-spine CXR) read without acute findings, with contusion to face on exam. Pt on Lasix for possible CHF. PLAN: follow up repeat EKG/troponin and reassess for obs admission. I am adding repeat EKG/troponin. Patient has history of DM2, HTN, HLD on chart review. Initial EKG showed normal sinus rhythm without acute ischemia or immediately concerning interval prolongation on my review, no WPW, HOCM, Brugada, long QT. Repeat EKG overall similar morphology to prior today, no acute ischemia, no immediately concerning for prolongation. Repeat troponin: improved. I am consulting hospitalist to discuss admit. I spoke with hospitalist Dr. Gonzalez at 0738, reviewing case; they kindly accept for admission. I updated patient who is stable, comfortable, denying new concerns, with son at bedside agreeing with plan as well. Discharge Plan Discharge Patient Disposition: 66 [facility] DC/Xfer Condition: Stable Clinical Impression: Syncope, GILMER (acute kidney injury), Elevated troponin Prescriptions: No Action aspirin [Aspir-81] 81 MG tablet,delayed release (DR/EC) 81 mg PO DAILY losartan 50 mg tablet 50 mg PO DAILY Rx Instructions: Take 1 tablet by mouth every day. carvedilol [Coreg] 25 MG tablet 50 mg PO BID spironolactone [Aldactone] 25 mg tablet 25 mg PO DAILY Rx Instructions: Take 1 tablet by mouth every morning. atorvastatin 10 MG tablet See Rx Instructions .Route .COMPLEX Rx Instructions: UNKNOWN DOSAGE HALF TAB QD biotin PO Rx Instructions: Take as directed cholecalciferol (vitamin D3) 125 mcg (5,000 unit) capsule 125 mcg PO QDAY Rx Instructions: Take 1 tablet by mouth once a day coenzyme Q10 [Co Q-10] PO Rx Instructions: Take as directed (DME) Permanent Disabled Placard Misc See Rx Instructions .ROUTE Rx Instructions: Use 1 as directed. Patient is unable to walk 200 feet without stopping to rest. Severe arthritic condition. estradiol [Estrace] 0.01 % (0.1 mg/gram) cream 1 g vaginal QDAY Rx Instructions: Apply 1/2 gram to vaginal/urethral area 3-7 times per week. omega 2-fcv-phr-fish oil [Fish Oil] 300-1,000 mg capsule 1 cap PO QDAY Rx Instructions: Take 1 capsule daily by mouth glimepiride 1 mg tablet 1 mg PO QDAY Rx Instructions: Take 1 tablet by mouth once daily isosorbide mononitrate 20 mg tablet 20 mg PO BID Rx Instructions: Take 1.5 tablet by mouth once a day magnesium sulfate PO Rx Instructions: Take as directed. OTC nitroglycerin [Nitrostat] 0.4 mg tablet, sublingual 0.4 mg sublingual Q5M PRN Rx Instructions: Take 1 tablet under tongue as directed as needed for chest pain. May repeat every five minutes as needed x2. Call 911 if no relief after 2 doses. omeprazole 20 mg tablet,delayed release (DR/EC) 20 mg PO QDAY Rx Instructions: Take 1 capsule by mouth once a day. Take 1/2 hour before first meal of the day. (DME) lancets [True Comfort Lancet] 30 gauge misc See Rx Instructions .ROUTE Rx Instructions: Use 1 lancet via meter once a day to check blood sugar levels. Dx: E11.9 (DME) blood-glucose meter [True Metrix Glucose Meter] Misc See Rx Instructions .ROUTE Rx Instructions: As directed (DME) True Metrix Glucose Test Strip Strip See Rx Instructions .ROUTE Rx Instructions: Use 1 strip via meter once a day to check blood sugar. Print Language: Nicaraguan Stand Alone Forms: PCP List
--- NOTE | 2024-05-01 07:28 | CT Report ---
PROCEDURE: CT Head WO INDICATIONS: fall, head injury TECHNIQUE: Noncontrast 4.5 mm thick angled axial sections acquired from the foramen magnum to the vertex. For r adiation dose reduction, the following was used: automated exposure control, adjustment of mA and/or kV according to patient size. COMPARISON: None. FINDINGS: Image quality: Excellent. Some images are limited by beam hardening artifacts most notably at the b ase of the skull. Moderate midline and right supraorbital,, anterior frontal, right periorbital soft tissue scalp swell ing/hematoma measures up to 1.3 cm depth. Ventricles and cortical sulci are mildly dilated commonly represents a pattern of atrophy. Mild areas of low-attenuation in the periventricular and deep white matter, basal ganglia, commonly r elated to chronic small vessel ischemic changes. Moderate hyperostosis frontalis interna and/or diffuse calvarium thickening. Mild vascular calcifications bilateral cavernous, supraclinoid carotids. No CT evidence of intracranial hemorrhage, mass lesion, mass effect. The orbits scalp, calvarium, paranasal sinuses, mastoid air cells, middle ear cavities within normal limits. IMPRESSION: Anterior scalp swelling/hematoma. No CT evidence of intracranial hemorrhage. Atrophy and chronic white matter small vessel ischemic changes. Findings are concordant with preliminary interpretation provided by [facility]. If symptoms persist or worsen, or there is high clinical suspicion of intracranial abnormality, MRI b rain could be performed. Reviewed by: Abdulaziz Santana MD on 05/01/2024 7:26 AM PST Approved by: Abdulaziz Santana MD on 05/01/2024 7:26 AM PST Station ID: [id number]
--- NOTE | 2024-05-01 07:35 | CT Report ---
PROCEDURE: CT Maxillofacial WO INDICATIONS: fall, right periorbital pain, swelling TECHNIQUE: Noncontrast 1.5 mm thick axial images acquired from the mandible through the frontal sinuses, with co devante and sagittal reformatting. For radiation dose reduction, the following was used: automated ex posure control, adjustment of mA and/or kV according to patient size. COMPARISON: None. FINDINGS: Image quality: Excellent. Some images are limited by beam hardening artifacts related to metallic d ental hardware. Tooth #10 is absent which may be acute posttraumatic or chronic. Mild mucoperiosteal thickening bilateral maxillary sinuses measuring up to 5 mm thickness. Moderate hyperostosis frontalis interna or diffuse calvarium thickening. Moderate midline and right anterior frontal, right supraorbital, right periorbital soft tissue swelli ng/hematoma measures up to 1.[address] evidence of fracture or high attenuation soft tissue foreign body. The orbits, and visualized portions of the mastoid air cells and middle air cavities within normal li mits. Nasal bones, nasal maxillary spine, maxilla, mandible intact. IMPRESSION: Moderate midline and right anterior frontal, right supraorbital, right periorbital soft tissue swelli ng/hematoma measures up to 1.2 cm depth. Tooth #[address] evidence of fracture. Findings are concordant with preliminary interpretation provided by [facility] Chuck ortiz MD on May 01, 2024 at 06:07. Reviewed by: Abdulaziz Santana MD on 05/01/2024 7:34 AM PST Approved by: Abdulaziz Santana MD on 05/01/2024 7:34 AM PST Station ID: [id number]
--- NOTE | 2024-05-01 07:52 | CT Report ---
PROCEDURE: CT Cervical Spine WO INDICATIONS: fall, neck pain TECHNIQUE: Noncontrast 3 mm thick sections acquired from the skull base to the T4 level. Sagittal and coronal r eformats were then constructed. For radiation dose reduction, the following was used: automated exp osure control, adjustment of mA and/or kV according to patient size. COMPARISON: None. FINDINGS: Image quality: Excellent. Some images are limited by edema hardening artifacts related to metallic dental hardware and patient motion artifacts. Straightening of the normal cervical lordosis and mild to moderate levoscoliosis some of which may be artifact from positioning or related to muscle spasm or degenerative changes. Moderate degenerative changes of the cervical spine with disc space narrowing, osteophytes, uncoverte bral and facet hypertrophic changes, most notably at C3-4, C4-5, C5-6, C6-7 with moderate to severe b ilateral neural foraminal narrowing. Suspicion of mild central stenosis at C6-7. Fragmentation of the posterior aspect of the spinous process at C7 more likely chronic remote fractur e with nonunion rather than acute, with somewhat of a well corticated appearance and no surrounding s oft tissue edema. Moderate right and mild left carotid bifurcation calcifications. Limited images of the lung apices demonstrate mild bilateral apical pleural thickening/scarring. No CT evidence of subluxation. No abnormal prevertebral soft tissue swelling. IMPRESSION: Fragmentation of the posterior aspect of the spinous process at C7 likely chronic. Straightening of the normal cervical lordosis and levoscoliosis. Moderate degenerative changes. Moderate carotid bifurcation calcifications. No other CT evidence of fracture or subluxation. If symptoms persist or worsen, or there is high clin ical suspicion of cervical abnormality, MRI could be performed. Preliminary report was provided by [facility] Chuck Wagner MD May 01, 2024 at 06:17. Reviewed by: Abdulaziz Santana MD on 05/01/2024 7:50 AM PST Approved by: Abdulaziz Santana MD on 05/01/2024 7:50 AM PST Station ID: [id number]
--- NOTE | 2024-05-01 09:27 | XRAY Report ---
PROCEDURE: XR Chest 1V INDICATIONS: Chest Pain TECHNIQUE: One view of the chest was acquired. COMPARISON: None. FINDINGS / IMPRESSION: Mild bibasilar subsegmental atelectasis some of which may be related to expiratory result. Mild calcific lesions of the aortic arch. Degenerative changes of the thoracic spine and shoulders. No pneumothorax, no pleural effusion, no lobar consolidation. Cardiopericardial silhouette and pulmonary vasculature within normal limits. If symptoms persist or worsen, or there is high clinical suspicion of thoracic abnormality, CT could be performed. Preliminary report was provided by [facility], Chuck Wagner MD May 01, 2024 at 05:52 Reviewed by: Abdulaziz Santana MD on 05/01/2024 9:26 AM PST Approved by: Abdulaziz Santana MD on 05/01/2024 9:26 AM PST Station ID: [id number]
[2024-05-01] MEDS: oxyCODONE 5 MG TABLET PO STA (11:20)
--- NOTE | 2024-05-01 13:37 | HISTORY & PHYSICAL EXAMINATION ---
Chief Complaint Chief Complaint Chief Complaint: Multiple falls History of Present Illness Admitted From Admitted From:: ED History Obtained From History obtained from: patient and son at bedside Exam Limitations: none History of Present Illness HPI Comment/Other: 88-year-old female PMH significant for DMT2, HTN, HLD who presented with falls over the past day. She ambulates at home with a cane and leaning on furniture. She reported she was moving around within the house and woke up on the floor. Reports no dizziness, was able to get herself back up. She had 1 more mechanical fall in addition to this. In the ER, she was noted to have bruising on her right elbow, right knee, and her face. CT head, facial bones, C-spine was without acute fracture. CXR without acute abnormality. She was noted to have a hyponatremia at 129. EKG NSR without acute ischemia. Hospitalist was contacted for admission Meds/Allgy Home Medications Ambulatory Orders Medication Instructions Recorded Confirmed aspirin 81 mg tablet,delayed 81 mg PO DAILY 09/02/13 04/17/24 release (Aspir-) carvedilol 25 mg tablet (Coreg) 50 mg PO BID 04/14/20 04/17/24 atorvastatin 10 mg tablet See Rx Instructions .Route .COMPLEX 12/13/22 04/17/24 Permanent Disabled Placard 04/17/24 04/17/24 biotin PO 04/17/24 04/17/24 blood sugar diagnostic (True 04/17/24 04/17/24 Metrix Glucose Test Strip) blood-glucose meter (True Metrix 04/17/24 04/17/24 Glucose Meter) cholecalciferol (vitamin D3) 125 125 mcg PO QDAY 04/17/24 04/17/24 mcg (5,000 unit) capsule coenzyme Q10 [Co Q-10] PO 04/17/24 04/17/24 estradiol 0.01% (0.1 mg/gram) 1 g vaginal QDAY 04/17/24 04/17/24 vaginal cream (Estrace) glimepiride 1 mg tablet 1 mg PO QDAY 04/17/24 04/17/24 isosorbide mononitrate 20 mg tablet 20 mg PO BID 04/17/24 04/17/24 lancets 30 gauge (True Comfort 04/17/24 04/17/24 Lancet) losartan 50 mg tablet 50 mg PO DAILY 04/17/24 04/17/24 magnesium sulfate PO 04/17/24 04/17/24 nitroglycerin 0.4 mg sublingual 0.4 mg sublingual Q5M PRN 04/17/24 04/17/24 tablet (Nitrostat) omega 4-fib-pvv-fish oil 300 1 cap PO QDAY 04/17/24 04/17/24 mg-1,000 mg capsule (Fish Oil) omeprazole 20 mg tablet,delayed 20 mg PO QDAY 04/17/24 04/17/24 release spironolactone 25 mg tablet 25 mg PO DAILY 04/17/24 04/17/24 (Aldactone) Allergies Allergies Allergy/AdvReac Type Severity Reaction Status Date / Time erythromycin base Allergy Intermediate Rash Verified 04/17/24 07:52 (Erythromycin Base) NSAIDS (Non-Steroidal AdvReac Unknown Verified 05/01/24 10:08 Anti-Inflamma PFSH Surgical History Surgical History (Updated 04/17/24 @ 08:06 by Nathalie Merritt) S/P left knee arthroscopy 2020 S/P tubal ligation Family History Family History (Updated 04/17/24 @ 08:05 by Nathalie Merritt) Mother CVA (cerebral vascular accident) Osteoporosis Melanoma High blood pressure CAD (coronary artery disease) Father Osteoporosis Diabetes Paternal grandfather Diabetes Brother Dialysis patient Social History Social History (Updated 04/17/24 @ 09:36 by Nathaile Merritt) Smoking Status: Former smoker (Quit 50 years ago) If you are a former smoker, when did you quit? (Date/Year): 1979 How many cigarettes a day do you smoke? 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: Yes POLST Patient has POLST: No Review of Systems Status of ROS: 10 or more systems reviewed and unremarkable except as noted in history and below Constitutional Reports: Fever; Denies: Chills Eyes Denies: Pain or Irritation Ears, nose, mouth, and throat Denies: Ear pain, Vertigo or Neck pain Cardiovascular Denies: Irregular heart rate, chest pain or shortness of breath with exertion Respiratory Denies: Shortness of breath Gastrointestinal Denies: Abdominal pain or Abdominal distention Genitourinary Denies: Painful urination or Urinary frequency Musculoskeletal Denies: Back pain or Neck pain Integumentary/Breast Denies: Rash Neurological Denies: Headache, Dizziness or Vertigo Exam Constitutional no apparent distress Elderly female with significant bruising on her face. No acute distress HENMT normocephalic Facial bruising Eyes PERRL and EOMs intact bilaterally Neck/C-Spine visual inspection normal Lymph no lymphadenopathy noted Chest inspection of chest normal and palpation of chest normal Respiratory breath sounds equal bilaterally Cardiovascular normal heart rate noted and regular rhythm noted Gastrointestinal abdomen normal to inspection Genitourinary no CVA tenderness and bladder normal to palpation Back/Pelvis spine normal to inspection Extremities normal to inspection Bruising on right knee and elbow Neurology meter reader II-XII intact Psychiatry oriented x3 Skin Bruising on right knee and elbow, Face Conclusion/Plan Problem List (1) Syncope: Plan: Placed in observation Telemetry Echo Manage hyponatremia, GILMER as below Check UA She reports using a cane at home, and also bracing off of furniture. I have consulted PT to see if she is safe for discharge when done with her observation status (2) Hyponatremia: Plan: 1 L NS given in ER BMP daily (3) GILMER (acute kidney injury): Plan: 1 L NS given in ER BMP daily Check UA, Patient has history of multiple pansensitive E. coli UTIs Encourage p.o. intake given IV fluid shortage Reports history of CKD, last creatinine was 1.7, up to 3.2 today (4) Elevated troponin: Plan: Trend No ischemic changes on EKG (5) Type 2 diabetes mellitus with peripheral neuropathy: Plan: On glimepiride at home SSI Plan Discussed CODE STATUS with patient, she wishes to remain DNR Her son is her surrogate decision-maker Lab Results 05/01/24 05:14 05/01/24 05:14 Diagnostic Imaging Results Diagnostic Imaging Results: positive Final report reviewed Diagnostic Imaging Results Comments: CT head, CT spine, facial bones no acute fracture CXR no acute abnormality EKG Results EKG Interpreted Independently: Yes EKG Findings: NSR, first-degree AV block
[2024-05-01 13:43] LABS: BILIRUBIN,URINE NEGATIVE (NEGATIVE); GLUCOSE, URINE (UA) NEGATIVE (NEGATIVE); KETONES,URINE (UA) NEGATIVE (NEGATIVE); LEUKOCYTE ESTERASE, URINE TRACE (NEGATIVE); NITRITE,URINE NEGATIVE (NEGATIVE); OCCULT BLOOD,URINE LARGE (NEGATIVE); PROTEIN,URINE TRACE mg/dL (NEGATIVE); UROBILINOGEN,URINE 0.2 (NORMAL) E.U./dL (NORMAL)
[2024-05-01 13:46] LABS: CLARITY,URINE HAZY (CLEAR)
[2024-05-01 13:51] LABS: WBC,URINE 0-3 /HPF (0-5)
[2024-05-01 13:52] LABS: BACTERIA,URINE Many /HPF (None Seen); RBC,URINE 0-5 /HPF (0-5); SQUAMOUS EPITHELIAL CELL,UR RARE Squamous (<= Few)
[2024-05-01] MEDS ORDERED: ONDANSETRON 4 MG/2 ML VIAL IVP PRN (15:00)
[2024-05-01] MEDS ORDERED: ACETAMINOPHEN 325 MG TABLET PO PRN (15:00)
[2024-05-01] MEDS ORDERED: SODIUM CHLORIDE FLUSH 0.9% 10 ML SYRINGE IVP PRN (15:00)
--- NOTE | 2024-05-01 15:44 | PHARMACY PROGRESS NOTE ---
Best Possible Medication History Admit Date and Time: 05/01/24 [id number] Home Medications Medication Instructions Recorded Confirmed Type aspirin 81 mg tablet,delayed 81 mg PO DAILY 09/02/13 05/01/24 History release (Aspir-) carvedilol 25 mg tablet (Coreg) 50 mg PO BID 04/14/20 05/01/24 History Permanent Disabled Placard 04/17/24 04/17/24 History blood sugar diagnostic (True 04/17/24 04/17/24 History Metrix Glucose Test Strip) blood-glucose meter (True Metrix 04/17/24 04/17/24 History Glucose Meter) cholecalciferol (vitamin D3) 125 125 mcg PO .TIW 04/17/24 05/01/24 History mcg (5,000 unit) capsule glimepiride 1 mg tablet 1 mg PO QDAY 04/17/24 05/01/24 History lancets 30 gauge (True Comfort 04/17/24 04/17/24 History Lancet) losartan 50 mg tablet 50 mg PO DAILY 04/17/24 05/01/24 History nitroglycerin 0.4 mg sublingual 0.4 mg sublingual Q5M PRN chest 04/17/24 History tablet (Nitrostat) pain omega 8-gms-xan-fish oil 300 1 cap PO QDAY 04/17/24 05/01/24 History mg-1,000 mg capsule (Fish Oil) omeprazole 20 mg tablet,delayed 20 mg PO .QOD 04/17/24 05/01/24 History release spironolactone 25 mg tablet 25 mg PO DAILY 04/17/24 05/01/24 History (Aldactone) atorvastatin 20 mg tablet (Lipitor) 10 mg PO QPM 05/01/24 05/01/24 History biotin 5,000 mcg chewable tablet 5,000 mcg PO DAILY 05/01/24 05/01/24 History coenzyme Q10 30 mg capsule (Co 30 mg PO DAILY 05/01/24 05/01/24 History Q-10) furosemide 20 mg tablet 20 mg PO DAILY 05/01/24 05/01/24 History isosorbide mononitrate 60 mg 60 mg PO DAILY 05/01/24 05/01/24 History tablet,extended release 24 hr magnesium citrate 100 mg capsule 100 mg PO DAILY 05/01/24 05/01/24 History Processed by: Pharmacy Medications reviewed in ED?: No Medication History completed: Yes Patient Interview: Completed Secondary Source(s): Pharmacy records and Insurance records [facility] Statement: As the person ultimately responsible for medication therapy, providers are able to order a medication from an existing home medication list in [facility] via the "Reconcile Routine" prior to Confirmation of that medication by life support technician. Such practice is discouraged except when the physician, in their clinical judgment, deems that a medical need exists for a medication without regard to previous use.
[2024-05-01] MEDS ORDERED: cefTRIAXone 1 GM VIAL IVP SCH (15:59)
[2024-05-01] MEDS: SODIUM CHLORIDE FLUSH 0.9% 10 ML SYRINGE IVP SCH (16:36)
[2024-05-01] MEDS: ISOSORBIDE MONONITRATE ER 30 MG TABLET PO SCH (16:39)
[2024-05-01] MEDS: INSULIN LISPRO 300 UNIT/3 ML PEN SUBQ SCH (16:42)
[2024-05-01] MEDS ORDERED: IBUPROFEN 400 MG TABLET PO PRN (16:54)
--- NOTE | 2024-05-01 17:05 | PT Plan of Care ---
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 No LOC but significant facial contusions. Pt denies headache and states her vision is normal. Pt is indep at baseline, lives alone with dog "Kimmy" in multistory home, set up for first level living, but has 3 DE. Has a cane, shower chair, walk in shower. Upon PT eval, pt reports LBP, chronic in nature not d/t fall. Transfers to EOB with CGA, STS w/ FWW and CGA and short distance amb with FWW and cueing. Pt mildly unsteady when walking; plan to progress gait training and determine safest AD. Pt will benefit from skilled PT in acute setting to improve balance, gait pattern and reduce fall risk. When medically clear, PT rec dc to home with HHPT vs OPPT pending progress. GOALS Improve supine to sit to:: Modified Independent Improve sit to stand to:: Modified Independent Improve sit to supine to:: Modified Independent Improve gait ability to:: Ind Advance Assistive Device to:: Front Wheeled Walker and Quad Cane Increase distance walked to (in feet):: 60 PLAN Frequency: 1-2x/day Duration: Until goals are met DISCHARGE RECOMMENDATIONS Discharge Location: Previous Living Situation Support/Services Needed: HH vs OPPT DC Equipment Recommended: Front wheeled walker and Cane Other Discharge Equipment: FWW vs cane, TBD at dc Transport Needs at Discharge: Personal vehicle
[2024-05-01] MEDS: traMADol 50 MG TABLET PO PRN (17:57)
[2024-05-01] MEDS: HEPARIN 5,000 UNIT/ML VIAL SUBQ SCH (21:11)
[2024-05-01] MEDS: AMOX/CLAV 500 MG/125 MG TABLET PO SCH (21:12)
[2024-05-01] MEDS: ATORVASTATIN 10 MG TABLET PO SCH (21:12)
[2024-05-01] MEDS: carvediloL 12.5 MG TABLET PO SCH (21:12)
[2024-05-02] MEDS: PANTOPRAZOLE 40 MG TABLET PO SCH (06:03)
[2024-05-02 06:14] LABS: BASOPHILS % (AUTO) 0.3 %; EOSINOPHILS # (AUTO) 0.1 10^3/uL (0.0-0.7); HCT - HEMATOCRIT 31.1 % (37.0-47.0); LYMPHOCYTES # (AUTO) 0.9 10^3/uL (1.5-3.5); LYMPHOCYTES % (AUTO) 9.4 %; MEAN CORPUSCULAR HEMOGLOBIN 29.8 pg (27.0-31.0); MEAN CORPUSCULAR HGB CONC 32.2 g/dL (32.0-36.0); MEAN CORPUSCULAR VOLUME 92.6 fL (81.0-99.0); MEAN PLATELET VOLUME 10.5 fL (7.9-10.8); MONOCYTES # (AUTO) 1.2 10^3/uL (0.0-1.0); MONOCYTES % (AUTO) 13.2 %; NEUTROPHILS # (AUTO) 6.8 10^3/uL (1.5-6.6); NEUTROPHILS % (AUTO) 75.5 %; PLT - PLATELET COUNT 146 10^3/uL (130-450); RED BLOOD COUNT 3.36 10^6/uL (4.20-5.40); RED CELL DISTRIBUTION WIDTH 13.6 % (12.0-15.0)
[2024-05-02 06:20] LABS: CALCIUM 8.8 mg/dL (8.5-10.3); POTASSIUM 4.2 mmol/L (3.5-4.5)
[2024-05-02] MEDS: ASPIRIN EC 81 MG TABLET PO SCH (09:41)
[2024-05-02] MEDS: SPIRONOLACTONE 25 MG TABLET PO SCH (09:41)
[2024-05-02] MEDS: LOSARTAN 50 MG TABLET PO SCH (09:41)
[2024-05-02 09:50] LABS: ESTIMATED AVERAGE GLUCOSE 154 mg/dL (70-100)
[2024-05-02] MEDS: CHOLECALCIFEROL 5,000 UNIT CAPSULE PO SCH (10:09)
[2024-05-02] MEDS: OMEGA-3 ACID ETHYL ESTERS 1 GM CAPSULE PO SCH (10:18)
[2024-05-02] MEDS: BIOTIN 5000 MCG PO SCH (10:21)
[2024-05-02] MEDS: COENZYME Q10 30 MG PO SCH (10:22)
[2024-05-02 11:51] VITALS: O2SAT 96
--- NOTE | 2024-05-02 12:42 | Discharge Summary ---
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 She normally ambulates at home with a cane and also leaning on furniture. She reports that one of her falls was mechanical, but She did fall once and does not remember how she fell. In the ER, she has noted to have bruising on the right elbow, right knee, and face. CT head, facial bones, C-spine was performed and was without acute fracture. CXR without acute abnormality. EKG NSR, sodium 129, Cr 3.2, previously 1.7 HOSPITAL COURSE Hospital Course: She was placed in observation for telemetry. Echocardiogram showed no severe valvular disease. Telemetry without incident. She was evaluated by physical therapy, who recommends home health PT and front wheel walker. CR today is 2, sodium 132. I am discharging her home with home health ALLERGIES Allergies Allergy/AdvReac Type Severity Reaction Status Date / Time erythromycin base Allergy Intermediate Rash Verified 04/17/24 07:52 (Erythromycin Base) NSAIDS (Non-Steroidal AdvReac Unknown Verified 05/01/24 10:08 Anti-Inflamma MEDICATIONS Ambulatory Orders Medication Instructions Recorded Confirmed aspirin 81 mg tablet,delayed 81 mg PO DAILY 09/02/13 05/01/24 release (Aspir-) carvedilol 25 mg tablet (Coreg) 50 mg PO BID 04/14/20 05/01/24 Permanent Disabled Placard 04/17/24 04/17/24 blood sugar diagnostic (True 04/17/24 04/17/24 Metrix Glucose Test Strip) blood-glucose meter (True Metrix 04/17/24 04/17/24 Glucose Meter) cholecalciferol (vitamin D3) 125 125 mcg PO .TIW 04/17/24 05/01/24 mcg (5,000 unit) capsule glimepiride 1 mg tablet 1 mg PO QDAY 04/17/24 05/01/24 lancets 30 gauge (True Comfort 04/17/24 04/17/24 Lancet) losartan 50 mg tablet 50 mg PO DAILY 04/17/24 05/01/24 nitroglycerin 0.4 mg sublingual 0.4 mg sublingual Q5M PRN chest 04/17/24 05/01/24 tablet (Nitrostat) pain omega 1-rdg-aef-fish oil 300 1 cap PO QDAY 04/17/24 05/01/24 mg-1,000 mg capsule (Fish Oil) omeprazole 20 mg tablet,delayed 20 mg PO .QOD 04/17/24 05/01/24 release spironolactone 25 mg tablet 25 mg PO DAILY 04/17/24 05/01/24 (Aldactone) atorvastatin 20 mg tablet (Lipitor) 10 mg PO QPM 05/01/24 05/01/24 biotin 5,000 mcg chewable tablet 5,000 mcg PO DAILY 05/01/24 05/01/24 coenzyme Q10 30 mg capsule (Co 30 mg PO DAILY 05/01/24 05/01/24 Q-10) furosemide 20 mg tablet 20 mg PO DAILY 05/01/24 05/01/24 isosorbide mononitrate 60 mg 60 mg PO DAILY 05/01/24 05/01/24 tablet,extended release 24 hr magnesium citrate 100 mg capsule 100 mg PO DAILY 05/01/24 05/01/24 amoxicillin 500 mg-potassium 1 tab PO BID 10 days #20 tabs 05/02/24 clavulanate 125 mg tablet PHYSICAL EXAM AT DISCHARGE General Appearance: positive No acute distress and Alert Eyes Bilateral: positive Other (Periorbital bruising) ENT: positive Other (Bruising) Neck: positive Nml inspection Respiratory: positive Chest non-tender and No respiratory distress Cardiovascular: positive Regular rate & rhythm and No murmur Peripheral Pulses: positive 2+ Abdomen: positive Non-tender Rectal: positive Non-tender Back: positive Nml inspection Skin: positive Other (Bruising on face, right elbow, right knee) Extremities: positive Non-tender Neurologic/Psychiatric: positive Oriented x3 LABS 05/02/24 05:27 05/02/24 05:27 DIAGNOSTIC IMAGING Diagnostic Imaging Results: Final report reviewed Diagnostic Imaging Results Comments: CT head, C-spine, facial bones negative for acute fracture CXR negative for acute abnormality FOLLOW UP Follow Up: With PCP TIME SPENT Time Spent in Discharge (Minutes): 35 Discharge Plan Discharge Patient Disposition: 01 Home, Self Care Condition: Stable Medically Cleared Date:: 05/02/24 Prescriptions: New amoxicillin-pot clavulanate 500-125 mg Tablet 1 tab PO BID 10 Days Qty: 20 0RF Continued aspirin [Aspir-81] 81 MG tablet,delayed release (DR/EC) 81 mg PO DAILY losartan 50 mg tablet 50 mg PO DAILY Rx Instructions: Take 1 tablet by mouth every day. carvedilol [Coreg] 25 MG tablet 50 mg PO BID spironolactone [Aldactone] 25 mg tablet 25 mg PO DAILY Rx Instructions: Take 1 tablet by mouth every morning. biotin 5,000 mcg tablet,chewable 5,000 mcg PO DAILY coenzyme Q10 [Co Q-10] 30 mg capsule 30 mg PO DAILY furosemide 20 mg tablet 20 mg PO DAILY Patient Comments: take 1 tablet by mouth once daily isosorbide mononitrate 60 mg tablet extended release 24 hr 60 mg PO DAILY Patient Comments: take 1 tablet by mouth every morning magnesium citrate 100 mg capsule 100 mg PO DAILY atorvastatin [Lipitor] 20 mg tablet 10 mg PO QPM cholecalciferol (vitamin D3) 125 mcg (5,000 unit) capsule 125 mcg PO .TIW Rx Instructions: Take 1 tablet by mouth once a day (DME) Permanent Disabled Placard [facility] See Rx Instructions .ROUTE Rx Instructions: Use 1 as directed. Patient is unable to walk 200 feet without stopping to rest. Severe arthritic condition. omega 9-knd-wpe-fish oil [Fish Oil] 300-1,000 mg capsule 1 cap PO QDAY Rx Instructions: Take 1 capsule daily by mouth glimepiride 1 mg tablet 1 mg PO QDAY Rx Instructions: Take 1 tablet by mouth once daily nitroglycerin [Nitrostat] 0.4 mg tablet, sublingual 0.4 mg sublingual Q5M PRN (Reason: chest pain) Rx Instructions: Take 1 tablet under tongue as directed as needed for chest pain. May repeat every five minutes as needed x2. Call 911 if no relief after 2 doses. omeprazole 20 mg tablet,delayed release (DR/EC) 20 mg PO .QOD Rx Instructions: Take 1 capsule by mouth once a day. Take 1/2 hour before first meal of the day. (DME) lancets [True Comfort Lancet] 30 gauge misc See Rx Instructions .ROUTE Rx Instructions: Use 1 lancet via meter once a day to check blood sugar levels. Dx: E11.9 (DME) blood-glucose meter [True Metrix Glucose Meter] Misc See Rx Instructions .ROUTE Rx Instructions: As directed (DME) True Metrix Glucose Test Strip Strip See Rx Instructions .ROUTE Rx Instructions: Use 1 strip via meter once a day to check blood sugar. Diet: Regular Health Concerns: Urine 88-year-old female with history significant for diabetes, hypertension, hyperlipidemia who presented with multiple falls. 1 fall in particular was concerning since he did not remember the circumstances that led to the fall. You were seen in the ED and imaging was negative for any injury. Your EKG did not show any ischemic changes. You were noted to have low sodium, and elevated kidney levels. You were held in observation for IV fluids and for antibiotics. Your kidney levels are better today. You were evaluated by physical therapy and they recommended that you are safe to go home with home health PT. I would encourage you to finish your course of antibiotics and to increase your water intake for a few days as your kidneys recover Plan of Treatment: Home health PT Antibiotic Drink water, Gatorade, juice Print Language: [place] Patient Instructions: ED Prevention Fall Stand Alone Forms: PCP List
== END 2024-05-02 14:34 | disposition home health service (06) ==
LOC: MS3 04:37 → ED 04:37 → MS3 14:56
PROVIDERS: ADMIT Nurse Practitioner Acute Care; ATTEND Nurse Practitioner Acute Care
DX: S80.01XA Contusion of right knee, initial encounter; Z87.891 Personal history of nicotine dependence; W19.XXXA Unspecified fall, initial encounter; N17.9 Acute kidney failure, unspecified; I12.9 Hypertensive chronic kidney disease with stage 1 through stage 4 chronic kidney disease, or unspecified chronic kidney disease; R53.1 Weakness; N18.31 Chronic kidney disease, stage 3a; D64.9 Anemia, unspecified; I44.0 Atrioventricular block, first degree; E11.42 Type 2 diabetes mellitus with diabetic polyneuropathy; Z79.899 Other long term (current) drug therapy; M54.2 Cervicalgia; Y92.000 Kitchen of unspecified non-institutional (private) residence as the place of occurrence of the external cause; Z79.84 Long term (current) use of oral hypoglycemic drugs; E11.22 Type 2 diabetes mellitus with diabetic chronic kidney disease; Z79.82 Long term (current) use of aspirin; S50.01XA Contusion of right elbow, initial encounter; R79.89 Other specified abnormal findings of blood chemistry; R55 Syncope and collapse; E87.1 Hypo-osmolality and hyponatremia; S00.83XA Contusion of other part of head, initial encounter; I07.1 Rheumatic tricuspid insufficiency; E78.5 Hyperlipidemia, unspecified